=== PATIENT | female | born 1950 | race African-American/Black ===

== ENCOUNTER 2018-02-26 11:37 | Emergency (ER) | payer MEDICARE, OTHER ==
[~2018-02-26] VITALS: Ht 578.2 cm; Wt 96.0 kg
[2018-02-26] MEDS ORDERED: ondansetron/PF 4mg/2ml inj IV ONE (13:00)
[2018-02-26 13:32] LABS: BASOPHILS % (AUTO) 0.6 % (0-1); EOSINOPHILS # (AUTO) 0.3 X10'3 (0-0.9); EOSINOPHILS % (AUTO) 3.6 % (0-6); HEMATOCRIT 39.3 % (35.0-45.0); HEMOGLOBIN 13.3 g/dl (12.0-16.0); LYMPHOCYTES # (AUTO) 1.5 X10'3 (1.1-4.8); LYMPHOCYTES % (AUTO) 20.3 % (21-51); MEAN CORPUSCULAR HEMOGLOBIN 29.2 PG (27.0-31.0); MEAN CORPUSCULAR HGB CONC 33.7 % (33.0-36.5); MEAN CORPUSCULAR VOLUME 86.7 FL (78-98); MEAN PLATELET VOLUME 8.1 FL (7.4-10.4); MONOCYTES # (AUTO) 0.6 X10'3 (0-0.9); MONOCYTES % (AUTO) 7.9 % (2-12); NEUTROPHILS # (AUTO) 4.9 X10'3 (1.8-7.7); NEUTROPHILS % (AUTO) 67.6 % (42-75); PLATELET COUNT 234 X10'3 (140-440); RED BLOOD COUNT 4.53 X10'6 (4.20-5.60); RED CELL DISTRIBUTION WIDTH 16.5 % (11.5-14.5); WHITE BLOOD COUNT 7.2 X10'3 (4.5-11.0)
[2018-02-26 13:46] LABS: ALANINE AMINOTRANSFERASE 21 U/L (12-78); ALBUMIN 3.1 G/DL (3.4-5.0); ALBUMIN/GLOBULIN RATIO 0.8 (1.1-1.5); ALKALINE PHOSPHATASE 123 IU/L (46-116); ANION GAP 7 (8-16); ASPARTATE AMINO TRANSFERASE 25 U/L (10-37); BILIRUBIN,TOTAL 0.4 MG/DL (0.1-1.0); BLOOD UREA NITROGEN 4 MG/DL (7-18); BUN/CREATININE RATIO 3.6 (6.6-38.0); CALCIUM 9.2 MG/DL (8.5-10.1); CHLORIDE 107 MMOL/L (99-107); CREATININE 1.12 MG/DL (0.40-0.90); GLUCOSE 103 MG/DL (70-104); LIPASE 107 U/L (73-393); POTASSIUM 3.2 MMOL/L (3.5-5.1); SODIUM 145 MMOL/L (135-145); TOTAL CARBON DIOXIDE 31.5 MMOL/L (24-32); TOTAL PROTEIN 6.9 G/DL (6.4-8.2); eGFR 48 ML/MIN
[2018-02-26] MEDS ORDERED: ONDA4TAB6 PO (14:03)
[2018-02-26 14:13] VITALS: BP 152/88
== END 2018-02-26 14:14 | disposition home or self-care (01) ==
LOC: ER 11:38
DX: K74.60 Unspecified cirrhosis of liver (principal); R19.7 Diarrhea, unspecified; R11.0 Nausea; E11.42 Type 2 diabetes mellitus with diabetic polyneuropathy; I10 Essential (primary) hypertension; J44.9 Chronic obstructive pulmonary disease, unspecified; K42.9 Umbilical hernia without obstruction or gangrene; Z90.49 Acquired absence of other specified parts of digestive tract; Z88.5 Allergy status to narcotic agent; Z79.899 Other long term (current) drug therapy
CPT/HCPCS: 36415; 74176; 80053; 83690; 85025; 96374; 99285; J2405

== ENCOUNTER 2018-03-05 15:34 | Emergency (ER) | payer MEDICARE, OTHER ==
[~2018-03-05] VITALS: Ht 167.6 cm; Wt 96.0 kg
[~2018-03-05 15:34] MED LIST: ONDA4TAB6 PO
[2018-03-05 16:04] LABS: BASOPHILS % (AUTO) 0.4 % (0-1); EOSINOPHILS # (AUTO) 0.4 X10'3 (0-0.9); EOSINOPHILS % (AUTO) 6.6 % (0-6); HEMOGLOBIN 13.5 g/dl (12.0-16.0); LYMPHOCYTES # (AUTO) 1.3 X10'3 (1.1-4.8); LYMPHOCYTES % (AUTO) 20.7 % (21-51); MEAN CORPUSCULAR HEMOGLOBIN 29.1 PG (27.0-31.0); MEAN CORPUSCULAR HGB CONC 33.7 % (33.0-36.5); MEAN CORPUSCULAR VOLUME 86.4 FL (78-98); MEAN PLATELET VOLUME 9.1 FL (7.4-10.4); MONOCYTES # (AUTO) 0.5 X10'3 (0-0.9); MONOCYTES % (AUTO) 8.4 % (2-12); NEUTROPHILS # (AUTO) 3.9 X10'3 (1.8-7.7); NEUTROPHILS % (AUTO) 63.9 % (42-75); PLATELET COUNT 228 X10'3 (140-440); RED BLOOD COUNT 4.63 X10'6 (4.20-5.60); RED CELL DISTRIBUTION WIDTH 16.8 % (11.5-14.5); WHITE BLOOD COUNT 6.2 X10'3 (4.5-11.0)
[2018-03-05 16:14] LABS: INR 1.1 INR; PARTIAL THROMBOPLASTIN TIME 28 SECONDS (22-32); PROTHROMBIN TIME 11.2 SECONDS (9.0-12.0)
[2018-03-05 16:19] LABS: ALANINE AMINOTRANSFERASE 20 U/L (12-78); ALBUMIN 3.1 G/DL (3.4-5.0); ALBUMIN/GLOBULIN RATIO 0.8 (1.1-1.5); ALKALINE PHOSPHATASE 124 IU/L (46-116); ANION GAP 8 (8-16); ASPARTATE AMINO TRANSFERASE 26 U/L (10-37); BILIRUBIN,TOTAL 0.5 MG/DL (0.1-1.0); BLOOD UREA NITROGEN 5 MG/DL (7-18); BUN/CREATININE RATIO 4.1 (6.6-38.0); CALCIUM 9.1 MG/DL (8.5-10.1); CHLORIDE 104 MMOL/L (99-107); CREATININE 1.23 MG/DL (0.40-0.90); GLUCOSE 196 MG/DL (70-104); SODIUM 143 MMOL/L (135-145); TOTAL CARBON DIOXIDE 31.5 MMOL/L (24-32); eGFR 52 ML/MIN
[2018-03-05 16:22] LABS: POTASSIUM 2.6 MMOL/L (3.5-5.1)
[2018-03-05] MEDS ORDERED: potassium 10mEq/100ml NS w/LIDOcaine (10mg/bag) IV ONE (16:40)
[2018-03-05] MEDS ORDERED: potassium Cl 20 mEq SR tablet PO ONE (16:40)
[2018-03-05] MEDS ORDERED: ondansetron/PF 4mg/2ml inj IV ONE (16:40)
[2018-03-05 17:13] LABS: LIPASE 68 U/L (73-393)
[2018-03-05 18:27] LABS: CLARITY,URINE SLIGHTLY CLOUDY (Clear); COLOR,URINE YELLOW (Yellow); GLUCOSE, URINE NEGATIVE (Neg); KETONES,URINE NEGATIVE (Neg); LEUKOCYTE ESTERASE ,URINE MODERATE (Neg); NITRITES, URINE NEGATIVE (Neg); OCCULT BLOOD,URINE TRACE-INTACT (Neg); PROTEIN,URINE 30 mg/dl (Neg); UROBILINOGEN,URINE 0.2 E.U/dL (0.2-1.0)
[2018-03-05 18:29] LABS: UA COLLECTION TYPE CLN CATCH MIDSTREAM
[2018-03-05 18:39] LABS: WBC,URINE 30-50 /HPF (0-4)
[2018-03-05 18:40] LABS: RBC,URINE 0-2 /HPF (0-2)
[2018-03-05 18:41] LABS: BACTERIA,URINE FEW /HPF (Neg); MUCUS STRANDS MODERATE /LPF (Neg); SQUAMOUS EPITHELIAL CELL,UR MODERATE /LPF (FEW); TRANSITIONAL EPI CELLS,URINE FEW /HPF
[2018-03-05] MEDS ORDERED: ONDA4TAB6 PO (19:44)
[2018-03-05 20:14] VITALS: BP 127/73
== END 2018-03-05 20:16 | disposition home or self-care (01) ==
LOC: ER 15:35
DX: E87.6 Hypokalemia (principal); R11.2 Nausea with vomiting, unspecified; R53.81 Other malaise; G62.9 Polyneuropathy, unspecified; I10 Essential (primary) hypertension; J44.9 Chronic obstructive pulmonary disease, unspecified; E11.9 Type 2 diabetes mellitus without complications; G89.29 Other chronic pain; Z76.0 Encounter for issue of repeat prescription; Z86.73 Personal history of transient ischemic attack (TIA), and cerebral infarction without residual deficits; Z90.49 Acquired absence of other specified parts of digestive tract; Z90.710 Acquired absence of both cervix and uterus; Z88.5 Allergy status to narcotic agent; Z85.3 Personal history of malignant neoplasm of breast
CPT/HCPCS: 36415; 71045; 80053; 81001; 83690; 84484; 85025; 85610; 85730; 87077; 87088; 93005; 96365; 96375; 99285; J2405; 96361; 96374

== ENCOUNTER 2018-03-19 21:26 | Inpatient (IN) | payer MEDICARE, OTHER ==
[~2018-03-19] VITALS: Ht 167.6 cm; Wt 98.4 kg
[2018-03-19 00:40] VITALS: BP 93/71
[2018-03-19] MEDS ORDERED: morphine 4 MG/ML inj SYRINge IV ONE (21:50)
[2018-03-19] MEDS ORDERED: aspirin 81mg tab.chew PO ONE (21:50)
[2018-03-19 22:05] LABS: BASOPHILS % (AUTO) 0.4 % (0-1); EOSINOPHILS # (AUTO) 0.3 X10'3 (0-0.9); EOSINOPHILS % (AUTO) 3.8 % (0-6); HEMATOCRIT 38.8 % (35.0-45.0); HEMOGLOBIN 12.8 g/dl (12.0-16.0); LYMPHOCYTES # (AUTO) 2.1 X10'3 (1.1-4.8); LYMPHOCYTES % (AUTO) 29.6 % (21-51); MEAN CORPUSCULAR HEMOGLOBIN 29.1 PG (27.0-31.0); MEAN CORPUSCULAR HGB CONC 32.9 % (33.0-36.5); MEAN CORPUSCULAR VOLUME 88.3 FL (78-98); MONOCYTES # (AUTO) 0.6 X10'3 (0-0.9); MONOCYTES % (AUTO) 8.7 % (2-12); NEUTROPHILS # (AUTO) 4.1 X10'3 (1.8-7.7); NEUTROPHILS % (AUTO) 57.5 % (42-75); PLATELET COUNT 192 X10'3 (140-440); RED BLOOD COUNT 4.39 X10'6 (4.20-5.60); RED CELL DISTRIBUTION WIDTH 16.6 % (11.5-14.5); WHITE BLOOD COUNT 7.2 X10'3 (4.5-11.0)
[2018-03-19 22:17] LABS: INR 1.1 INR; PARTIAL THROMBOPLASTIN TIME 27 SECONDS (22-32); PROTHROMBIN TIME 11.1 SECONDS (9.0-12.0)
[2018-03-19 22:31] LABS: ALANINE AMINOTRANSFERASE 26 U/L (12-78); ALBUMIN 3.1 G/DL (3.4-5.0); ALBUMIN/GLOBULIN RATIO 0.9 (1.1-1.5); ALKALINE PHOSPHATASE 115 IU/L (46-116); ANION GAP 8 (8-16); ASPARTATE AMINO TRANSFERASE 36 U/L (10-37); BILIRUBIN,TOTAL 0.3 MG/DL (0.1-1.0); BLOOD UREA NITROGEN 4 MG/DL (7-18); CALCIUM 9.3 MG/DL (8.5-10.1); CHLORIDE 104 MMOL/L (99-107); GLUCOSE 124 MG/DL (70-104); SODIUM 143 MMOL/L (135-145); TOTAL CARBON DIOXIDE 31.5 MMOL/L (24-32); TOTAL PROTEIN 6.4 G/DL (6.4-8.2); eGFR 60 ML/MIN
[2018-03-19 22:39] LABS: BUN/CREATININE RATIO 3.6 (6.6-38.0); POTASSIUM 2.6 MMOL/L (3.5-5.1)
[2018-03-19] MEDS ORDERED: potassium Cl oral solution 20 MEQ/15 ML PO ONE (22:45)
[2018-03-19] MEDS ORDERED: nitroGLYCERIN 0.4mg SUBLingual tab SL PRN (23:05)
[2018-03-19] MEDS ORDERED: HYDR200T84 PO (23:29)
[2018-03-19] MEDS ORDERED: TRAM50TA2 PO (23:29)
[2018-03-19] MEDS ORDERED: PREG50CA PO (23:29)
[2018-03-19] MEDS ORDERED: FERR324T2 (23:29)
[2018-03-19] MEDS ORDERED: FERR324T (23:29)
[2018-03-19] MEDS ORDERED: LACT-28 PO (23:29)
[2018-03-19] MEDS ORDERED: ATOR80TA PO (23:29)
[2018-03-19] MEDS ORDERED: POTA20PA40 (23:29)
[2018-03-19] MEDS ORDERED: ISOS30TA6 PO (23:29)
[2018-03-19] MEDS ORDERED: ASPI-1265 PO (23:29)
[2018-03-19] MEDS ORDERED: DULO20CA50 PO (23:29)
[2018-03-19] MEDS ORDERED: CLOP75TA35 PO (23:29)
[2018-03-19] MEDS ORDERED: METO25TA6 PO (23:38)
[2018-03-19] MEDS ORDERED: FOLI0.4T2 PO (23:38)
[2018-03-19] MEDS ORDERED: DOCU250C4 PO (23:38)
[2018-03-19] MEDS ORDERED: MIRT15TA PO (23:38)
[2018-03-19] MEDS ORDERED: ALBU18HF2 INH (23:38)
[2018-03-19] MEDS ORDERED: SYN0.088T PO (23:38)
[2018-03-19] MEDS ORDERED: MAGN400T29 PO (23:38)
[2018-03-19] MEDS ORDERED: PANT-47 PO (23:38)
[2018-03-19] MEDS ORDERED: ONDA4TAB9 PO (23:38)
[2018-03-19] MEDS ORDERED: CALC-1197 PO (23:38)
[2018-03-19] MEDS ORDERED: THI100T PO (23:38)
[2018-03-19] MEDS ORDERED: albuterol 2.5 MG/3 ML nebule NEB PRN (23:45)
[2018-03-19] MEDS ORDERED: ondansetron 4mg rapidly disintigrating tab PO PRN (23:45)
[2018-03-19] MEDS ORDERED: magnesium 1gm/100ml D5W IVPB 100 ML IV PRN (23:50)
[2018-03-19] MEDS ORDERED: insulin Lispro (HumaLOG) vial - multi-dose SQ SCH (23:50)
[2018-03-19] MEDS ORDERED: glucagon, human recombinant 1mg kit SUBCUT PRN (23:50)
[2018-03-19] MEDS ORDERED: MESSAGE TO PHARMACY PO ONE (23:50)
[2018-03-19] MEDS ORDERED: ipratropium/albuterol 3ml nebule NEB PRN (23:50)
[2018-03-19] MEDS ORDERED: dextrose ORAL solution 15 GM/59 ML bottle PO PRN ×2 (23:50)
[2018-03-19] MEDS ORDERED: potassium Cl 40MEQ/NS 500ml 500 ML IV PRN ×2 (23:50)
[2018-03-19] MEDS ORDERED: magnesium 4gm in 100ml NS 100 ML IV PRN (23:50)
[2018-03-19] MEDS ORDERED: potassium Cl 20 mEq SR tablet PO PRN (23:50)
[2018-03-19] MEDS ORDERED: dextrose 50%-water 50ml dispensing syringe IV PRN ×2 (23:50)
[2018-03-19] MEDS ORDERED: acetaminophen 325mg tablet PO PRN ×2 (23:50)
[2018-03-19] MEDS ORDERED: ondansetron/PF 4mg/2ml inj IV PRN (23:50)
[2018-03-20] VITALS (23 sets, daily range): BP systolic 102–156; BP diastolic 55–93
[2018-03-20] MEDS ORDERED: metoprolol tartrate 1mg/ml inj IV PRN
[2018-03-20] MEDS ORDERED: CAFFEINE CITRATE 60 MG/3 ML injection vial IV PRN
[2018-03-20] MEDS: nitroGLYCERIN 0.4mg SUBLingual tab SL PRN ×2 (00:43→00:50)
[2018-03-20] MEDS ORDERED: morphine 2 MG/ML inj. syringe IV PRN (00:50)
[2018-03-20] MEDS ORDERED: morphine 4 MG/ML inj SYRINge IV PRN (00:50)
[2018-03-20] MEDS: pregabalin 25mg capsule PO SCH ×4 (01:11→23:12)
[2018-03-20 04:28] LABS: ALANINE AMINOTRANSFERASE 26 U/L (12-78); ALBUMIN/GLOBULIN RATIO 0.9 (1.1-1.5); ALKALINE PHOSPHATASE 100 IU/L (46-116); ANION GAP 5 (8-16); ASPARTATE AMINO TRANSFERASE 30 U/L (10-37); BILIRUBIN,TOTAL 0.4 MG/DL (0.1-1.0); BLOOD UREA NITROGEN 4 MG/DL (7-18); BUN/CREATININE RATIO 3.7 (6.6-38.0); CHLORIDE 104 MMOL/L (99-107); CREATININE 1.09 MG/DL (0.40-0.90); GLUCOSE 109 MG/DL (70-104); POTASSIUM 3.4 MMOL/L (3.5-5.1); SODIUM 142 MMOL/L (135-145); TOTAL CARBON DIOXIDE 33.4 MMOL/L (24-32); TOTAL PROTEIN 6.2 G/DL (6.4-8.2); eGFR 60 ML/MIN
[2018-03-20 04:31] LABS: CHOL/HDL RATIO 1.7 (0.00-4.99); CHOLESTEROL 108 MG/DL (0-200); HDL CHOLESTEROL 64 MG/DL (35-60); LDL CHOLESTEROL 39 MG/DL (50-100); MAGNESIUM 1.7 MG/DL (1.5-2.4); TRIGLYCERIDES 66 MG/DL (20-135)
[2018-03-20 05:32] LABS: BASOPHILS % (AUTO) 0.5 % (0-1); EOSINOPHILS # (AUTO) 0.3 X10'3 (0-0.9); EOSINOPHILS % (AUTO) 5.3 % (0-6); HEMATOCRIT 36.8 % (35.0-45.0); HEMOGLOBIN 12.5 g/dl (12.0-16.0); LYMPHOCYTES # (AUTO) 1.7 X10'3 (1.1-4.8); LYMPHOCYTES % (AUTO) 29.8 % (21-51); MEAN CORPUSCULAR HEMOGLOBIN 29.9 PG (27.0-31.0); MEAN CORPUSCULAR HGB CONC 34.1 % (33.0-36.5); MEAN CORPUSCULAR VOLUME 87.9 FL (78-98); MEAN PLATELET VOLUME 9.4 FL (7.4-10.4); MONOCYTES # (AUTO) 0.6 X10'3 (0-0.9); MONOCYTES % (AUTO) 10.5 % (2-12); NEUTROPHILS # (AUTO) 3.1 X10'3 (1.8-7.7); NEUTROPHILS % (AUTO) 53.9 % (42-75); PLATELET COUNT 156 X10'3 (140-440); RED BLOOD COUNT 4.18 X10'6 (4.20-5.60); RED CELL DISTRIBUTION WIDTH 16.8 % (11.5-14.5); WHITE BLOOD COUNT 5.8 X10'3 (4.5-11.0)
[2018-03-20] MEDS ORDERED: regadenoson 0.4mg/5ml syringe IV ONE ×3 (07:50→09:24)
[2018-03-20] MEDS: folic acid 0.4mg tablet PO SCH (07:58)
[2018-03-20] MEDS: clopidogrel 75mg tablet PO SCH (07:58)
[2018-03-20] MEDS: potassium Cl 20 mEq SR tablet PO PRN ×3 (07:59→23:15)
[2018-03-20] MEDS: calcium carbonate/vitamin D3 tablet PO SCH ×2 (07:59→19:43)
[2018-03-20] MEDS: docusate sod 250mg capsule PO SCH (07:59)
[2018-03-20] MEDS: pantoprazole 40mg Tablet.DR PO SCH (07:59)
[2018-03-20] MEDS ORDERED: magnesium oxide 400mg tablet PO SCH (08:00)
[2018-03-20] MEDS: levoTHYROXINE 88mcg tablet PO SCH (08:00)
[2018-03-20] MEDS: metoprolol tartrate 25mg tablet PO SCH ×2 (08:00→19:43)
[2018-03-20] MEDS: isosorbide mononitrate 30mg tab.SR.24H PO SCH (08:00)
[2018-03-20] MEDS: aspirin 81mg tab.chew PO SCH (08:00)
[2018-03-20] MEDS: K and/or MAG REPLACEMENT MC SCH (08:00)
[2018-03-20] MEDS: hydroxychloroquine 200mg tablet PO SCH (08:00)
[2018-03-20] MEDS ORDERED: LACTOSE FREE FOOD PO SCH (08:00)
[2018-03-20] MEDS: duloxetine 20mg capsule.DR PO SCH (08:01)
[2018-03-20] MEDS: thiamine 100mg tablet PO SCH ×2 (08:01→19:43)
[2018-03-20] MEDS ORDERED: CAFFEINE CITRATE 60 MG/3 ML injection vial IV ONE (09:23)
[2018-03-20] MEDS ORDERED: midazolam 2 mg/2 ml injection ONE (15:55)
[2018-03-20] MEDS ORDERED: lidocaine 1%/epinephrine 1:100,000 injection 50ml vial ONE (15:55)
[2018-03-20] MEDS ORDERED: fentaNYL/PF 50MCG/1 ML 2ML syringe ONE (15:55)
[2018-03-20] MEDS ORDERED: iohexol 350MG/ML 100ml bottle IV ONE (15:56)
[2018-03-20] MEDS ORDERED: OXAZEpam 15mg capsule PO PRN (17:10)
[2018-03-20] MEDS ORDERED: normal saline 1000ml 1,000 ML IV SCH (17:10)
[2018-03-20] MEDS ORDERED: proCHLORperazine 10 MG/2 ml inj IV PRN (17:10)
[2018-03-20] MEDS: HYDROcodone/acetaminophen 5mg/325mg tablet PO PRN (19:44)
[2018-03-20] MEDS ORDERED: insulin glargine (Lantus) pen - multi-dose SQ SCH (21:00)
[2018-03-20] MEDS ORDERED: mirtazapine 15mg tablet PO SCH (21:00)
[2018-03-20] MEDS ORDERED: atorvastatin 20mg tablet PO SCH (21:00)
[2018-03-21 03:00] VITALS: BP 133/70
[2018-03-21 05:37] LABS: BASOPHILS % (AUTO) 0.5 % (0-1); EOSINOPHILS # (AUTO) 0.2 X10'3 (0-0.9); HEMATOCRIT 36.2 % (35.0-45.0); HEMOGLOBIN 12.1 g/dl (12.0-16.0); LYMPHOCYTES # (AUTO) 1.3 X10'3 (1.1-4.8); LYMPHOCYTES % (AUTO) 29.2 % (21-51); MEAN CORPUSCULAR HGB CONC 33.3 % (33.0-36.5); MEAN CORPUSCULAR VOLUME 86.9 FL (78-98); MEAN PLATELET VOLUME 9.5 FL (7.4-10.4); MONOCYTES # (AUTO) 0.4 X10'3 (0-0.9); MONOCYTES % (AUTO) 8.9 % (2-12); NEUTROPHILS # (AUTO) 2.6 X10'3 (1.8-7.7); NEUTROPHILS % (AUTO) 56.4 % (42-75); PLATELET COUNT 136 X10'3 (140-440); RED BLOOD COUNT 4.16 X10'6 (4.20-5.60); RED CELL DISTRIBUTION WIDTH 16.8 % (11.5-14.5); WHITE BLOOD COUNT 4.5 X10'3 (4.5-11.0)
[2018-03-21 05:57] LABS: ALANINE AMINOTRANSFERASE 25 U/L (12-78); ALBUMIN 2.8 G/DL (3.4-5.0); ALBUMIN/GLOBULIN RATIO 0.9 (1.1-1.5); ALKALINE PHOSPHATASE 110 IU/L (46-116); ANION GAP 6 (8-16); ASPARTATE AMINO TRANSFERASE 38 U/L (10-37); BILIRUBIN,TOTAL 0.5 MG/DL (0.1-1.0); BLOOD UREA NITROGEN 7 MG/DL (7-18); BUN/CREATININE RATIO 6.7 (6.6-38.0); CALCIUM 8.7 MG/DL (8.5-10.1); CHLORIDE 106 MMOL/L (99-107); CREATININE 1.04 MG/DL (0.40-0.90); GLUCOSE 98 MG/DL (70-104); MAGNESIUM 1.7 MG/DL (1.5-2.4); POTASSIUM 3.3 MMOL/L (3.5-5.1); SODIUM 142 MMOL/L (135-145); TOTAL CARBON DIOXIDE 30.5 MMOL/L (24-32); TOTAL PROTEIN 5.8 G/DL (6.4-8.2); eGFR 64 ML/MIN
[2018-03-21 07:19] VITALS: BP 145/80
[2018-03-21] MEDS: docusate sod 250mg capsule PO SCH (07:39)
[2018-03-21] MEDS: duloxetine 20mg capsule.DR PO SCH (07:39)
[2018-03-21] MEDS: HYDROcodone/acetaminophen 5mg/325mg tablet PO PRN (07:39)
[2018-03-21] MEDS: levoTHYROXINE 88mcg tablet PO SCH (07:39)
[2018-03-21] MEDS: hydroxychloroquine 200mg tablet PO SCH (07:39)
[2018-03-21] MEDS: folic acid 0.4mg tablet PO SCH (07:39)
[2018-03-21] MEDS: pregabalin 25mg capsule PO SCH (07:39)
[2018-03-21] MEDS: pantoprazole 40mg Tablet.DR PO SCH (07:39)
[2018-03-21] MEDS: aspirin 81mg tab.chew PO SCH (07:39)
[2018-03-21] MEDS: thiamine 100mg tablet PO SCH (07:40)
[2018-03-21] MEDS: calcium carbonate/vitamin D3 tablet PO SCH (07:40)
[2018-03-21] MEDS: metoprolol tartrate 25mg tablet PO SCH (07:40)
[2018-03-21] MEDS: potassium Cl 20 mEq SR tablet PO PRN (07:40)
[2018-03-21] MEDS: clopidogrel 75mg tablet PO SCH (07:40)
[2018-03-21] MEDS: isosorbide mononitrate 30mg tab.SR.24H PO SCH (07:40)
[2018-03-21] MEDS: K and/or MAG REPLACEMENT MC SCH (07:43)
== END 2018-03-21 13:15 | disposition home or self-care (01) | DRG 287 ==
LOC: ER 21:27 → ED HOLD 23:47 → PCU 3S 03-20 00:34
PROVIDERS: ADMIT Family Medicine; ATTEND Family Medicine
PROC: 4A023N7 Measurement of Cardiac Sampling and Pressure, Left Heart, Percutaneous Approach (ICD-10-PCS; principal; 2018-03-20)
PROC: 3E033HZ Introduction of Radioactive Substance into Peripheral Vein, Percutaneous Approach (ICD-10-PCS; 2018-03-20)
PROC: 4A02XM4 Measurement of Cardiac Total Activity, External Approach (ICD-10-PCS; 2018-03-20)
PROC: B2111ZZ Fluoroscopy of Multiple Coronary Arteries using Low Osmolar Contrast (ICD-10-PCS; 2018-03-20)
PROC: B2151ZZ Fluoroscopy of Left Heart using Low Osmolar Contrast (ICD-10-PCS; 2018-03-20)
DX: R07.89 Other chest pain (principal); J44.9 Chronic obstructive pulmonary disease, unspecified; E87.6 Hypokalemia; E11.42 Type 2 diabetes mellitus with diabetic polyneuropathy; E78.5 Hyperlipidemia, unspecified; K21.9 Gastro-esophageal reflux disease without esophagitis; R94.39 Abnormal result of other cardiovascular function study; F32.9 Major depressive disorder, single episode, unspecified; G89.29 Other chronic pain; E78.00 Pure hypercholesterolemia, unspecified; I10 Essential (primary) hypertension; Z90.49 Acquired absence of other specified parts of digestive tract; Z90.710 Acquired absence of both cervix and uterus; Z88.5 Allergy status to narcotic agent; Z79.899 Other long term (current) drug therapy; Z79.82 Long term (current) use of aspirin; Z79.02 Long term (current) use of antithrombotics/antiplatelets; Z85.3 Personal history of malignant neoplasm of breast; Z86.73 Personal history of transient ischemic attack (TIA), and cerebral infarction without residual deficits; Z87.891 Personal history of nicotine dependence; Z82.49 Family history of ischemic heart disease and other diseases of the circulatory system
CPT/HCPCS: 36415; 71045; 78452; 80053; 80061; 82948; 83036; 83735; 83880; 84443; 84484; 85025; 85610; 85730; 87070; 93005; 93017; 93306; 93458; 94760; 99152; A4620; A6257; A9500; C1769; J1644; J1815; J2250; J2270; J3010; J3490; J7030; Q9967

== ENCOUNTER 2018-03-25 10:14 | Emergency (ER) | payer MEDICARE, OTHER ==
[~2018-03-25] VITALS: Ht 177.8 cm; Wt 90.9 kg
[~2018-03-25 10:14] MED LIST changes: +ALBU18HF2 INH; +ASPI-1265 PO; +ATOR80TA PO; +CALC-1197 PO; +CLOP75TA35 PO; +DOCU250C4 PO; +DULO20CA50 PO; +FERR324T; +FOLI0.4T2 PO; +HYDR200T84 PO; +ISOS30TA6 PO; +LACT-28 PO; +MAGN400T29 PO; +METO25TA6 PO; +MIRT15TA PO; -ONDA4TAB6 PO; +ONDA4TAB9 PO; +PANT-47 PO; +POTA20PA40; +PREG50CA PO; +SYN0.088T PO; +THI100T PO; +TRAM50TA2 PO
[2018-03-25] MEDS ORDERED: normal saline 1000ML IV soln IVB ONE (11:10)
[2018-03-25] MEDS ORDERED: morphine 4 MG/ML inj SYRINge IV ONE (11:10)
[2018-03-25 11:23] LABS: BASOPHILS % (AUTO) 0.4 % (0-1); EOSINOPHILS # (AUTO) 0.1 X10'3 (0-0.9); EOSINOPHILS % (AUTO) 3.1 % (0-6); HEMATOCRIT 42.1 % (35.0-45.0); HEMOGLOBIN 13.7 g/dl (12.0-16.0); LYMPHOCYTES % (AUTO) 23.3 % (21-51); MEAN CORPUSCULAR HEMOGLOBIN 28.8 PG (27.0-31.0); MEAN CORPUSCULAR HGB CONC 32.5 % (33.0-36.5); MEAN CORPUSCULAR VOLUME 88.5 FL (78-98); MONOCYTES # (AUTO) 0.3 X10'3 (0-0.9); MONOCYTES % (AUTO) 5.8 % (2-12); NEUTROPHILS # (AUTO) 3.1 X10'3 (1.8-7.7); NEUTROPHILS % (AUTO) 67.4 % (42-75); PLATELET COUNT 159 X10'3 (140-440); RED BLOOD COUNT 4.76 X10'6 (4.20-5.60); RED CELL DISTRIBUTION WIDTH 15.8 % (11.5-14.5); WHITE BLOOD COUNT 4.5 X10'3 (4.5-11.0)
[2018-03-25 11:34] LABS: ALANINE AMINOTRANSFERASE 28 U/L (12-78); ALBUMIN 3.3 G/DL (3.4-5.0); ALBUMIN/GLOBULIN RATIO 0.9 (1.1-1.5); ALKALINE PHOSPHATASE 123 IU/L (46-116); ANION GAP 10 (8-16); ASPARTATE AMINO TRANSFERASE 36 U/L (10-37); BILIRUBIN,TOTAL 0.5 MG/DL (0.1-1.0); BLOOD UREA NITROGEN 4 MG/DL (7-18); BUN/CREATININE RATIO 3.6 (6.6-38.0); CALCIUM 9.4 MG/DL (8.5-10.1); CHLORIDE 105 MMOL/L (99-107); CREATININE 1.11 MG/DL (0.40-0.90); GLUCOSE 129 MG/DL (70-104); SODIUM 141 MMOL/L (135-145); eGFR 59 ML/MIN
[2018-03-25 11:38] LABS: POTASSIUM 2.8 MMOL/L (3.5-5.1)
[2018-03-25] MEDS ORDERED: ketorolac tromethamine 15mg/ml inj. IV ONE (11:45)
[2018-03-25] MEDS ORDERED: potassium 10mEq/100ml NS w/LIDOcaine (10mg/bag) IV ONE (12:15)
[2018-03-25 13:44] VITALS: BP 173/96
[2018-03-27] MEDS ORDERED: POTA20TA19 PO (10:05)
[2018-03-27] MEDS ORDERED: AZIT-63 PO (10:05)
[2018-03-27] MEDS ORDERED: PRED20TA PO (10:05)
== END 2018-03-25 13:45 | disposition home or self-care (01) ==
LOC: ER 10:15
DX: R07.89 Other chest pain (principal); R10.13 Epigastric pain; I11.0 Hypertensive heart disease with heart failure; I50.9 Heart failure, unspecified; E11.42 Type 2 diabetes mellitus with diabetic polyneuropathy; J44.9 Chronic obstructive pulmonary disease, unspecified; G89.29 Other chronic pain; Z85.3 Personal history of malignant neoplasm of breast; Z95.5 Presence of coronary angioplasty implant and graft; Z90.49 Acquired absence of other specified parts of digestive tract; Z90.710 Acquired absence of both cervix and uterus; Z98.890 Other specified postprocedural states; Z86.73 Personal history of transient ischemic attack (TIA), and cerebral infarction without residual deficits; Z88.5 Allergy status to narcotic agent; Z79.82 Long term (current) use of aspirin; Z79.899 Other long term (current) drug therapy
CPT/HCPCS: 36415; 71046; 80053; 84132; 84484; 85025; 93005; 96361; 96374; 96375; 99285; J1885; J2270; J3480; J7030

== ENCOUNTER 2018-04-13 08:33 | Emergency (ER) | payer MEDICARE, OTHER ==
[~2018-04-13] VITALS: Ht 167.6 cm; Wt 77.8 kg
[~2018-04-13 08:33] MED LIST changes: +AZIT-63 PO
[2018-04-13 09:07] LABS: CLARITY,URINE SLIGHTLY CLOUDY (Clear); COLOR,URINE YELLOW (Yellow); GLUCOSE, URINE NEGATIVE (Neg); KETONES,URINE NEGATIVE (Neg); LEUKOCYTE ESTERASE ,URINE MODERATE (Neg); NITRITES, URINE NEGATIVE (Neg); OCCULT BLOOD,URINE LARGE (Neg); PROTEIN,URINE 30 mg/dl (Neg); UROBILINOGEN,URINE 0.2 E.U/dL (0.2-1.0)
[2018-04-13 09:08] LABS: BASOPHILS % (AUTO) 0.6 % (0-1); EOSINOPHILS # (AUTO) 0.1 X10'3 (0-0.9); HEMATOCRIT 48.8 % (35.0-45.0); HEMOGLOBIN 16.1 g/dl (12.0-16.0); LYMPHOCYTES # (AUTO) 1.4 X10'3 (1.1-4.8); LYMPHOCYTES % (AUTO) 24.8 % (21-51); MEAN CORPUSCULAR HEMOGLOBIN 28.7 PG (27.0-31.0); MEAN CORPUSCULAR VOLUME 86.9 FL (78-98); MEAN PLATELET VOLUME 9.4 FL (7.4-10.4); MONOCYTES # (AUTO) 0.4 X10'3 (0-0.9); MONOCYTES % (AUTO) 7.7 % (2-12); NEUTROPHILS # (AUTO) 3.6 X10'3 (1.8-7.7); NEUTROPHILS % (AUTO) 64.9 % (42-75); PLATELET COUNT 226 X10'3 (140-440); RED BLOOD COUNT 5.61 X10'6 (4.20-5.60); RED CELL DISTRIBUTION WIDTH 16.4 % (11.5-14.5); WHITE BLOOD COUNT 5.5 X10'3 (4.5-11.0)
[2018-04-13 09:14] LABS: UA COLLECTION TYPE CLN CATCH MIDSTREAM
[2018-04-13 09:15] LABS: HYALINE CASTS >30 /LPF (NEGATIVE); MUCUS STRANDS MANY /LPF (Neg); SQUAMOUS EPITHELIAL CELL,UR MODERATE /LPF (FEW); WBC CLUMPS,URINE MODERATE /HPF (NEGATIVE)
[2018-04-13 09:18] LABS: WBC,URINE 30-50 /HPF (0-4)
[2018-04-13 09:19] LABS: BACTERIA,URINE 1+ /HPF (Neg)
[2018-04-13] MEDS ORDERED: ondansetron/PF 4mg/2ml inj IV ONE (09:20)
[2018-04-13] MEDS ORDERED: normal saline 1000ML IV soln IVB ONE (09:20)
[2018-04-13 09:25] LABS: ALANINE AMINOTRANSFERASE 32 U/L (12-78); ALBUMIN 3.7 G/DL (3.4-5.0); ALKALINE PHOSPHATASE 114 IU/L (46-116); ANION GAP 15 (8-16); ASPARTATE AMINO TRANSFERASE 33 U/L (10-37); BILIRUBIN,TOTAL 0.5 MG/DL (0.1-1.0); BLOOD UREA NITROGEN 6 MG/DL (7-18); BUN/CREATININE RATIO 4.3 (6.6-38.0); CALCIUM 9.6 MG/DL (8.5-10.1); CHLORIDE 100 MMOL/L (99-107); CREATININE 1.38 MG/DL (0.40-0.90); GLUCOSE 166 MG/DL (70-104); SODIUM 139 MMOL/L (135-145); TOTAL CARBON DIOXIDE 24.3 MMOL/L (24-32); TOTAL PROTEIN 7.5 G/DL (6.4-8.2); eGFR 46 ML/MIN
[2018-04-13 09:28] LABS: POTASSIUM 2.6 MMOL/L (3.5-5.1)
[2018-04-13] MEDS ORDERED: potassium 10mEq/100ml NS w/LIDOcaine (10mg/bag) IV ONE (09:35)
[2018-04-13 09:51] LABS: INR 1.1 INR; PROTHROMBIN TIME 11.1 SECONDS (9.0-12.0)
[2018-04-13 10:01] LABS: LIPASE 142 U/L (73-393)
[2018-04-13] MEDS ORDERED: HYDROmorphone 1 mg/ml syringe IV ONE (10:25)
[2018-04-13] MEDS ORDERED: magnesium oxide 400mg tablet PO ONE (11:35)
[2018-04-13] MEDS ORDERED: potassium Cl oral solution 20 MEQ/15 ML PO ONE (11:40)
[2018-04-13] MEDS ORDERED: POTA20TA19 PO (13:25)
[2018-04-13] MEDS ORDERED: NITR100C6 PO (13:25)
[2018-04-13] MEDS ORDERED: ONDA4TAB9 SL (13:25)
[2018-04-13 14:05] VITALS: BP 143/78
== END 2018-04-13 14:07 | disposition home or self-care (01) ==
LOC: ER 08:34
DX: E87.6 Hypokalemia (principal); N39.0 Urinary tract infection, site not specified; R19.7 Diarrhea, unspecified; R10.13 Epigastric pain; E11.42 Type 2 diabetes mellitus with diabetic polyneuropathy; I11.0 Hypertensive heart disease with heart failure; I50.9 Heart failure, unspecified; J44.9 Chronic obstructive pulmonary disease, unspecified; G89.29 Other chronic pain; Z85.3 Personal history of malignant neoplasm of breast; Z95.5 Presence of coronary angioplasty implant and graft; Z86.73 Personal history of transient ischemic attack (TIA), and cerebral infarction without residual deficits; Z90.49 Acquired absence of other specified parts of digestive tract; Z90.710 Acquired absence of both cervix and uterus; Z98.890 Other specified postprocedural states; Z79.82 Long term (current) use of aspirin; Z79.899 Other long term (current) drug therapy
CPT/HCPCS: 36415; 80053; 81001; 83690; 85025; 85610; 87088; 96361; 96365; 96375; 99284; J1170; J2405; J3480; J7030

== ENCOUNTER 2018-04-16 00:13 | Inpatient (IN) | payer MEDICARE, OTHER ==
[~2018-04-16] VITALS: Ht 167.6 cm; Wt 94.0 kg
[~2018-04-16 00:13] MED LIST changes: +NITR100C6 PO; +ONDA4TAB9 SL; +POTA20TA19 PO
[2018-04-16] MEDS ORDERED: ondansetron/PF 4mg/2ml inj IV ONE (00:45)
[2018-04-16] MEDS ORDERED: normal saline 1000ML IV soln IVB ONE (00:45)
[2018-04-16 01:13] LABS: INR 1.1 INR; PARTIAL THROMBOPLASTIN TIME 27 SECONDS (22-32); PROTHROMBIN TIME 11.3 SECONDS (9.0-12.0)
[2018-04-16 01:17] LABS: ALANINE AMINOTRANSFERASE 33 U/L (12-78); ALBUMIN 3.9 G/DL (3.4-5.0); ALBUMIN/GLOBULIN RATIO 1.1 (1.1-1.5); ALKALINE PHOSPHATASE 116 IU/L (46-116); ANION GAP 10 (8-16); ASPARTATE AMINO TRANSFERASE 33 U/L (10-37); BILIRUBIN,TOTAL 0.6 MG/DL (0.1-1.0); BLOOD UREA NITROGEN 7 MG/DL (7-18); BUN/CREATININE RATIO 4.7 (6.6-38.0); CALCIUM 9.9 MG/DL (8.5-10.1); CHLORIDE 102 MMOL/L (99-107); GLUCOSE 127 MG/DL (70-104); LIPASE 122 U/L (73-393); POTASSIUM 3.8 MMOL/L (3.5-5.1); SODIUM 139 MMOL/L (135-145); TOTAL CARBON DIOXIDE 26.7 MMOL/L (24-32); TOTAL PROTEIN 7.5 G/DL (6.4-8.2); eGFR 42 ML/MIN
[2018-04-16 01:25] LABS: BASOPHILS # (AUTO) 0.1 X10'3 (0-0.2); BASOPHILS % (AUTO) 0.8 % (0-1); EOSINOPHILS # (AUTO) 0.2 X10'3 (0-0.9); EOSINOPHILS % (AUTO) 3.1 % (0-6); HEMATOCRIT 46.9 % (35.0-45.0); HEMOGLOBIN 15.9 g/dl (12.0-16.0); LYMPHOCYTES # (AUTO) 2.3 X10'3 (1.1-4.8); LYMPHOCYTES % (AUTO) 32.8 % (21-51); MEAN CORPUSCULAR HEMOGLOBIN 29.8 PG (27.0-31.0); MEAN CORPUSCULAR HGB CONC 33.8 % (33.0-36.5); MEAN CORPUSCULAR VOLUME 88.2 FL (78-98); MEAN PLATELET VOLUME 10.2 FL (7.4-10.4); MONOCYTES # (AUTO) 0.6 X10'3 (0-0.9); MONOCYTES % (AUTO) 8.9 % (2-12); NEUTROPHILS # (AUTO) 3.8 X10'3 (1.8-7.7); NEUTROPHILS % (AUTO) 54.4 % (42-75); PLATELET COUNT 209 X10'3 (140-440); RED BLOOD COUNT 5.31 X10'6 (4.20-5.60); RED CELL DISTRIBUTION WIDTH 15.2 % (11.5-14.5)
[2018-04-16] MEDS ORDERED: mag hydrox/Alum hydrox/simeth 30ml oral suspension PO ONE (01:35)
[2018-04-16] MEDS ORDERED: famotidine/PF 10 mg/ml inj IV ONE (01:35)
[2018-04-16 05:24] LABS: CLARITY,URINE CLOUDY (Clear); COLOR,URINE AMBER (Yellow); GLUCOSE, URINE NEGATIVE (Neg); KETONES,URINE TRACE mg/dl (Neg); LEUKOCYTE ESTERASE ,URINE MODERATE (Neg); NITRITES, URINE NEGATIVE (Neg); OCCULT BLOOD,URINE NEGATIVE (Neg); PROTEIN,URINE 30 mg/dl (Neg); UROBILINOGEN,URINE 0.2 E.U/dL (0.2-1.0)
[2018-04-16 05:33] LABS: UA COLLECTION TYPE CLN CATCH MIDSTREAM
[2018-04-16 05:39] LABS: WBC,URINE 20-30 /HPF (0-4)
[2018-04-16 05:42] LABS: BACTERIA,URINE 2+ /HPF (Neg)
[2018-04-16 05:43] LABS: CAL OXALATE CRYSTALS 2+ /HPF (NEGATIVE); MUCUS STRANDS FEW /LPF (Neg); SQUAMOUS EPITHELIAL CELL,UR FEW /LPF (FEW)
[2018-04-16] MEDS ORDERED: ondansetron/PF 4mg/2ml inj IV PRN (06:00)
[2018-04-16] MEDS ORDERED: magnesium hydroxide 30ml (MOM) UD suspension PO PRN (06:00)
[2018-04-16] MEDS ORDERED: mag hydrox/Alum hydrox/simeth 30ml oral suspension PO PRN (06:00)
[2018-04-16] MEDS ORDERED: acetaminophen 325mg tablet PO PRN (06:00)
[2018-04-16] MEDS ORDERED: traMADol 50MG tablet PO PRN (06:15)
[2018-04-16] MEDS ORDERED: albuterol 2.5 MG/3 ML nebule NEB PRN (06:15)
[2018-04-16] MEDS: aspirin 81mg tab.chew PO SCH (07:17)
[2018-04-16] MEDS: hydroxychloroquine 200mg tablet PO SCH (07:17)
[2018-04-16] MEDS: pregabalin 25mg capsule PO SCH ×2 (07:18→16:44)
[2018-04-16] MEDS: levoTHYROXINE 88mcg tablet PO SCH (07:18)
[2018-04-16] MEDS: pregabalin 75mg capsule PO SCH ×2 (07:18→16:44)
[2018-04-16] MEDS: folic acid 0.4mg tablet PO SCH (07:20)
[2018-04-16] MEDS: thiamine 100mg tablet PO SCH ×2 (07:20→21:04)
[2018-04-16] MEDS: metoprolol tartrate 25mg tablet PO SCH ×2 (07:20→20:00)
[2018-04-16] MEDS: magnesium oxide 400mg tablet PO SCH ×2 (07:20→21:06)
[2018-04-16] MEDS: isosorbide mononitrate 30mg tab.SR.24H PO SCH (07:21)
[2018-04-16] MEDS: clopidogrel 75mg tablet PO SCH (07:21)
[2018-04-16] MEDS: pantoprazole 40mg Tablet.DR PO SCH (07:21)
[2018-04-16] MEDS: potassium Cl 20 mEq SR tablet PO SCH ×2 (07:21→21:06)
[2018-04-16] MEDS: duloxetine 20mg capsule.DR PO SCH (07:21)
[2018-04-16] MEDS: heparin, porcine 5000 units/ml vial SQ SCH ×2 (07:22→21:13)
[2018-04-16] MEDS ORDERED: nitrofuran/nitrofuran macrocrysal 100 MG capsule PO SCH (08:00)
[2018-04-16 09:50] VITALS: BP 124/68
[2018-04-16 11:00] VITALS: BP 117/68
[2018-04-16] MEDS ORDERED: pneumococcal 23-VAL P-sac vacc 25 mcg/0.5ml vial IMVAC ONE (15:15)
[2018-04-16 16:17] LABS: ALBUMIN 3.2 G/DL (3.4-5.0); ANION GAP 8 (8-16); BLOOD UREA NITROGEN 8 MG/DL (7-18); BUN/CREATININE RATIO 6.3 (6.6-38.0); CALCIUM 9.2 MG/DL (8.5-10.1); CHLORIDE 105 MMOL/L (99-107); CREATININE 1.27 MG/DL (0.40-0.90); GLUCOSE 96 MG/DL (70-104); POTASSIUM 4.1 MMOL/L (3.5-5.1); SODIUM 140 MMOL/L (135-145); TOTAL CARBON DIOXIDE 27.2 MMOL/L (24-32); eGFR 50 ML/MIN
[2018-04-16] MEDS: normal saline 1000ml 1,000 ML IV SCH (16:55)
[2018-04-16] MEDS: CefTRIAXone/D5W-Rocephin 1gm 50 ML IV SCH (17:01)
[2018-04-16] MEDS ORDERED: dextrose 50%-water 50ml dispensing syringe IV PRN ×2 (17:05)
[2018-04-16] MEDS ORDERED: MESSAGE TO PHARMACY PO ONE (17:05)
[2018-04-16] MEDS ORDERED: glucagon, human recombinant 1mg kit SUBCUT PRN (17:05)
[2018-04-16] MEDS ORDERED: dextrose ORAL solution 15 GM/59 ML bottle PO PRN ×2 (17:05)
[2018-04-16] MEDS ORDERED: insulin Lispro (HumaLOG) vial - multi-dose SQ SCH (17:05)
[2018-04-16 20:00] VITALS: BP 106/55
[2018-04-16] MEDS: insulin glargine (Lantus) pen - multi-dose SQ SCH (21:00)
[2018-04-16] MEDS: atorvastatin 20mg tablet PO SCH (21:04)
[2018-04-16] MEDS: traMADol 50MG tablet PO PRN (21:07)
[2018-04-16] MEDS: diatr meglu/diatrizoate 30ml oral sol.-(3 dose) bottle PO SCH (21:23)
[2018-04-16] MEDS: mirtazapine 15mg tablet PO SCH (21:25)
[2018-04-17] VITALS (12 sets, daily range): BP systolic 68–126; BP diastolic 34–91
[2018-04-17] MEDS: pregabalin 75mg capsule PO SCH ×3 (00:17→17:32)
[2018-04-17] MEDS: pregabalin 25mg capsule PO SCH ×3 (00:17→17:32)
[2018-04-17] MEDS: normal saline 1000ml 1,000 ML IV SCH ×2 (00:45→03:30)
[2018-04-17] MEDS: traMADol 50MG tablet PO PRN ×2 (03:20→21:05)
[2018-04-17] MEDS ORDERED: nitroGLYCERIN 0.4mg SUBLingual tab SL PRN (03:35)
[2018-04-17] MEDS ORDERED: normal saline 250ml IV soln 250 ML IV ONE (04:15)
[2018-04-17 04:25] LABS: ABG HCO3 21.3 mmol/L (22.0-26.0); ABG OXYGEN SATURATION 95.6 % (95-98); ABG PCO2 (T) 38.8 mmHg (32.0-45.0); ABG PH (T) 7.355 (7.350-7.450); ABG PO2 (T) 84.1 mmHg (83-108); ALLEN'S TEST Positive; FCOHb 0.2 % (0.5-1.5); FLOW 2 L/min; FMetHb 0.2 % (0.3-1.12); FO2Hb 95.2 % (94-100); PATIENT TEMPERATURE 36.5; TOTAL HEMOGLOBIN 12.8 G/dl (12.0-16.0)
[2018-04-17 04:28] LABS: BASOPHILS # (AUTO) 0.1 X10'3 (0-0.2); BASOPHILS % (AUTO) 1.7 % (0-1); EOSINOPHILS # (AUTO) 0.2 X10'3 (0-0.9); EOSINOPHILS % (AUTO) 3.7 % (0-6); HEMATOCRIT 36.4 % (35.0-45.0); HEMOGLOBIN 12.1 g/dl (12.0-16.0); LYMPHOCYTES # (AUTO) 3.1 X10'3 (1.1-4.8); LYMPHOCYTES % (AUTO) 48.3 % (21-51); MEAN CORPUSCULAR HEMOGLOBIN 29.2 PG (27.0-31.0); MEAN CORPUSCULAR HGB CONC 33.3 % (33.0-36.5); MEAN CORPUSCULAR VOLUME 87.8 FL (78-98); MEAN PLATELET VOLUME 9.2 FL (7.4-10.4); MONOCYTES # (AUTO) 0.5 X10'3 (0-0.9); MONOCYTES % (AUTO) 8.6 % (2-12); NEUTROPHILS # (AUTO) 2.4 X10'3 (1.8-7.7); NEUTROPHILS % (AUTO) 37.7 % (42-75); PLATELET COUNT 159 X10'3 (140-440); RED BLOOD COUNT 4.15 X10'6 (4.20-5.60); RED CELL DISTRIBUTION WIDTH 16.2 % (11.5-14.5); WHITE BLOOD COUNT 6.4 X10'3 (4.5-11.0)
[2018-04-17] MEDS: pantoprazole 40 MG vial IV SCH (04:32)
[2018-04-17 04:42] LABS: ALANINE AMINOTRANSFERASE 22 U/L (12-78); ALBUMIN 2.8 G/DL (3.4-5.0); ALKALINE PHOSPHATASE 89 IU/L (46-116); ANION GAP 10 (8-16); ASPARTATE AMINO TRANSFERASE 33 U/L (10-37); BILIRUBIN,TOTAL 0.3 MG/DL (0.1-1.0); BLOOD UREA NITROGEN 8 MG/DL (7-18); BUN/CREATININE RATIO 6.6 (6.6-38.0); CALCIUM 8.5 MG/DL (8.5-10.1); CHLORIDE 107 MMOL/L (99-107); CREATININE 1.22 MG/DL (0.40-0.90); GLUCOSE 113 MG/DL (70-104); SODIUM 142 MMOL/L (135-145); TOTAL CARBON DIOXIDE 25.4 MMOL/L (24-32); TOTAL PROTEIN 5.7 G/DL (6.4-8.2); eGFR 53 ML/MIN
[2018-04-17 04:50] LABS: PHOSPHORUS 4.5 MG/DL (2.3-4.5); TROPONIN I 0.05 NG/ML (0.0-0.05)
[2018-04-17 04:52] LABS: INR 1.1 INR; PARTIAL THROMBOPLASTIN TIME 28 SECONDS (22-32); PROTHROMBIN TIME 11.2 SECONDS (9.0-12.0)
[2018-04-17] MEDS: diatr meglu/diatrizoate 30ml oral sol.-(3 dose) bottle PO SCH ×2 (07:18→09:21)
[2018-04-17] MEDS: CefTRIAXone/D5W-Rocephin 1gm 50 ML IV SCH (07:22)
[2018-04-17] MEDS: potassium Cl 20 mEq SR tablet PO SCH ×2 (08:00→20:21)
[2018-04-17] MEDS: pantoprazole 40mg Tablet.DR PO SCH ×2 (08:00→20:22)
[2018-04-17] MEDS: hydroxychloroquine 200mg tablet PO SCH (08:00)
[2018-04-17] MEDS ORDERED: iohexol 300mg/ml 100ml inj. ONE (08:57)
[2018-04-17] MEDS: aspirin 81mg tab.chew PO SCH (11:17)
[2018-04-17] MEDS: metoprolol tartrate 25mg tablet PO SCH ×2 (11:19→20:22)
[2018-04-17] MEDS: clopidogrel 75mg tablet PO SCH (11:19)
[2018-04-17] MEDS: duloxetine 20mg capsule.DR PO SCH (11:19)
[2018-04-17] MEDS: levoTHYROXINE 88mcg tablet PO SCH (11:19)
[2018-04-17] MEDS ORDERED: LIDOCAINE VISCOUS PO PRN ×9 (11:20→11:30)
[2018-04-17] MEDS ORDERED: ALUM HYDROX PO PRN ×9 (11:20→11:30)
[2018-04-17] MEDS ORDERED: MAG PO PRN ×9 (11:20→11:30)
[2018-04-17] MEDS ORDERED: SIMETH PO PRN ×9 (11:20→11:30)
[2018-04-17] MEDS ORDERED: [UNRECOGNIZED DRUG - OTHER] PO PRN ×3 (11:20)
[2018-04-17] MEDS: thiamine 100mg tablet PO SCH ×2 (11:20→20:22)
[2018-04-17] MEDS: heparin, porcine 5000 units/ml vial SQ SCH ×2 (11:20→20:23)
[2018-04-17] MEDS: folic acid 0.4mg tablet PO SCH (11:20)
[2018-04-17] MEDS: magnesium oxide 400mg tablet PO SCH ×2 (11:21→20:21)
[2018-04-17] MEDS ORDERED: [UNRECOGNIZED DRUG - OTHER] PO PRN ×6 (11:26→11:30)
[2018-04-17] MEDS: isosorbide mononitrate 30mg tab.SR.24H PO SCH (11:28)
[2018-04-17] MEDS: [UNRECOGNIZED DRUG - OTHER] PO PRN ×3 (12:09)
[2018-04-17] MEDS: ALUM HYDROX PO PRN ×3 (12:09)
[2018-04-17] MEDS: SIMETH PO PRN ×3 (12:09)
[2018-04-17] MEDS: LIDOCAINE VISCOUS PO PRN ×3 (12:09)
[2018-04-17] MEDS: MAG PO PRN ×3 (12:09)
[2018-04-17] MEDS: dextrose 5%-1/2 normal saline 1,000 ML IV SCH (13:08)
[2018-04-17] MEDS: sucralfate 1gm/10ml UD suspension PO SCH ×2 (17:31→20:24)
[2018-04-17] MEDS: mirtazapine 15mg tablet PO SCH (20:22)
[2018-04-17] MEDS: atorvastatin 20mg tablet PO SCH (20:24)
[2018-04-17] MEDS: insulin glargine (Lantus) pen - multi-dose SQ SCH (21:00)
[2018-04-18] VITALS (11 sets, daily range): BP systolic 110–146; BP diastolic 54–78
[2018-04-18] MEDS: pregabalin 75mg capsule PO SCH ×4 (00:35→21:10)
[2018-04-18] MEDS: pregabalin 25mg capsule PO SCH ×4 (00:35→21:10)
[2018-04-18] MEDS: [UNRECOGNIZED DRUG - OTHER] PO PRN ×3 (00:54)
[2018-04-18] MEDS: SIMETH PO PRN ×3 (00:54)
[2018-04-18] MEDS: MAG PO PRN ×3 (00:54)
[2018-04-18] MEDS: LIDOCAINE VISCOUS PO PRN ×3 (00:54)
[2018-04-18] MEDS: ALUM HYDROX PO PRN ×3 (00:54)
[2018-04-18] MEDS: dextrose 5%-1/2 normal saline 1,000 ML IV SCH (02:27)
[2018-04-18] MEDS: LORazepam 0.5 MG tablet PO PRN ×2 (02:27→08:00)
[2018-04-18] MEDS: morphine 2 MG/ML inj. syringe IV PRN ×3 (02:28→21:09)
[2018-04-18] MEDS: pantoprazole 40 MG vial IV SCH (03:15)
[2018-04-18 05:45] LABS: BASOPHILS % (AUTO) 0.7 % (0-1); EOSINOPHILS # (AUTO) 0.2 X10'3 (0-0.9); EOSINOPHILS % (AUTO) 5.5 % (0-6); HEMATOCRIT 38.2 % (35.0-45.0); HEMOGLOBIN 12.8 g/dl (12.0-16.0); LYMPHOCYTES # (AUTO) 1.5 X10'3 (1.1-4.8); LYMPHOCYTES % (AUTO) 34.2 % (21-51); MEAN CORPUSCULAR HEMOGLOBIN 29.3 PG (27.0-31.0); MEAN CORPUSCULAR HGB CONC 33.4 % (33.0-36.5); MEAN CORPUSCULAR VOLUME 87.7 FL (78-98); MONOCYTES # (AUTO) 0.5 X10'3 (0-0.9); MONOCYTES % (AUTO) 10.9 % (2-12); NEUTROPHILS # (AUTO) 2.2 X10'3 (1.8-7.7); NEUTROPHILS % (AUTO) 48.7 % (42-75); PLATELET COUNT 146 X10'3 (140-440); RED BLOOD COUNT 4.36 X10'6 (4.20-5.60); RED CELL DISTRIBUTION WIDTH 16.2 % (11.5-14.5); WHITE BLOOD COUNT 4.4 X10'3 (4.5-11.0)
[2018-04-18 06:16] LABS: ALANINE AMINOTRANSFERASE 25 U/L (12-78); ALBUMIN 3.2 G/DL (3.4-5.0); ALBUMIN/GLOBULIN RATIO 1.1 (1.1-1.5); ALKALINE PHOSPHATASE 94 IU/L (46-116); ANION GAP 8 (8-16); ASPARTATE AMINO TRANSFERASE 25 U/L (10-37); BILIRUBIN,TOTAL 0.3 MG/DL (0.1-1.0); BLOOD UREA NITROGEN 4 MG/DL (7-18); BUN/CREATININE RATIO 3.5 (6.6-38.0); CALCIUM 9.1 MG/DL (8.5-10.1); CHLORIDE 108 MMOL/L (99-107); CREATININE 1.14 MG/DL (0.40-0.90); GLUCOSE 100 MG/DL (70-104); POTASSIUM 4.3 MMOL/L (3.5-5.1); SODIUM 143 MMOL/L (135-145); TOTAL CARBON DIOXIDE 27.1 MMOL/L (24-32); TOTAL PROTEIN 6.2 G/DL (6.4-8.2); eGFR 57 ML/MIN
[2018-04-18] MEDS: sucralfate 1gm/10ml UD suspension PO SCH ×4 (07:39→21:09)
[2018-04-18] MEDS: CefTRIAXone/D5W-Rocephin 1gm 50 ML IV SCH (07:39)
[2018-04-18] MEDS: potassium Cl 20 mEq SR tablet PO SCH ×2 (07:40→21:08)
[2018-04-18] MEDS: heparin, porcine 5000 units/ml vial SQ SCH ×2 (07:40→21:09)
[2018-04-18] MEDS: magnesium oxide 400mg tablet PO SCH ×2 (07:40→21:08)
[2018-04-18] MEDS: clopidogrel 75mg tablet PO SCH (07:40)
[2018-04-18] MEDS: duloxetine 20mg capsule.DR PO SCH (07:40)
[2018-04-18] MEDS: pantoprazole 40mg Tablet.DR PO SCH ×2 (07:41→21:08)
[2018-04-18] MEDS: hydroxychloroquine 200mg tablet PO SCH (07:41)
[2018-04-18] MEDS: isosorbide mononitrate 30mg tab.SR.24H PO SCH (07:41)
[2018-04-18] MEDS: aspirin 81mg tab.chew PO SCH (07:41)
[2018-04-18] MEDS: folic acid 0.4mg tablet PO SCH (07:42)
[2018-04-18] MEDS: levoTHYROXINE 88mcg tablet PO SCH (07:42)
[2018-04-18] MEDS: thiamine 100mg tablet PO SCH ×2 (07:42→21:08)
[2018-04-18] MEDS: metoprolol tartrate 25mg tablet PO SCH ×2 (07:42→21:08)
[2018-04-18] MEDS ORDERED: LIDOcaine Viscous 15ml cup ONE (11:58)
[2018-04-18] MEDS ORDERED: fentaNYL/PF 50MCG/1 ML 2ML syringe ONE (11:58)
[2018-04-18] MEDS ORDERED: MIDAZolam 5mg/5ml vial ONE (11:58)
[2018-04-18] MEDS: traMADol 50MG tablet PO PRN (19:13)
[2018-04-18] MEDS: insulin glargine (Lantus) pen - multi-dose SQ SCH (21:00)
[2018-04-18] MEDS: atorvastatin 20mg tablet PO SCH (21:08)
[2018-04-18] MEDS: mirtazapine 15mg tablet PO SCH (21:09)
[2018-04-19] MEDS: pantoprazole 40 MG vial IV SCH (00:19)
[2018-04-19] MEDS: traMADol 50MG tablet PO PRN ×2 (01:22→11:10)
[2018-04-19 06:22] LABS: ALANINE AMINOTRANSFERASE 22 U/L (12-78); ALBUMIN 3.3 G/DL (3.4-5.0); ALBUMIN/GLOBULIN RATIO 0.9 (1.1-1.5); ALKALINE PHOSPHATASE 116 IU/L (46-116); ANION GAP 13 (8-16); ASPARTATE AMINO TRANSFERASE 40 U/L (10-37); BILIRUBIN,TOTAL 0.3 MG/DL (0.1-1.0); BLOOD UREA NITROGEN 3 MG/DL (7-18); BUN/CREATININE RATIO 2.9 (6.6-38.0); CALCIUM 9.4 MG/DL (8.5-10.1); CHLORIDE 103 MMOL/L (99-107); CREATININE 1.02 MG/DL (0.40-0.90); GLUCOSE 89 MG/DL (70-104); POTASSIUM 4.4 MMOL/L (3.5-5.1); SODIUM 139 MMOL/L (135-145); TOTAL CARBON DIOXIDE 23.5 MMOL/L (24-32); TOTAL PROTEIN 6.9 G/DL (6.4-8.2); eGFR 65 ML/MIN
[2018-04-19] MEDS: CefTRIAXone/D5W-Rocephin 1gm 50 ML IV SCH (07:25)
[2018-04-19] MEDS: magnesium oxide 400mg tablet PO SCH ×2 (07:25→21:24)
[2018-04-19] MEDS: heparin, porcine 5000 units/ml vial SQ SCH ×2 (07:26→21:23)
[2018-04-19] MEDS: potassium Cl 20 mEq SR tablet PO SCH ×2 (07:27→21:23)
[2018-04-19] MEDS: hydroxychloroquine 200mg tablet PO SCH (07:27)
[2018-04-19] MEDS: duloxetine 20mg capsule.DR PO SCH (07:27)
[2018-04-19] MEDS: sucralfate 1gm/10ml UD suspension PO SCH ×4 (07:27→21:23)
[2018-04-19] MEDS: metoprolol tartrate 25mg tablet PO SCH ×2 (07:27→21:23)
[2018-04-19] MEDS: folic acid 0.4mg tablet PO SCH (07:27)
[2018-04-19] MEDS: aspirin 81mg tab.chew PO SCH (07:27)
[2018-04-19] MEDS: pantoprazole 40mg Tablet.DR PO SCH ×2 (07:27→21:24)
[2018-04-19] MEDS: thiamine 100mg tablet PO SCH ×2 (07:28→21:23)
[2018-04-19] MEDS: levoTHYROXINE 88mcg tablet PO SCH (07:28)
[2018-04-19] MEDS: isosorbide mononitrate 30mg tab.SR.24H PO SCH (07:28)
[2018-04-19] MEDS: clopidogrel 75mg tablet PO SCH (07:28)
[2018-04-19 07:43] LABS: BASOPHILS % (AUTO) 0 % (0-1); EOSINOPHILS # (AUTO) 0.1 X10'3 (0-0.9); EOSINOPHILS % (AUTO) 1.5 % (0-6); HEMATOCRIT 43.3 % (35.0-45.0); HEMOGLOBIN 14.3 g/dl (12.0-16.0); LYMPHOCYTES % (AUTO) 12.8 % (21-51); MEAN CORPUSCULAR HEMOGLOBIN 29.3 PG (27.0-31.0); MEAN CORPUSCULAR HGB CONC 33.1 % (33.0-36.5); MEAN CORPUSCULAR VOLUME 88.5 FL (78-98); MEAN PLATELET VOLUME 9.6 FL (7.4-10.4); MONOCYTES # (AUTO) 0.3 X10'3 (0-0.9); MONOCYTES % (AUTO) 3.4 % (2-12); NEUTROPHILS # (AUTO) 6.4 X10'3 (1.8-7.7); NEUTROPHILS % (AUTO) 82.3 % (42-75); PLATELET COUNT 145 X10'3 (140-440); RED BLOOD COUNT 4.89 X10'6 (4.20-5.60); RED CELL DISTRIBUTION WIDTH 16.1 % (11.5-14.5); WHITE BLOOD COUNT 7.8 X10'3 (4.5-11.0)
[2018-04-19 07:46] VITALS: BP 149/87
[2018-04-19] MEDS: pregabalin 25mg capsule PO SCH ×2 (08:00→16:00)
[2018-04-19] MEDS: pregabalin 75mg capsule PO SCH ×2 (08:00→16:00)
[2018-04-19 12:00] VITALS: BP 120/71
[2018-04-19 20:00] VITALS: BP 118/73
[2018-04-19] MEDS: insulin glargine (Lantus) pen - multi-dose SQ SCH (21:00)
[2018-04-19] MEDS: mirtazapine 15mg tablet PO SCH (21:23)
[2018-04-19] MEDS: lactobacillus rhamnosus 10,000 MMU CELLS/CAPSULE PO SCH (21:23)
[2018-04-19] MEDS: atorvastatin 20mg tablet PO SCH (21:24)
[2018-04-19] MEDS ORDERED: morphine 2 MG/ML inj. syringe IV PRN (22:10)
[2018-04-20 00:45] VITALS: BP_SYST 106; BP_SYST 118; BP_DIAS 73; BP_DIAS 76
[2018-04-20 05:28] LABS: BASOPHILS % (AUTO) 0.2 % (0-1); EOSINOPHILS # (AUTO) 0.2 X10'3 (0-0.9); EOSINOPHILS % (AUTO) 3.7 % (0-6); HEMATOCRIT 41.7 % (35.0-45.0); HEMOGLOBIN 13.8 g/dl (12.0-16.0); LYMPHOCYTES # (AUTO) 1.6 X10'3 (1.1-4.8); LYMPHOCYTES % (AUTO) 26.2 % (21-51); MEAN CORPUSCULAR HEMOGLOBIN 29.3 PG (27.0-31.0); MEAN CORPUSCULAR HGB CONC 33.1 % (33.0-36.5); MEAN CORPUSCULAR VOLUME 88.4 FL (78-98); MEAN PLATELET VOLUME 9.9 FL (7.4-10.4); MONOCYTES # (AUTO) 0.4 X10'3 (0-0.9); MONOCYTES % (AUTO) 6.4 % (2-12); NEUTROPHILS # (AUTO) 3.8 X10'3 (1.8-7.7); NEUTROPHILS % (AUTO) 63.5 % (42-75); PLATELET COUNT 156 X10'3 (140-440); RED BLOOD COUNT 4.72 X10'6 (4.20-5.60); RED CELL DISTRIBUTION WIDTH 16.1 % (11.5-14.5); WHITE BLOOD COUNT 5.9 X10'3 (4.5-11.0)
[2018-04-20 06:00] LABS: ALANINE AMINOTRANSFERASE 22 U/L (12-78); ALBUMIN 3.2 G/DL (3.4-5.0); ALBUMIN/GLOBULIN RATIO 0.9 (1.1-1.5); ALKALINE PHOSPHATASE 100 IU/L (46-116); ANION GAP 4 (8-16); ASPARTATE AMINO TRANSFERASE 24 U/L (10-37); BILIRUBIN,TOTAL 0.5 MG/DL (0.1-1.0); BLOOD UREA NITROGEN 3 MG/DL (7-18); BUN/CREATININE RATIO 2.7 (6.6-38.0); CALCIUM 9.4 MG/DL (8.5-10.1); CHLORIDE 105 MMOL/L (99-107); CREATININE 1.13 MG/DL (0.40-0.90); GLUCOSE 102 MG/DL (70-104); POTASSIUM 3.9 MMOL/L (3.5-5.1); SODIUM 140 MMOL/L (135-145); TOTAL PROTEIN 6.7 G/DL (6.4-8.2); eGFR 58 ML/MIN
[2018-04-20 06:49] VITALS: BP 149/92
[2018-04-20] MEDS: CefTRIAXone/D5W-Rocephin 1gm 50 ML IV SCH (07:16)
[2018-04-20] MEDS: lactobacillus rhamnosus 10,000 MMU CELLS/CAPSULE PO SCH (07:17)
[2018-04-20] MEDS: folic acid 0.4mg tablet PO SCH (07:17)
[2018-04-20] MEDS: magnesium oxide 400mg tablet PO SCH (07:17)
[2018-04-20] MEDS: duloxetine 20mg capsule.DR PO SCH (07:17)
[2018-04-20] MEDS: aspirin 81mg tab.chew PO SCH (07:17)
[2018-04-20] MEDS: levoTHYROXINE 88mcg tablet PO SCH (07:17)
[2018-04-20] MEDS: isosorbide mononitrate 30mg tab.SR.24H PO SCH (07:17)
[2018-04-20] MEDS: sucralfate 1gm/10ml UD suspension PO SCH ×3 (07:18→17:15)
[2018-04-20] MEDS: clopidogrel 75mg tablet PO SCH (07:18)
[2018-04-20] MEDS: metoprolol tartrate 25mg tablet PO SCH (07:21)
[2018-04-20] MEDS: potassium Cl 20 mEq SR tablet PO SCH (07:21)
[2018-04-20] MEDS: thiamine 100mg tablet PO SCH (07:21)
[2018-04-20] MEDS: pantoprazole 40mg Tablet.DR PO SCH (07:21)
[2018-04-20] MEDS: traMADol 50MG tablet PO PRN (07:21)
[2018-04-20] MEDS: heparin, porcine 5000 units/ml vial SQ SCH (07:23)
[2018-04-20] MEDS: pregabalin 25mg capsule PO SCH ×3 (07:34→16:00)
[2018-04-20] MEDS: pregabalin 75mg capsule PO SCH ×3 (07:34→16:00)
[2018-04-20] MEDS: hydroxychloroquine 200mg tablet PO SCH (10:25)
[2018-04-20 11:58] VITALS: BP 117/77
[2018-05-14] MEDS ORDERED: TRAM50TA2 PO (19:25)
== END 2018-04-20 17:54 | disposition home or self-care (01) | DRG 392 ==
LOC: ER 00:14 → ED HOLD 06:00 → OBSVTOIN 06:00 → SUR 3N 09:11
PROVIDERS: ADMIT Internal Medicine; ATTEND Family Medicine
PROC: 0DB98ZX Excision of Duodenum, Via Natural or Artificial Opening Endoscopic, Diagnostic (ICD-10-PCS; principal; 2018-04-18)
PROC: 0DB78ZX Excision of Stomach, Pylorus, Via Natural or Artificial Opening Endoscopic, Diagnostic (ICD-10-PCS; 2018-04-18)
PROC: 0DB48ZX Excision of Esophagogastric Junction, Via Natural or Artificial Opening Endoscopic, Diagnostic (ICD-10-PCS; 2018-04-18)
PROC: 0D748ZZ Dilation of Esophagogastric Junction, Via Natural or Artificial Opening Endoscopic (ICD-10-PCS; 2018-04-18)
DX: K22.2 Esophageal obstruction (principal); M87.851 Other osteonecrosis, right femur; I50.22 Chronic systolic (congestive) heart failure; E78.00 Pure hypercholesterolemia, unspecified; I11.0 Hypertensive heart disease with heart failure; E11.51 Type 2 diabetes mellitus with diabetic peripheral angiopathy without gangrene; J44.9 Chronic obstructive pulmonary disease, unspecified; M79.1 Myalgia; E11.649 Type 2 diabetes mellitus with hypoglycemia without coma; K52.9 Noninfective gastroenteritis and colitis, unspecified; E86.0 Dehydration; I65.21 Occlusion and stenosis of right carotid artery; K29.70 Gastritis, unspecified, without bleeding; K74.60 Unspecified cirrhosis of liver; G89.4 Chronic pain syndrome; K80.20 Calculus of gallbladder without cholecystitis without obstruction; E11.42 Type 2 diabetes mellitus with diabetic polyneuropathy; Z96.642 Presence of left artificial hip joint; Z90.49 Acquired absence of other specified parts of digestive tract; Z90.710 Acquired absence of both cervix and uterus; Z95.5 Presence of coronary angioplasty implant and graft; Z79.82 Long term (current) use of aspirin; Z88.6 Allergy status to analgesic agent; Z85.3 Personal history of malignant neoplasm of breast; Z82.49 Family history of ischemic heart disease and other diseases of the circulatory system
CPT/HCPCS: 36415; 36600; 43239; 45380; 70544; 70547; 70551; 71045; 73502; 74177; 80048; 80053; 81001; 82803; 82948; 83605; 83690; 83880; 84100; 84145; 84484; 85018; 85025; 85610; 85730; 87070; 87088; 90732; 93005; 93880; 97116; 97161; 97530; 99153; A4620; A6212; C9113; G0500; J0696; J1644; J1815; J2250; J2270; J2405; J3010; J3490; J7030; Q9963; Q9967

== ENCOUNTER 2018-04-23 17:39 | Emergency (ER) | payer MEDICARE, OTHER ==
[~2018-04-23] VITALS: Ht 167.6 cm; Wt 95.5 kg
[~2018-04-23 17:39] MED LIST changes: -AZIT-63 PO; -NITR100C6 PO; -ONDA4TAB9 SL; -POTA20PA40; -POTA20TA19 PO
[2018-04-23 18:09] LABS: BASOPHILS % (AUTO) 0.7 % (0-1); EOSINOPHILS # (AUTO) 0.2 X10'3 (0-0.9); EOSINOPHILS % (AUTO) 3.5 % (0-6); HEMATOCRIT 48.5 % (35.0-45.0); HEMOGLOBIN 15.8 g/dl (12.0-16.0); LYMPHOCYTES # (AUTO) 1.9 X10'3 (1.1-4.8); LYMPHOCYTES % (AUTO) 32.2 % (21-51); MEAN CORPUSCULAR HEMOGLOBIN 28.5 PG (27.0-31.0); MEAN CORPUSCULAR HGB CONC 32.6 % (33.0-36.5); MEAN CORPUSCULAR VOLUME 87.5 FL (78-98); MEAN PLATELET VOLUME 8.9 FL (7.4-10.4); MONOCYTES # (AUTO) 0.5 X10'3 (0-0.9); MONOCYTES % (AUTO) 8.1 % (2-12); NEUTROPHILS # (AUTO) 3.2 X10'3 (1.8-7.7); NEUTROPHILS % (AUTO) 55.5 % (42-75); PLATELET COUNT 261 X10'3 (140-440); RED BLOOD COUNT 5.55 X10'6 (4.20-5.60); RED CELL DISTRIBUTION WIDTH 16.1 % (11.5-14.5); WHITE BLOOD COUNT 5.8 X10'3 (4.5-11.0)
[2018-04-23 18:18] LABS: INR 1.1 INR; PROTHROMBIN TIME 10.9 SECONDS (9.0-12.0)
[2018-04-23 18:26] LABS: ALANINE AMINOTRANSFERASE 22 U/L (12-78); ALBUMIN 3.7 G/DL (3.4-5.0); ALBUMIN/GLOBULIN RATIO 0.9 (1.1-1.5); ALKALINE PHOSPHATASE 118 IU/L (46-116); ANION GAP 15 (8-16); ASPARTATE AMINO TRANSFERASE 29 U/L (10-37); BILIRUBIN,TOTAL 0.3 MG/DL (0.1-1.0); BLOOD UREA NITROGEN 9 MG/DL (7-18); BUN/CREATININE RATIO 5.9 (6.6-38.0); CHLORIDE 100 MMOL/L (99-107); CREATININE 1.52 MG/DL (0.40-0.90); GLUCOSE 138 MG/DL (70-104); POTASSIUM 3.4 MMOL/L (3.5-5.1); SODIUM 137 MMOL/L (135-145); TOTAL CARBON DIOXIDE 22.1 MMOL/L (24-32); TOTAL PROTEIN 7.6 G/DL (6.4-8.2); eGFR 41 ML/MIN
[2018-04-23] MEDS ORDERED: ondansetron/PF 4mg/2ml inj IV ONE (18:30)
[2018-04-23] MEDS ORDERED: normal saline 1000ML IV soln IVB ONE (18:30)
[2018-04-23] MEDS ORDERED: morphine 4 MG/ML inj SYRINge IV PRN (18:30)
[2018-04-23 18:48] LABS: LIPASE 263 U/L (73-393)
[2018-04-23] MEDS ORDERED: iohexol 300mg/ml 100ml inj. ONE (19:00)
[2018-04-23] MEDS ORDERED: PHE12.5T PO (20:26)
[2018-04-23 20:36] VITALS: BP 174/76
== END 2018-04-23 20:51 | disposition home or self-care (01) ==
LOC: ER 17:40
DX: R10.84 Generalized abdominal pain (principal); R11.2 Nausea with vomiting, unspecified; E11.42 Type 2 diabetes mellitus with diabetic polyneuropathy; I11.0 Hypertensive heart disease with heart failure; I50.9 Heart failure, unspecified; J44.9 Chronic obstructive pulmonary disease, unspecified; G89.29 Other chronic pain; Z90.710 Acquired absence of both cervix and uterus; Z86.73 Personal history of transient ischemic attack (TIA), and cerebral infarction without residual deficits; Z90.89 Acquired absence of other organs; Z88.6 Allergy status to analgesic agent; Z79.82 Long term (current) use of aspirin
CPT/HCPCS: 36415; 74176; 80053; 82948; 83690; 85025; 85610; 93005; 96361; 96374; 96375; 99285; J2270; J2405; J7030; Q9967

== ENCOUNTER 2018-04-29 20:52 | Inpatient (IN) | payer MEDICARE, OTHER ==
[~2018-04-29] VITALS: Ht 167.6 cm; Wt 89.9 kg
[~2018-04-29 20:52] MED LIST changes: +PHE12.5T PO
[2018-04-29] MEDS ORDERED: nitroGLYCERIN 0.4mg SUBLingual tab SL PRN ×2 (20:55→22:50)
[2018-04-29] MEDS ORDERED: aspirin 81mg tab.chew PO ONE ×2 (20:55→21:55)
[2018-04-29] MEDS ORDERED: temazepam 15mg capsule PO PRN (21:00)
[2018-04-29 21:20] LABS: BASOPHILS # (AUTO) 0.1 X10'3 (0-0.2); BASOPHILS % (AUTO) 0.9 % (0-1); EOSINOPHILS # (AUTO) 0.4 X10'3 (0-0.9); HEMATOCRIT 44.2 % (35.0-45.0); HEMOGLOBIN 14.8 g/dl (12.0-16.0); LYMPHOCYTES # (AUTO) 1.9 X10'3 (1.1-4.8); LYMPHOCYTES % (AUTO) 25.9 % (21-51); MEAN CORPUSCULAR HEMOGLOBIN 28.9 PG (27.0-31.0); MEAN CORPUSCULAR HGB CONC 33.6 % (33.0-36.5); MEAN PLATELET VOLUME 8.6 FL (7.4-10.4); MONOCYTES # (AUTO) 0.6 X10'3 (0-0.9); NEUTROPHILS # (AUTO) 4.2 X10'3 (1.8-7.7); NEUTROPHILS % (AUTO) 59.2 % (42-75); PLATELET COUNT 259 X10'3 (140-440); RED BLOOD COUNT 5.14 X10'6 (4.20-5.60); RED CELL DISTRIBUTION WIDTH 15.5 % (11.5-14.5); WHITE BLOOD COUNT 7.2 X10'3 (4.5-11.0)
[2018-04-29] MEDS ORDERED: ondansetron/PF 4mg/2ml inj IV ONE (21:30)
[2018-04-29] MEDS ORDERED: morphine 4 MG/ML inj SYRINge IV ONE (21:30)
[2018-04-29 21:37] LABS: ALANINE AMINOTRANSFERASE 31 U/L (12-78); ALBUMIN 3.7 G/DL (3.4-5.0); ALKALINE PHOSPHATASE 115 IU/L (46-116); ANION GAP 16 (8-16); ASPARTATE AMINO TRANSFERASE 30 U/L (10-37); BILIRUBIN,TOTAL 0.4 MG/DL (0.1-1.0); BLOOD UREA NITROGEN 8 MG/DL (7-18); BUN/CREATININE RATIO 6.1 (6.6-38.0); CALCIUM 9.6 MG/DL (8.5-10.1); CHLORIDE 101 MMOL/L (99-107); CREATININE 1.31 MG/DL (0.40-0.90); GLUCOSE 103 MG/DL (70-104); POTASSIUM 3.5 MMOL/L (3.5-5.1); SODIUM 139 MMOL/L (135-145); TOTAL CARBON DIOXIDE 22.3 MMOL/L (24-32); TOTAL PROTEIN 7.3 G/DL (6.4-8.2); eGFR 49 ML/MIN
[2018-04-29 21:44] LABS: MAGNESIUM 1.7 MG/DL (1.5-2.4)
[2018-04-29] MEDS ORDERED: ondansetron/PF 4mg/2ml inj IV PRN (22:45)
[2018-04-29] MEDS ORDERED: morphine 2 MG/ML inj. syringe IV PRN ×2 (22:45)
[2018-04-29] MEDS ORDERED: mag hydrox/Alum hydrox/simeth 30ml oral suspension PO PRN (22:45)
[2018-04-29] MEDS ORDERED: traMADol 50MG tablet PO PRN (22:45)
[2018-04-29] MEDS ORDERED: acetaminophen 650mg rectal suppository RC PRN (22:45)
[2018-04-29] MEDS ORDERED: bisacodyl 10mg suppository rectal RC PRN (22:45)
[2018-04-29] MEDS ORDERED: diphenhydrAMINE 25mg capsule PO PRN (22:45)
[2018-04-29] MEDS ORDERED: metoclopramide 5 mg/ml inj IV PRN (22:45)
[2018-04-29] MEDS ORDERED: HYDROcodone/acetaminophen 5mg/325mg tablet PO PRN (22:45)
[2018-04-29] MEDS ORDERED: albuterol 2.5 MG/3 ML nebule NEB SCH (22:45)
[2018-04-29] MEDS ORDERED: acetaminophen 325mg tablet PO PRN ×2 (22:45)
[2018-04-29] MEDS ORDERED: ondansetron 4mg rapidly disintigrating tab PO PRN (22:45)
[2018-04-29] MEDS ORDERED: magnesium hydroxide 30ml (MOM) UD suspension PO PRN (22:45)
[2018-04-29] MEDS ORDERED: diphenhydrAMINE 50 mg/ml inj IV PRN (22:45)
[2018-04-29] MEDS ORDERED: HYDROcodone/acetaminophen 10/325mg tab PO PRN (22:45)
[2018-04-29] MEDS ORDERED: glucagon, human recombinant 1mg kit SUBCUT PRN (22:50)
[2018-04-29] MEDS ORDERED: MESSAGE TO PHARMACY PO ONE (22:50)
[2018-04-29] MEDS ORDERED: dextrose ORAL solution 15 GM/59 ML bottle PO PRN ×2 (22:50)
[2018-04-29] MEDS ORDERED: CAFFEINE CITRATE 60 MG/3 ML injection vial IV PRN (22:50)
[2018-04-29] MEDS ORDERED: regadenoson 0.4mg/5ml syringe IV ONE ×2 (22:50→23:00)
[2018-04-29] MEDS ORDERED: metoprolol tartrate 1mg/ml inj IV PRN (22:50)
[2018-04-29] MEDS ORDERED: insulin Lispro (HumaLOG) vial - multi-dose SQ SCH (22:50)
[2018-04-29] MEDS ORDERED: dextrose 50%-water 50ml dispensing syringe IV PRN ×2 (22:50)
[2018-04-29 23:07] LABS: LIPASE 284 U/L (73-393)
[2018-04-29 23:10] LABS: D-DIMER 0.73 MG/L FEU (0-0.50)
[2018-04-29 23:35] VITALS: BP 178/88
[2018-04-30] MEDS: pregabalin 25mg capsule PO SCH ×3 (01:20→16:52)
[2018-04-30 03:05] LABS: BASOPHILS % (AUTO) 0.6 % (0-1); EOSINOPHILS # (AUTO) 0.4 X10'3 (0-0.9); HEMATOCRIT 40.8 % (35.0-45.0); HEMOGLOBIN 13.6 g/dl (12.0-16.0); LYMPHOCYTES # (AUTO) 1.9 X10'3 (1.1-4.8); LYMPHOCYTES % (AUTO) 28.9 % (21-51); MEAN CORPUSCULAR HEMOGLOBIN 28.9 PG (27.0-31.0); MEAN CORPUSCULAR HGB CONC 33.3 % (33.0-36.5); MEAN CORPUSCULAR VOLUME 86.8 FL (78-98); MEAN PLATELET VOLUME 8.9 FL (7.4-10.4); MONOCYTES # (AUTO) 0.5 X10'3 (0-0.9); MONOCYTES % (AUTO) 7.8 % (2-12); NEUTROPHILS # (AUTO) 3.8 X10'3 (1.8-7.7); NEUTROPHILS % (AUTO) 56.7 % (42-75); PLATELET COUNT 229 X10'3 (140-440); RED CELL DISTRIBUTION WIDTH 15.3 % (11.5-14.5); WHITE BLOOD COUNT 6.7 X10'3 (4.5-11.0)
[2018-04-30 03:20] VITALS: BP 132/75
[2018-04-30 03:20] LABS: ALANINE AMINOTRANSFERASE 23 U/L (12-78); ALBUMIN 3.4 G/DL (3.4-5.0); ALBUMIN/GLOBULIN RATIO 1.1 (1.1-1.5); ALKALINE PHOSPHATASE 112 IU/L (46-116); ANION GAP 10 (8-16); ASPARTATE AMINO TRANSFERASE 29 U/L (10-37); BILIRUBIN,TOTAL 0.4 MG/DL (0.1-1.0); BLOOD UREA NITROGEN 8 MG/DL (7-18); BUN/CREATININE RATIO 6.5 (6.6-38.0); CALCIUM 9.1 MG/DL (8.5-10.1); CHLORIDE 102 MMOL/L (99-107); CREATININE 1.23 MG/DL (0.40-0.90); GLUCOSE 101 MG/DL (70-104); POTASSIUM 3.8 MMOL/L (3.5-5.1); SODIUM 138 MMOL/L (135-145); TOTAL CARBON DIOXIDE 26.4 MMOL/L (24-32); TOTAL PROTEIN 6.6 G/DL (6.4-8.2); eGFR 52 ML/MIN
[2018-04-30 07:00] VITALS: BP 134/81
[2018-04-30] MEDS ORDERED: hydroxychloroquine 200mg tablet PO SCH (08:00)
[2018-04-30] MEDS ORDERED: thiamine 100mg tablet PO SCH (08:00)
[2018-04-30] MEDS ORDERED: aspirin 81mg tab.chew PO SCH (08:00)
[2018-04-30] MEDS ORDERED: furosemide 10 MG/1 ML 10ml inj IV SCH (08:00)
[2018-04-30] MEDS ORDERED: levoTHYROXINE 88mcg tablet PO SCH (08:00)
[2018-04-30] MEDS ORDERED: duloxetine 20mg capsule.DR PO SCH (08:00)
[2018-04-30] MEDS ORDERED: calcium carbonate/vitamin D3 tablet PO SCH (08:00)
[2018-04-30] MEDS ORDERED: lactose-reduced food (Ensure Enlive) - 237ml bottle PO SCH (08:00)
[2018-04-30] MEDS ORDERED: docusate sod 100mg capsule PO SCH (08:00)
[2018-04-30] MEDS ORDERED: magnesium oxide 400mg tablet PO SCH (08:00)
[2018-04-30] MEDS ORDERED: heparin, porcine 5000 units/ml vial SQ SCH (08:00)
[2018-04-30] MEDS ORDERED: metoprolol tartrate 25mg tablet PO SCH (08:00)
[2018-04-30] MEDS ORDERED: docusate sod 250mg capsule PO SCH (08:00)
[2018-04-30] MEDS ORDERED: clopidogrel 75mg tablet PO SCH (08:00)
[2018-04-30] MEDS ORDERED: pantoprazole 40mg Tablet.DR PO SCH (08:00)
[2018-04-30] MEDS ORDERED: isosorbide mononitrate 30mg tab.SR.24H PO SCH (08:00)
[2018-04-30] MEDS ORDERED: pneumococcal 23-VAL P-sac vacc 25 mcg/0.5ml vial IMVAC ONE (10:00)
[2018-04-30 11:00] VITALS: BP 112/79
[2018-04-30] MEDS ORDERED: atorvastatin 20mg tablet PO SCH (21:00)
[2018-04-30] MEDS ORDERED: mirtazapine 15mg tablet PO SCH (21:00)
== END 2018-04-30 18:32 | disposition home or self-care (01) | DRG 205 ==
LOC: ER 20:53 → ED HOLD 22:44 → SUR 3N 23:29
PROVIDERS: ADMIT Family Medicine; ATTEND Family Medicine
PROC: CB121ZZ Planar Nuclear Medicine Imaging of Lungs and Bronchi using Technetium 99m (Tc-99m) (ICD-10-PCS; principal; 2018-04-30)
DX: M94.0 Chondrocostal junction syndrome [Tietze] (principal); I50.43 Acute on chronic combined systolic (congestive) and diastolic (congestive) heart failure; K21.9 Gastro-esophageal reflux disease without esophagitis; I25.10 Atherosclerotic heart disease of native coronary artery without angina pectoris; E11.42 Type 2 diabetes mellitus with diabetic polyneuropathy; E11.51 Type 2 diabetes mellitus with diabetic peripheral angiopathy without gangrene; E78.00 Pure hypercholesterolemia, unspecified; F41.9 Anxiety disorder, unspecified; M06.9 Rheumatoid arthritis, unspecified; I11.0 Hypertensive heart disease with heart failure; J44.9 Chronic obstructive pulmonary disease, unspecified; G89.29 Other chronic pain; Z90.710 Acquired absence of both cervix and uterus; Z90.49 Acquired absence of other specified parts of digestive tract; Z88.6 Allergy status to analgesic agent; Z88.8 Allergy status to other drugs, medicaments and biological substances; Z79.82 Long term (current) use of aspirin; Z79.4 Long term (current) use of insulin; Z79.899 Other long term (current) drug therapy; Z85.3 Personal history of malignant neoplasm of breast; Z86.73 Personal history of transient ischemic attack (TIA), and cerebral infarction without residual deficits; Z82.49 Family history of ischemic heart disease and other diseases of the circulatory system
CPT/HCPCS: 36415; 71045; 78582; 80053; 82948; 83036; 83690; 83735; 83880; 84484; 85025; 85379; 87070; 90732; 93005; 96374; 96375; 99285; A9539; A9540; J1644; J1940; J2270; J2405

== ENCOUNTER 2018-05-20 09:55 | Emergency (ER) | payer MEDICARE, OTHER ==
[~2018-05-20] VITALS: Ht 167.6 cm; Wt 77.3 kg
[~2018-05-20 09:55] MED LIST changes: -PHE12.5T PO
[2018-05-20 10:01] VITALS: BP 121/79
[2018-05-20 10:29] LABS: INR 1.1 INR; PROTHROMBIN TIME 11.5 SECONDS (9.0-12.0)
[2018-05-20 10:39] LABS: BASOPHILS % (AUTO) 0.2 % (0-1); EOSINOPHILS # (AUTO) 0.1 X10'3 (0-0.9); HEMATOCRIT 48.2 % (35.0-45.0); HEMOGLOBIN 15.9 g/dl (12.0-16.0); LYMPHOCYTES # (AUTO) 1.1 X10'3 (1.1-4.8); LYMPHOCYTES % (AUTO) 16.2 % (21-51); MEAN CORPUSCULAR HEMOGLOBIN 28.7 PG (27.0-31.0); MEAN CORPUSCULAR VOLUME 86.8 FL (78-98); MEAN PLATELET VOLUME 8.6 FL (7.4-10.4); MONOCYTES # (AUTO) 0.3 X10'3 (0-0.9); MONOCYTES % (AUTO) 4.7 % (2-12); NEUTROPHILS # (AUTO) 5.3 X10'3 (1.8-7.7); NEUTROPHILS % (AUTO) 77.9 % (42-75); PLATELET COUNT 278 X10'3 (140-440); RED BLOOD COUNT 5.55 X10'6 (4.20-5.60); RED CELL DISTRIBUTION WIDTH 15.4 % (11.5-14.5); WHITE BLOOD COUNT 6.8 X10'3 (4.5-11.0)
[2018-05-20 10:41] LABS: ALANINE AMINOTRANSFERASE 16 U/L (12-78); ALBUMIN 3.5 G/DL (3.4-5.0); ALBUMIN/GLOBULIN RATIO 0.9 (1.1-1.5); ALKALINE PHOSPHATASE 131 IU/L (46-116); ANION GAP 13 (8-16); ASPARTATE AMINO TRANSFERASE 25 U/L (10-37); BILIRUBIN,TOTAL 0.6 MG/DL (0.1-1.0); BLOOD UREA NITROGEN 9 MG/DL (7-18); BUN/CREATININE RATIO 7.6 (6.6-38.0); CALCIUM 9.6 MG/DL (8.5-10.1); CHLORIDE 101 MMOL/L (99-107); CREATININE 1.19 MG/DL (0.40-0.90); GLUCOSE 148 MG/DL (70-104); POTASSIUM 3.3 MMOL/L (3.5-5.1); SODIUM 141 MMOL/L (135-145); TOTAL CARBON DIOXIDE 26.7 MMOL/L (24-32); TOTAL PROTEIN 7.6 G/DL (6.4-8.2); eGFR 54 ML/MIN
[2018-05-20] MEDS ORDERED: PHE12.5T PO (11:07)
[2018-05-20] MEDS ORDERED: PANT-47 PO (11:07)
[2018-05-20] MEDS ORDERED: proMETHazine 25mg tablet PO ONE (11:10)
[2018-05-20] MEDS ORDERED: pantoprazole 40mg Tablet.DR PO ONE (11:10)
[2018-05-20] MEDS ORDERED: potassium 10mEq/100ml NS w/LIDOcaine (10mg/bag) IV ONE (11:10)
[2018-05-20] MEDS ORDERED: normal saline 1000ML IV soln IVB ONE (11:10)
[2018-05-20] MEDS ORDERED: dicyclomine 10 MG capsule PO ONE (11:10)
== END 2018-05-20 13:49 | disposition home or self-care (01) ==
LOC: ER 09:56
DX: K58.9 Irritable bowel syndrome, unspecified (principal); E87.6 Hypokalemia; R11.10 Vomiting, unspecified; I11.0 Hypertensive heart disease with heart failure; I50.9 Heart failure, unspecified; E11.42 Type 2 diabetes mellitus with diabetic polyneuropathy; G89.29 Other chronic pain; E78.00 Pure hypercholesterolemia, unspecified; J44.9 Chronic obstructive pulmonary disease, unspecified; M19.90 Unspecified osteoarthritis, unspecified site; Z88.5 Allergy status to narcotic agent; Z88.8 Allergy status to other drugs, medicaments and biological substances; Z79.82 Long term (current) use of aspirin; Z79.899 Other long term (current) drug therapy
CPT/HCPCS: 36415; 80053; 85025; 85610; 96360; 96361; 99285; J3480; J7030; Q0169

== ENCOUNTER 2018-05-23 10:09 | Emergency (ER) | payer MEDICARE, OTHER ==
[~2018-05-23] VITALS: Ht 167.6 cm; Wt 90.9 kg
[~2018-05-23 10:09] MED LIST changes: +PHE12.5T PO
[2018-05-23] MEDS ORDERED: ondansetron/PF 4mg/2ml inj IV ONE (10:25)
[2018-05-23] MEDS ORDERED: morphine 4 MG/ML inj SYRINge IV ONE (10:25)
[2018-05-23 10:44] LABS: BASOPHILS # (AUTO) 0.1 X10'3 (0-0.2); BASOPHILS % (AUTO) 1.4 % (0-1); EOSINOPHILS # (AUTO) 0.2 X10'3 (0-0.9); EOSINOPHILS % (AUTO) 2.9 % (0-6); HEMATOCRIT 43.6 % (35.0-45.0); HEMOGLOBIN 14.3 g/dl (12.0-16.0); LYMPHOCYTES % (AUTO) 17.3 % (21-51); MEAN CORPUSCULAR HEMOGLOBIN 28.6 PG (27.0-31.0); MEAN CORPUSCULAR HGB CONC 32.8 % (33.0-36.5); MEAN CORPUSCULAR VOLUME 87.2 FL (78-98); MEAN PLATELET VOLUME 8.7 FL (7.4-10.4); MONOCYTES # (AUTO) 0.3 X10'3 (0-0.9); NEUTROPHILS # (AUTO) 4.2 X10'3 (1.8-7.7); NEUTROPHILS % (AUTO) 73.4 % (42-75); PLATELET COUNT 243 X10'3 (140-440); RED CELL DISTRIBUTION WIDTH 15.2 % (11.5-14.5); WHITE BLOOD COUNT 5.8 X10'3 (4.5-11.0)
[2018-05-23 10:55] LABS: ALANINE AMINOTRANSFERASE 19 U/L (12-78); ALBUMIN 3.3 G/DL (3.4-5.0); ALBUMIN/GLOBULIN RATIO 0.9 (1.1-1.5); ALKALINE PHOSPHATASE 109 IU/L (46-116); ANION GAP 15 (8-16); ASPARTATE AMINO TRANSFERASE 26 U/L (10-37); BILIRUBIN,TOTAL 0.6 MG/DL (0.1-1.0); BLOOD UREA NITROGEN 7 MG/DL (7-18); BUN/CREATININE RATIO 6.4 (6.6-38.0); CALCIUM 8.8 MG/DL (8.5-10.1); CHLORIDE 104 MMOL/L (99-107); GLUCOSE 191 MG/DL (70-104); LIPASE 181 U/L (73-393); SODIUM 141 MMOL/L (135-145); TOTAL CARBON DIOXIDE 22.2 MMOL/L (24-32); eGFR 60 ML/MIN
[2018-05-23 10:57] LABS: INR 1.1 INR; PROTHROMBIN TIME 11.3 SECONDS (9.0-12.0)
[2018-05-23] MEDS ORDERED: potassium Cl 20 mEq SR tablet PO ONE (11:25)
[2018-05-23 11:33] LABS: CLARITY,URINE CLEAR (Clear); COLOR,URINE YELLOW (Yellow); GLUCOSE, URINE NEGATIVE (Neg); KETONES,URINE TRACE mg/dl (Neg); LEUKOCYTE ESTERASE ,URINE NEGATIVE (Neg); NITRITES, URINE NEGATIVE (Neg); OCCULT BLOOD,URINE NEGATIVE (Neg); PROTEIN,URINE TRACE mg/dl (Neg)
[2018-05-23 11:44] VITALS: BP 113/73
[2018-05-23 11:44] LABS: UA COLLECTION TYPE STRAIGHT CATH
[2018-05-23 11:45] LABS: BACTERIA,URINE FEW /HPF (Neg); MUCUS STRANDS MODERATE /LPF (Neg); RBC,URINE 0-2 /HPF (0-2); SQUAMOUS EPITHELIAL CELL,UR FEW /LPF (FEW)
[2018-05-23] MEDS ORDERED: ONDA4TAB9 PO (11:57)
== END 2018-05-23 12:28 | disposition home or self-care (01) ==
LOC: ER 10:10
DX: E87.6 Hypokalemia (principal); R11.2 Nausea with vomiting, unspecified; R10.84 Generalized abdominal pain; E11.42 Type 2 diabetes mellitus with diabetic polyneuropathy; I11.0 Hypertensive heart disease with heart failure; I50.9 Heart failure, unspecified; J44.9 Chronic obstructive pulmonary disease, unspecified; M19.90 Unspecified osteoarthritis, unspecified site; G89.29 Other chronic pain; Z95.5 Presence of coronary angioplasty implant and graft; Z90.49 Acquired absence of other specified parts of digestive tract; Z90.710 Acquired absence of both cervix and uterus; Z98.890 Other specified postprocedural states; Z85.3 Personal history of malignant neoplasm of breast; Z86.73 Personal history of transient ischemic attack (TIA), and cerebral infarction without residual deficits; Z88.5 Allergy status to narcotic agent; Z88.8 Allergy status to other drugs, medicaments and biological substances; Z79.82 Long term (current) use of aspirin; Z79.899 Other long term (current) drug therapy
CPT/HCPCS: 36415; 80053; 81001; 83690; 85025; 85610; 87088; 96374; 96375; 99284; J2270; J2405; P9612

== ENCOUNTER 2018-05-24 21:55 | Emergency (ER) | payer MEDICARE, OTHER ==
[~2018-05-24] VITALS: Ht 167.6 cm; Wt 90.9 kg
[2018-05-24 22:42] LABS: BASOPHILS % (AUTO) 0.6 % (0-1); EOSINOPHILS # (AUTO) 0.3 X10'3 (0-0.9); EOSINOPHILS % (AUTO) 5.2 % (0-6); HEMATOCRIT 38.6 % (35.0-45.0); HEMOGLOBIN 12.8 g/dl (12.0-16.0); LYMPHOCYTES # (AUTO) 1.9 X10'3 (1.1-4.8); LYMPHOCYTES % (AUTO) 27.6 % (21-51); MEAN CORPUSCULAR HGB CONC 33.1 % (33.0-36.5); MEAN CORPUSCULAR VOLUME 87.7 FL (78-98); MEAN PLATELET VOLUME 8.7 FL (7.4-10.4); MONOCYTES # (AUTO) 0.5 X10'3 (0-0.9); MONOCYTES % (AUTO) 7.8 % (2-12); NEUTROPHILS % (AUTO) 58.8 % (42-75); PLATELET COUNT 243 X10'3 (140-440); RED CELL DISTRIBUTION WIDTH 15.1 % (11.5-14.5); WHITE BLOOD COUNT 6.7 X10'3 (4.5-11.0)
[2018-05-24 22:56] LABS: ALANINE AMINOTRANSFERASE 17 U/L (12-78); ALBUMIN 3.3 G/DL (3.4-5.0); ALBUMIN/GLOBULIN RATIO 0.9 (1.1-1.5); ALKALINE PHOSPHATASE 99 IU/L (46-116); ANION GAP 13 (8-16); ASPARTATE AMINO TRANSFERASE 23 U/L (10-37); BILIRUBIN,TOTAL 0.3 MG/DL (0.1-1.0); BLOOD UREA NITROGEN 6 MG/DL (7-18); BUN/CREATININE RATIO 5.6 (6.6-38.0); CALCIUM 9.3 MG/DL (8.5-10.1); CHLORIDE 103 MMOL/L (99-107); CREATININE 1.07 MG/DL (0.40-0.90); GLUCOSE 111 MG/DL (70-104); SODIUM 138 MMOL/L (135-145); TOTAL PROTEIN 6.8 G/DL (6.4-8.2); eGFR 62 ML/MIN
[2018-05-24 23:03] LABS: POTASSIUM 2.7 MMOL/L (3.5-5.1)
[2018-05-24 23:04] LABS: INR 1.1 INR; PARTIAL THROMBOPLASTIN TIME 28 SECONDS (22-32); PROTHROMBIN TIME 11.1 SECONDS (9.0-12.0)
[2018-05-24] MEDS ORDERED: potassium Cl 10 mEq/100mL bag IV ONE (23:10)
[2018-05-24 23:35] LABS: MAGNESIUM 1.7 MG/DL (1.5-2.4)
[2018-05-24] MEDS ORDERED: potass W/LIDOcaine 10mEq/100ml 100 ML IV ONE (23:35)
[2018-05-25] MEDS ORDERED: potassium Cl oral solution 20 MEQ/15 ML PO ONE (00:40)
[2018-05-25 01:08] VITALS: BP 128/75
== END 2018-05-25 01:23 | disposition home or self-care (01) ==
LOC: ER 21:55
DX: R07.89 Other chest pain (principal); E11.42 Type 2 diabetes mellitus with diabetic polyneuropathy; I11.0 Hypertensive heart disease with heart failure; I50.9 Heart failure, unspecified; E78.00 Pure hypercholesterolemia, unspecified; J44.9 Chronic obstructive pulmonary disease, unspecified; M19.90 Unspecified osteoarthritis, unspecified site; G89.29 Other chronic pain; Z95.5 Presence of coronary angioplasty implant and graft; Z90.49 Acquired absence of other specified parts of digestive tract; Z90.710 Acquired absence of both cervix and uterus; Z98.890 Other specified postprocedural states; Z85.3 Personal history of malignant neoplasm of breast; Z86.73 Personal history of transient ischemic attack (TIA), and cerebral infarction without residual deficits; Z88.5 Allergy status to narcotic agent; Z79.82 Long term (current) use of aspirin; Z79.899 Other long term (current) drug therapy
CPT/HCPCS: 36415; 71045; 80053; 83735; 83880; 84484; 85025; 85610; 85730; 93005; 99285; J3480

== ENCOUNTER 2018-07-29 10:37 | Emergency (ER) | payer MEDICARE ==
[~2018-07-29] VITALS: Ht 167.6 cm; Wt 90.0 kg
[~2018-07-29 10:37] MED LIST changes: +CIPR-230 PO
[2018-07-29 11:16] LABS: BASOPHILS % (AUTO) 0.2 % (0-1); EOSINOPHILS # (AUTO) 0.1 X10'3 (0-0.9); EOSINOPHILS % (AUTO) 1.2 % (0-6); HEMATOCRIT 41.8 % (35.0-45.0); HEMOGLOBIN 13.9 g/dl (12.0-16.0); LYMPHOCYTES # (AUTO) 0.8 X10'3 (1.1-4.8); LYMPHOCYTES % (AUTO) 15.3 % (21-51); MEAN CORPUSCULAR HEMOGLOBIN 29.8 PG (27.0-31.0); MEAN CORPUSCULAR HGB CONC 33.2 % (33.0-36.5); MEAN CORPUSCULAR VOLUME 89.8 FL (78-98); MEAN PLATELET VOLUME 8.4 FL (7.4-10.4); MONOCYTES # (AUTO) 0.3 X10'3 (0-0.9); NEUTROPHILS # (AUTO) 4.1 X10'3 (1.8-7.7); NEUTROPHILS % (AUTO) 77.3 % (42-75); PLATELET COUNT 234 X10'3 (140-440); RED BLOOD COUNT 4.65 X10'6 (4.20-5.60); RED CELL DISTRIBUTION WIDTH 15.9 % (11.5-14.5); WHITE BLOOD COUNT 5.4 X10'3 (4.5-11.0)
[2018-07-29 11:32] LABS: ALANINE AMINOTRANSFERASE 18 U/L (12-78); ALBUMIN 3.4 G/DL (3.4-5.0); ALKALINE PHOSPHATASE 113 IU/L (46-116); ANION GAP 14 (8-16); ASPARTATE AMINO TRANSFERASE 27 U/L (10-37); BILIRUBIN,TOTAL 0.3 MG/DL (0.1-1.0); BLOOD UREA NITROGEN 11 MG/DL (7-18); CALCIUM 9.5 MG/DL (8.5-10.1); CHLORIDE 100 MMOL/L (99-107); CREATININE 1.22 MG/DL (0.40-0.90); GLUCOSE 164 MG/DL (70-104); POTASSIUM 3.1 MMOL/L (3.5-5.1); SODIUM 139 MMOL/L (135-145); TOTAL CARBON DIOXIDE 25.3 MMOL/L (24-32); TOTAL PROTEIN 6.9 G/DL (6.4-8.2); eGFR 53 ML/MIN
[2018-07-29 11:45] LABS: INR 1.1 INR; PARTIAL THROMBOPLASTIN TIME 29 SECONDS (22-32); PROTHROMBIN TIME 11.2 SECONDS (9.0-12.0)
[2018-07-29] MEDS ORDERED: potassium Cl 20 mEq SR tablet PO STA (11:53)
[2018-07-29] MEDS ORDERED: normal saline 1000ML IV soln IVB ONE (11:55)
[2018-07-29 12:51] VITALS: BP 175/95
== END 2018-07-29 14:36 | disposition home or self-care (01) ==
LOC: ER 10:38
DX: R07.89 Other chest pain (principal); R74.0 Nonspecific elevation of levels of transaminase and lactic acid dehydrogenase [LDH]; E78.00 Pure hypercholesterolemia, unspecified; J44.9 Chronic obstructive pulmonary disease, unspecified; M19.90 Unspecified osteoarthritis, unspecified site; G89.29 Other chronic pain; I11.0 Hypertensive heart disease with heart failure; I50.9 Heart failure, unspecified; E11.42 Type 2 diabetes mellitus with diabetic polyneuropathy; Z88.8 Allergy status to other drugs, medicaments and biological substances; Z88.6 Allergy status to analgesic agent; Z79.899 Other long term (current) drug therapy; Z79.82 Long term (current) use of aspirin; Z86.73 Personal history of transient ischemic attack (TIA), and cerebral infarction without residual deficits; Z90.49 Acquired absence of other specified parts of digestive tract; Z90.710 Acquired absence of both cervix and uterus; Z98.61 Coronary angioplasty status
CPT/HCPCS: 36415; 71046; 80053; 83605; 84484; 85025; 85610; 85730; 87040; 93005; 99284

== ENCOUNTER 2018-07-29 14:36 | Emergency (ER) | payer MEDICARE ==
[~2018-07-29] VITALS: Ht 165.1 cm; Wt 90.0 kg
[2018-07-29 15:31] VITALS: BP 145/89
== END 2018-07-29 15:33 | disposition home or self-care (01) ==
LOC: ER 14:37
DX: R79.89 Other specified abnormal findings of blood chemistry (principal); E11.42 Type 2 diabetes mellitus with diabetic polyneuropathy; I11.0 Hypertensive heart disease with heart failure; I50.9 Heart failure, unspecified; E78.00 Pure hypercholesterolemia, unspecified; J44.9 Chronic obstructive pulmonary disease, unspecified; M19.90 Unspecified osteoarthritis, unspecified site; G89.29 Other chronic pain; Z86.73 Personal history of transient ischemic attack (TIA), and cerebral infarction without residual deficits; Z95.5 Presence of coronary angioplasty implant and graft; Z90.49 Acquired absence of other specified parts of digestive tract; Z90.710 Acquired absence of both cervix and uterus; Z98.890 Other specified postprocedural states; Z88.5 Allergy status to narcotic agent; Z88.8 Allergy status to other drugs, medicaments and biological substances; Z79.82 Long term (current) use of aspirin; Z79.899 Other long term (current) drug therapy
CPT/HCPCS: 36415; 83605; 99283

== ENCOUNTER 2018-12-14 17:28 | Emergency (ER) | payer MEDICARE, MEDICAID ==
[~2018-12-14] VITALS: Ht 167.6 cm; Wt 90.5 kg
[~2018-12-14 17:28] MED LIST changes: -CIPR-230 PO
[2018-12-14 17:46] VITALS: BP 107/58
[2018-12-14 18:38] LABS: BASOPHILS % (AUTO) 0.9 % (0-1); EOSINOPHILS # (AUTO) 0.3 X10'3 (0-0.9); EOSINOPHILS % (AUTO) 7.4 % (0-6); HEMATOCRIT 35.9 % (35.0-45.0); LYMPHOCYTES # (AUTO) 1.7 X10'3 (1.1-4.8); LYMPHOCYTES % (AUTO) 37.3 % (21-51); MEAN CORPUSCULAR HEMOGLOBIN 30.6 PG (27.0-31.0); MEAN CORPUSCULAR HGB CONC 33.4 g/dL (33.0-36.5); MEAN CORPUSCULAR VOLUME 91.6 FL (78-98); MEAN PLATELET VOLUME 9.2 FL (7.4-10.4); MONOCYTES # (AUTO) 0.5 X10'3 (0-0.9); MONOCYTES % (AUTO) 11.2 % (2-12); NEUTROPHILS # (AUTO) 1.9 X10'3 (1.8-7.7); NEUTROPHILS % (AUTO) 43.2 % (42-75); PLATELET COUNT 148 X10'3 (140-440); RED BLOOD COUNT 3.92 X10'6 (4.20-5.60); RED CELL DISTRIBUTION WIDTH 14.9 % (11.5-14.5); WHITE BLOOD COUNT 4.5 X10'3 (4.5-11.0)
[2018-12-14 18:58] LABS: INR 1.1 INR; PARTIAL THROMBOPLASTIN TIME 32 SECONDS (22-32)
[2018-12-14 19:10] LABS: ALANINE AMINOTRANSFERASE 59 U/L (12-78); ALBUMIN 3.2 G/DL (3.4-5.0); ALKALINE PHOSPHATASE 141 IU/L (46-116); ANION GAP 7 (8-16); ASPARTATE AMINO TRANSFERASE 55 U/L (10-37); BILIRUBIN,TOTAL 0.3 MG/DL (0.1-1.0); BLOOD UREA NITROGEN 6 MG/DL (7-18); BUN/CREATININE RATIO 6.5 (6.6-38.0); CALCIUM 9.6 MG/DL (8.5-10.1); CHLORIDE 106 MMOL/L (99-107); CREATININE 0.93 MG/DL (0.40-0.90); GLUCOSE 79 MG/DL (70-104); POTASSIUM 3.6 MMOL/L (3.5-5.1); SODIUM 141 MMOL/L (135-145); TOTAL CARBON DIOXIDE 28.4 MMOL/L (24-32); TOTAL PROTEIN 6.4 G/DL (6.4-8.2); eGFR 72 ML/MIN
[2018-12-14] MEDS ORDERED: normal saline 1000ML IV soln IVB ONE (19:30)
[2018-12-14 19:56] LABS: CLARITY,URINE CLEAR (Clear); COLOR,URINE YELLOW (Yellow); GLUCOSE, URINE NEGATIVE (Neg); KETONES,URINE NEGATIVE (Neg); LEUKOCYTE ESTERASE ,URINE SMALL (Neg); NITRITES, URINE NEGATIVE (Neg); OCCULT BLOOD,URINE NEGATIVE (Neg); PROTEIN,URINE NEGATIVE (Neg); UROBILINOGEN,URINE 0.2 E.U/dL (0.2-1.0)
[2018-12-14 20:02] LABS: UA COLLECTION TYPE CLN CATCH MIDSTREAM
[2018-12-14 20:07] LABS: BACTERIA,URINE NONE SEEN /HPF (Neg); RBC,URINE NONE SEEN /HPF (0-2); SQUAMOUS EPITHELIAL CELL,UR FEW /LPF (FEW)
== END 2018-12-14 20:38 | disposition home or self-care (01) ==
LOC: ER 17:29
DX: R53.1 Weakness (principal); I11.0 Hypertensive heart disease with heart failure; I50.9 Heart failure, unspecified; E11.40 Type 2 diabetes mellitus with diabetic neuropathy, unspecified; E78.00 Pure hypercholesterolemia, unspecified; J44.9 Chronic obstructive pulmonary disease, unspecified; M19.90 Unspecified osteoarthritis, unspecified site; G89.29 Other chronic pain; Z86.73 Personal history of transient ischemic attack (TIA), and cerebral infarction without residual deficits; Z90.710 Acquired absence of both cervix and uterus; Z90.49 Acquired absence of other specified parts of digestive tract; Z88.6 Allergy status to analgesic agent; Z88.8 Allergy status to other drugs, medicaments and biological substances; Z79.82 Long term (current) use of aspirin
CPT/HCPCS: 36415; 71045; 80053; 81001; 84484; 85025; 85610; 85730; 87088; 93005; 99284; J7030; 96360

== ENCOUNTER 2019-01-06 11:31 | Emergency (ER) | payer MEDICARE, MEDICAID ==
[~2019-01-06] VITALS: Ht 167.6 cm; Wt 90.9 kg
[2019-01-06] MEDS ORDERED: normal saline 1000ML IV soln IVB ONE (12:30)
[2019-01-06 12:44] LABS: BASOPHILS % (AUTO) 0.5 % (0-1); EOSINOPHILS # (AUTO) 0.2 X10'3 (0-0.9); EOSINOPHILS % (AUTO) 5.9 % (0-6); HEMOGLOBIN 12.5 g/dl (12.0-16.0); LYMPHOCYTES # (AUTO) 1.5 X10'3 (1.1-4.8); LYMPHOCYTES % (AUTO) 35.6 % (21-51); MEAN CORPUSCULAR HEMOGLOBIN 30.8 PG (27.0-31.0); MEAN CORPUSCULAR HGB CONC 33.9 g/dL (33.0-36.5); MEAN PLATELET VOLUME 8.5 FL (7.4-10.4); MONOCYTES # (AUTO) 0.4 X10'3 (0-0.9); MONOCYTES % (AUTO) 10.1 % (2-12); NEUTROPHILS % (AUTO) 47.9 % (42-75); PLATELET COUNT 144 X10'3 (140-440); RED BLOOD COUNT 4.06 X10'6 (4.20-5.60); RED CELL DISTRIBUTION WIDTH 14.7 % (11.5-14.5); WHITE BLOOD COUNT 4.1 X10'3 (4.5-11.0)
[2019-01-06 13:01] LABS: ALANINE AMINOTRANSFERASE 33 U/L (12-78); ALBUMIN 3.2 G/DL (3.4-5.0); ALKALINE PHOSPHATASE 136 IU/L (46-116); ANION GAP 9 (8-16); ASPARTATE AMINO TRANSFERASE 42 U/L (10-37); BILIRUBIN,TOTAL 0.2 MG/DL (0.1-1.0); BLOOD UREA NITROGEN 13 MG/DL (7-18); BUN/CREATININE RATIO 10.7 (6.6-38.0); CALCIUM 9.2 MG/DL (8.5-10.1); CHLORIDE 103 MMOL/L (99-107); CREATININE 1.21 MG/DL (0.40-0.90); GLUCOSE 65 MG/DL (70-104); POTASSIUM 3.5 MMOL/L (3.5-5.1); SODIUM 140 MMOL/L (135-145); TOTAL CARBON DIOXIDE 27.6 MMOL/L (24-32); TOTAL PROTEIN 6.5 G/DL (6.4-8.2); eGFR 53 ML/MIN
[2019-01-06 13:07] LABS: CLARITY,URINE CLEAR (Clear); COLOR,URINE YELLOW (Yellow); GLUCOSE, URINE NEGATIVE (Neg); KETONES,URINE NEGATIVE (Neg); LEUKOCYTE ESTERASE ,URINE NEGATIVE (Neg); NITRITES, URINE NEGATIVE (Neg); OCCULT BLOOD,URINE NEGATIVE (Neg); PH,URINE 5.5 (4.8-8.0); PROTEIN,URINE NEGATIVE (Neg); UROBILINOGEN,URINE 0.2 E.U/dL (0.2-1.0)
[2019-01-06 13:11] LABS: MAGNESIUM 1.6 MG/DL (1.5-2.4)
[2019-01-06 13:11] LABS: UA COLLECTION TYPE CLN CATCH MIDSTREAM
[2019-01-06 14:09] VITALS: BP 142/78
== END 2019-01-06 14:15 | disposition home or self-care (01) ==
LOC: ER 11:32
DX: R41.0 Disorientation, unspecified (principal); R42 Dizziness and giddiness; I11.0 Hypertensive heart disease with heart failure; I50.9 Heart failure, unspecified; E11.40 Type 2 diabetes mellitus with diabetic neuropathy, unspecified; E78.00 Pure hypercholesterolemia, unspecified; J44.9 Chronic obstructive pulmonary disease, unspecified; M19.90 Unspecified osteoarthritis, unspecified site; G89.29 Other chronic pain; Z86.73 Personal history of transient ischemic attack (TIA), and cerebral infarction without residual deficits; Z95.1 Presence of aortocoronary bypass graft; Z90.710 Acquired absence of both cervix and uterus; Z79.82 Long term (current) use of aspirin; Z88.6 Allergy status to analgesic agent; Z88.8 Allergy status to other drugs, medicaments and biological substances
CPT/HCPCS: 36415; 70450; 71045; 80053; 81003; 82948; 83735; 84443; 84484; 85025; 85610; 93005; 99284; J7030

== ENCOUNTER 2019-01-09 23:14 | Emergency (ER) | payer MEDICARE, MEDICAID ==
[~2019-01-09] VITALS: Ht 167.6 cm; Wt 90.9 kg
[2019-01-09] MEDS ORDERED: normal saline 1000ML IV soln IVB ONE (23:35)
[2019-01-09] MEDS ORDERED: ondansetron/PF 4mg/2ml inj IV ONE (23:35)
[2019-01-09 23:37] LABS: BASOPHILS # (AUTO) 0.1 X10'3 (0-0.2); BASOPHILS % (AUTO) 0.8 % (0-1); EOSINOPHILS # (AUTO) 0.2 X10'3 (0-0.9); EOSINOPHILS % (AUTO) 3.1 % (0-6); HEMATOCRIT 44.3 % (35.0-45.0); LYMPHOCYTES # (AUTO) 1.8 X10'3 (1.1-4.8); LYMPHOCYTES % (AUTO) 29.9 % (21-51); MEAN CORPUSCULAR HEMOGLOBIN 30.6 PG (27.0-31.0); MEAN CORPUSCULAR HGB CONC 33.8 g/dL (33.0-36.5); MEAN CORPUSCULAR VOLUME 90.5 FL (78-98); MONOCYTES # (AUTO) 0.6 X10'3 (0-0.9); MONOCYTES % (AUTO) 10.1 % (2-12); NEUTROPHILS # (AUTO) 3.4 X10'3 (1.8-7.7); NEUTROPHILS % (AUTO) 56.1 % (42-75); PLATELET COUNT 173 X10'3 (140-440); RED CELL DISTRIBUTION WIDTH 14.8 % (11.5-14.5); WHITE BLOOD COUNT 6.1 X10'3 (4.5-11.0)
[2019-01-09 23:52] LABS: ALANINE AMINOTRANSFERASE 29 U/L (12-78); ALBUMIN 3.8 G/DL (3.4-5.0); ALKALINE PHOSPHATASE 133 IU/L (46-116); ANION GAP 12 (8-16); ASPARTATE AMINO TRANSFERASE 27 U/L (10-37); BILIRUBIN,TOTAL 0.6 MG/DL (0.1-1.0); BLOOD UREA NITROGEN 5 MG/DL (7-18); BUN/CREATININE RATIO 5.2 (6.6-38.0); CALCIUM 9.7 MG/DL (8.5-10.1); CHLORIDE 107 MMOL/L (99-107); CREATININE 0.96 MG/DL (0.40-0.90); GLUCOSE 94 MG/DL (70-104); POTASSIUM 3.2 MMOL/L (3.5-5.1); SODIUM 143 MMOL/L (135-145); TOTAL CARBON DIOXIDE 23.8 MMOL/L (24-32); TOTAL PROTEIN 7.6 G/DL (6.4-8.2); eGFR 70 ML/MIN
--- NOTE | 2019-01-10 00:07 | NUR ---
DR GUEVARA AT BEDSIDE WITH PT
[2019-01-10] MEDS ORDERED: loperamide 2mg capsule PO ONE (00:10)
[2019-01-10] MEDS ORDERED: glycopyrrolate 0.2mg/ml inj IV ONE (00:10)
[2019-01-10 01:25] VITALS: BP 189/102
[2019-01-10 01:48] LABS: UA COLLECTION TYPE STRAIGHT CATH
[2019-01-10 01:49] LABS: CLARITY,URINE CLEAR (Clear); COLOR,URINE YELLOW (Yellow); GLUCOSE, URINE NEGATIVE (Neg); KETONES,URINE 15 mg/dl (Neg); LEUKOCYTE ESTERASE ,URINE TRACE (Neg); NITRITES, URINE NEGATIVE (Neg); OCCULT BLOOD,URINE NEGATIVE (Neg); PH,URINE 8.5 (4.8-8.0); PROTEIN,URINE 30 mg/dl (Neg); UROBILINOGEN,URINE 0.2 E.U/dL (0.2-1.0)
[2019-01-10 01:57] LABS: BACTERIA,URINE NONE SEEN /HPF (Neg); MUCUS STRANDS FEW /LPF (Neg); RBC,URINE NONE SEEN /HPF (0-2); SQUAMOUS EPITHELIAL CELL,UR NONE SEEN /LPF (FEW); WBC,URINE 0-4 /HPF (0-4)
[2019-01-10] MEDS ORDERED: ONDA4TAB12 PO (02:24)
[2019-01-10] MEDS ORDERED: POTA20TA19 PO (02:24)
[2019-01-10] MEDS ORDERED: LOPE-144 PO (02:24)
== END 2019-01-10 02:29 | disposition home or self-care (01) ==
LOC: ER 23:15
DX: R11.10 Vomiting, unspecified (principal); R19.7 Diarrhea, unspecified; E87.6 Hypokalemia; I11.0 Hypertensive heart disease with heart failure; I50.9 Heart failure, unspecified; E78.00 Pure hypercholesterolemia, unspecified; J44.9 Chronic obstructive pulmonary disease, unspecified; E11.9 Type 2 diabetes mellitus without complications; M19.90 Unspecified osteoarthritis, unspecified site; G89.29 Other chronic pain; G62.9 Polyneuropathy, unspecified; Z90.710 Acquired absence of both cervix and uterus; Z98.890 Other specified postprocedural states; Z88.5 Allergy status to narcotic agent; Z88.8 Allergy status to other drugs, medicaments and biological substances; Z79.82 Long term (current) use of aspirin; Z79.899 Other long term (current) drug therapy; Z86.73 Personal history of transient ischemic attack (TIA), and cerebral infarction without residual deficits; Z85.3 Personal history of malignant neoplasm of breast
CPT/HCPCS: 36415; 80053; 81001; 85025; 85610; 87088; 96361; 96374; 96375; 99283; J2405; J7030; J3490

== ENCOUNTER 2019-01-22 16:56 | Observation (INO) | payer MEDICARE, MEDICAID ==
[~2019-01-22] VITALS: Ht 167.6 cm; Wt 90.7 kg
[~2019-01-22 16:56] MED LIST changes: +LOPE-144 PO; +ONDA4TAB12 PO; -PHE12.5T PO; +POTA20TA19 PO; +PROM12.512 PO
[2019-01-22 17:57] LABS: BASOPHILS # (AUTO) 0.1 X10'3 (0-0.2); BASOPHILS % (AUTO) 0.8 % (0-1); EOSINOPHILS # (AUTO) 0.2 X10'3 (0-0.9); EOSINOPHILS % (AUTO) 2.4 % (0-6); HEMATOCRIT 40.7 % (35.0-45.0); HEMOGLOBIN 13.6 g/dl (12.0-16.0); LYMPHOCYTES # (AUTO) 2.1 X10'3 (1.1-4.8); MEAN CORPUSCULAR HEMOGLOBIN 30.5 PG (27.0-31.0); MEAN CORPUSCULAR HGB CONC 33.5 g/dL (33.0-36.5); MEAN CORPUSCULAR VOLUME 90.9 FL (78-98); MEAN PLATELET VOLUME 8.9 FL (7.4-10.4); MONOCYTES # (AUTO) 0.6 X10'3 (0-0.9); NEUTROPHILS # (AUTO) 4.1 X10'3 (1.8-7.7); NEUTROPHILS % (AUTO) 58.8 % (42-75); PLATELET COUNT 241 X10'3 (140-440); RED BLOOD COUNT 4.47 X10'6 (4.20-5.60); RED CELL DISTRIBUTION WIDTH 14.7 % (11.5-14.5)
[2019-01-22 18:06] LABS: PARTIAL THROMBOPLASTIN TIME 28 SECONDS (22-32)
[2019-01-22 18:10] LABS: ALANINE AMINOTRANSFERASE 32 U/L (12-78); ALBUMIN 3.3 G/DL (3.4-5.0); ALKALINE PHOSPHATASE 110 IU/L (46-116); ANION GAP 8 (8-16); ASPARTATE AMINO TRANSFERASE 57 U/L (10-37); BILIRUBIN,TOTAL 0.3 MG/DL (0.1-1.0); BLOOD UREA NITROGEN 5 MG/DL (7-18); BUN/CREATININE RATIO 4.6 (6.6-38.0); CALCIUM 9.5 MG/DL (8.5-10.1); CHLORIDE 104 MMOL/L (99-107); CREATININE 1.09 MG/DL (0.40-0.90); GLUCOSE 92 MG/DL (70-104); POTASSIUM 3.4 MMOL/L (3.5-5.1); SODIUM 139 MMOL/L (135-145); TOTAL CARBON DIOXIDE 26.9 MMOL/L (24-32); TOTAL PROTEIN 6.6 G/DL (6.4-8.2); eGFR 60 ML/MIN
--- NOTE | 2019-01-22 18:30 | NUR ---
REPORT OBTAINED FROM NADINE YU RN. CURRENTLY PT IS OUT TO CT.
--- NOTE | 2019-01-22 18:45 | NUR ---
TRAUMA ALERT CALLED OF PER MD COLEMAN
[2019-01-22] MEDS ORDERED: normal saline 1000ML IV soln IVB ONE (19:25)
[2019-01-22] MEDS ORDERED: HYDROcodone/acetaminophen 5mg/325mg tablet PO ONE (19:25)
[2019-01-22 19:50] LABS: CLARITY,URINE CLEAR (Clear); COLOR,URINE YELLOW (Yellow); GLUCOSE, URINE NEGATIVE (Neg); KETONES,URINE NEGATIVE (Neg); LEUKOCYTE ESTERASE ,URINE MODERATE (Neg); NITRITES, URINE NEGATIVE (Neg); OCCULT BLOOD,URINE NEGATIVE (Neg); PROTEIN,URINE NEGATIVE (Neg); UROBILINOGEN,URINE 0.2 E.U/dL (0.2-1.0)
[2019-01-22 19:55] LABS: UA COLLECTION TYPE CLN CATCH MIDSTREAM
[2019-01-22 19:59] LABS: SQUAMOUS EPITHELIAL CELL,UR MODERATE /LPF (FEW)
[2019-01-22 20:00] LABS: BACTERIA,URINE FEW /HPF (Neg); MUCUS STRANDS FEW /LPF (Neg); RBC,URINE 0-2 /HPF (0-2)
[2019-01-22] MEDS ORDERED: sulfamethoxazole/trimethoprim DS (800/160mg) tablet PO ONE (21:05)
[2019-01-23] MEDS ORDERED: HYDROcodone/acetaminophen 5mg/325mg tablet PO PRN (00:05)
[2019-01-23] MEDS ORDERED: regadenoson 0.4mg/5ml syringe IV PRN (00:05)
[2019-01-23] MEDS ORDERED: mag hydrox/Alum hydrox/simeth 30ml oral suspension PO PRN (00:05)
[2019-01-23] MEDS ORDERED: metoprolol tartrate 1mg/ml inj IV PRN (00:05)
[2019-01-23] MEDS ORDERED: acetaminophen 325mg tablet PO PRN ×2 (00:05)
[2019-01-23] MEDS ORDERED: magnesium hydroxide 30ml (MOM) UD suspension PO PRN (00:05)
[2019-01-23] MEDS ORDERED: potassium Cl 40MEQ/NS 500ml 500 ML IV PRN (00:05)
[2019-01-23] MEDS ORDERED: potassium Cl 20 mEq SR tablet PO PRN ×2 (00:05)
[2019-01-23] MEDS ORDERED: magnesium 4gm in 100ml NS 100 ML IV PRN (00:05)
[2019-01-23] MEDS ORDERED: ondansetron/PF 4mg/2ml inj IV PRN (00:05)
[2019-01-23] MEDS ORDERED: magnesium 2GM in 50ml NS 50 ML IV PRN (00:05)
[2019-01-23] MEDS ORDERED: morphine 2 MG/ML inj. syringe IV PRN ×2 (00:05)
[2019-01-23] MEDS ORDERED: aminophylline 250mg/10ml inj. IV PRN (00:05)
[2019-01-23] MEDS ORDERED: HYDROcodone/acetaminophen 10/325mg tab PO PRN (00:05)
[2019-01-23] MEDS ORDERED: potassium CL 10mEq/100ml bag 100 ML IV PRN (00:05)
[2019-01-23] MEDS ORDERED: magnesium Cl slow-release 64mg tablet PO PRN (00:05)
[2019-01-23 00:38] LABS: PHOSPHORUS 1.8 MG/DL (2.3-4.5)
[2019-01-23] MEDS ORDERED: non-formulary drug (Albuterol Sulfate (Ventolin Hfa) 2 PUFFS) INH SCH (00:55)
[2019-01-23] MEDS ORDERED: traMADol 50MG tablet PO PRN (00:55)
[2019-01-23] MEDS ORDERED: albuterol 2.5 MG/3 ML nebule NEB PRN (01:05)
[2019-01-23 02:15] VITALS: BP 175/96
[2019-01-23] MEDS: normal saline 1000ml 1,000 ML IV SCH ×2 (02:26→10:04)
--- NOTE | 2019-01-23 06:15 | NUR ---
Patient in room PCU 3026. I have received report from ROMAN Carrillo and had the opportunity to ask questions and assume patient care. Patient is currently resting in bed, bed locked and low, call light in reach, NPO for lexiscan later today, no acute distress, no report of current chest pain. Will continue to monitor.
[2019-01-23 07:00] VITALS: BP 168/86
--- NOTE | 2019-01-23 07:34 | NUR ---
PAGER ID: [phone] MESSAGE: ROMAN Mack, ext [phone], [phone], Jaron, Nuc med called and said she may not get lexiscan today and patient can have breakfast at least, need diet order. Nuc med also questioning need for scan since patient had one last march, please advise
[2019-01-23] MEDS ORDERED: PREGABALIN PO SCH (08:00)
[2019-01-23] MEDS ORDERED: pantoprazole 40mg Tablet.DR PO SCH (08:00)
[2019-01-23] MEDS ORDERED: levoTHYROXINE 88mcg tablet PO SCH (08:00)
[2019-01-23] MEDS ORDERED: isosorbide mononitrate 30mg tab.SR.24H PO SCH (08:00)
[2019-01-23] MEDS ORDERED: enoxaparin 40mg/0.4ml syringe SQ SCH (08:00)
[2019-01-23] MEDS ORDERED: duloxetine 20mg capsule.DR PO SCH (08:00)
[2019-01-23] MEDS ORDERED: metoprolol tartrate 25mg tablet PO SCH (08:00)
[2019-01-23] MEDS ORDERED: clopidogrel 75mg tablet PO SCH (08:00)
[2019-01-23] MEDS ORDERED: hydroxychloroquine 200mg tablet PO SCH (08:00)
[2019-01-23] MEDS ORDERED: magnesium oxide 400mg tablet PO SCH (08:00)
[2019-01-23] MEDS ORDERED: docusate sod 250mg capsule PO SCH (08:00)
[2019-01-23] MEDS ORDERED: K and/or MAG REPLACEMENT MC SCH (08:00)
[2019-01-23] MEDS ORDERED: aspirin 325mg tablet PO SCH (08:30)
[2019-01-23] MEDS: pregabalin 75mg capsule PO SCH ×2 (08:53→12:13)
[2019-01-23] MEDS ORDERED: DULO60CA64 PO (09:07)
[2019-01-23 09:17] LABS: ALBUMIN 3.1 G/DL (3.4-5.0); ANION GAP 6 (8-16); BLOOD UREA NITROGEN 6 MG/DL (7-18); BUN/CREATININE RATIO 6.2 (6.6-38.0); CALCIUM 8.7 MG/DL (8.5-10.1); CHLORIDE 106 MMOL/L (99-107); CREATININE 0.97 MG/DL (0.40-0.90); GLUCOSE 73 MG/DL (70-104); POTASSIUM 3.7 MMOL/L (3.5-5.1); SODIUM 140 MMOL/L (135-145); TOTAL CARBON DIOXIDE 27.6 MMOL/L (24-32); eGFR 69 ML/MIN
[2019-01-23] MEDS ORDERED: pneumococcal 23-VAL P-sac vacc 25 mcg/0.5ml vial IMVAC ONE (10:00)
--- NOTE | 2019-01-23 10:45 | NUR ---
Paged Dr. Mejía PAGER ID: [phone] MESSAGE: Aaron OWENS [phone] Iza Salmeron: pt c/o diarrhea; reports 3 stools today. Pt requesting medication for diarrhea. Can we order Immodium? Thank you.
[2019-01-23] MEDS ORDERED: loperamide 2mg capsule PO PRN (10:50)
[2019-01-23] MEDS ORDERED: LEVO50TA PO (10:53)
[2019-01-23 11:00] VITALS: BP 160/80
--- NOTE | 2019-01-23 11:28 | NUR ---
PAGER ID: [phone] MESSAGE: Gabriella OWENS Ext [phone] Jaron refusing discharge, does not feel ready fernandez/c. Medicare paperwork signed. Thank you
--- NOTE | 2019-01-23 13:43 | NUR ---
Dr Mejía spoke with patient regarding discharge status.. Patient is agreeable that remainder of care would be more beneficial on an outpatient status and patient agrees that they are stable enough for discharge. Patient educated about all discharge information, denies questions or complaints. PIV removed from arm, tip is intact. Tele box removed and returned to tele room. Belongings gathered by patient. patient waiting on ride and is enouraged to hit call light as needed. Will continue to monitor patient at this time.
--- NOTE | 2019-01-23 14:04 | NUR ---
Patient's spouse arrived to transport. Patient was taken down to lobby via wheelchair by an aide. Patient stable at time of discharge.
--- NOTE | 2019-01-23 15:11 | NUR ---
Reviewed medication administration and charting completed by ROMAN Mack. Constructive criticism given as needed.
[2019-01-23] MEDS ORDERED: atorvastatin 20mg tablet PO SCH (21:00)
[2019-01-23] MEDS ORDERED: temazepam 15mg capsule PO PRN (21:00)
[2019-01-23] MEDS ORDERED: mirtazapine 15mg tablet PO SCH (21:00)
[2019-01-23] MEDS ORDERED: non-formulary drug (Atorvastatin Calcium* (Lipitor*) 1 TABLET) PO SCH (21:00)
[2019-01-27] MEDS ORDERED: CEPH250T PO (10:05)
[2019-01-27] MEDS ORDERED: HYDR-4383 PO (11:36)
[2019-01-27] MEDS ORDERED: MAG355OR18 PO (11:36)
== END 2019-01-23 14:00 | disposition home or self-care (01) ==
LOC: ER 16:57 → PCU 3S 01-23 01:23 → CMPBEDREQ 01-23 01:27
PROVIDERS: ADMIT Family Medicine; ATTEND Internal Medicine
DX: I25.119 Atherosclerotic heart disease of native coronary artery with unspecified angina pectoris (principal); I13.0 Hypertensive heart and chronic kidney disease with heart failure and stage 1 through stage 4 chronic kidney disease, or unspecified chronic kidney disease; E11.22 Type 2 diabetes mellitus with diabetic chronic kidney disease; N18.9 Chronic kidney disease, unspecified; I50.9 Heart failure, unspecified; E03.9 Hypothyroidism, unspecified; J44.9 Chronic obstructive pulmonary disease, unspecified; M19.90 Unspecified osteoarthritis, unspecified site; G89.29 Other chronic pain; M79.7 Fibromyalgia; K21.9 Gastro-esophageal reflux disease without esophagitis; E11.42 Type 2 diabetes mellitus with diabetic polyneuropathy; K74.60 Unspecified cirrhosis of liver; E78.00 Pure hypercholesterolemia, unspecified; Z86.73 Personal history of transient ischemic attack (TIA), and cerebral infarction without residual deficits; Z90.710 Acquired absence of both cervix and uterus; Z85.3 Personal history of malignant neoplasm of breast; Z98.62 Peripheral vascular angioplasty status; Z79.82 Long term (current) use of aspirin; Z88.1 Allergy status to other antibiotic agents; Z90.89 Acquired absence of other organs
CPT/HCPCS: 36415; 70450; 71045; 72125; 80048; 80053; 81001; 83036; 84100; 84443; 84484; 85025; 85610; 85730; 87070; 87088; 90471; 90732; 93005; 93306; 94760; 96360; 96361; 96372; 99284; G0378; J7030; J1650

== ENCOUNTER 2019-01-26 10:02 | Emergency (ER) | payer MEDICARE, MEDICAID ==
[~2019-01-26] VITALS: Ht 167.6 cm; Wt 74.0 kg
[~2019-01-26 10:02] MED LIST changes: +DULO60CA64 PO; +LEVO50TA PO
[2019-01-26] MEDS ORDERED: diphenhydrAMINE 50 mg/ml inj IV ONE (10:30)
[2019-01-26] MEDS ORDERED: normal saline 1000ml 1,000 ML IV ONE (10:30)
[2019-01-26] MEDS ORDERED: ondansetron/PF 4mg/2ml inj IV ONE (10:30)
[2019-01-26] MEDS ORDERED: loperamide 2mg capsule PO ONE (10:30)
[2019-01-26 11:02] LABS: ALANINE AMINOTRANSFERASE 38 U/L (12-78); ALBUMIN 3.6 G/DL (3.4-5.0); ALBUMIN/GLOBULIN RATIO 0.9 (1.1-1.5); ALKALINE PHOSPHATASE 131 IU/L (46-116); ANION GAP 11 (8-16); ASPARTATE AMINO TRANSFERASE 40 U/L (10-37); BILIRUBIN,TOTAL 0.7 MG/DL (0.1-1.0); BLOOD UREA NITROGEN 8 MG/DL (7-18); BUN/CREATININE RATIO 7.1 (6.6-38.0); CALCIUM 9.8 MG/DL (8.5-10.1); CHLORIDE 105 MMOL/L (99-107); CREATININE 1.12 MG/DL (0.40-0.90); GLUCOSE 123 MG/DL (70-104); POTASSIUM 3.2 MMOL/L (3.5-5.1); SODIUM 141 MMOL/L (135-145); TOTAL CARBON DIOXIDE 24.6 MMOL/L (24-32); TOTAL PROTEIN 7.6 G/DL (6.4-8.2); eGFR 58 ML/MIN
[2019-01-26 11:06] LABS: BASOPHILS % (AUTO) 0.9 % (0-1); EOSINOPHILS # (AUTO) 0.1 X10'3 (0-0.9); LYMPHOCYTES # (AUTO) 1.3 X10'3 (1.1-4.8); MEAN CORPUSCULAR VOLUME 89.7 FL (78-98); MONOCYTES # (AUTO) 0.5 X10'3 (0-0.9)
[2019-01-26 11:08] LABS: EOSINOPHILS % (AUTO) 1.3 % (0-6); HEMATOCRIT 47.7 % (35.0-45.0); HEMOGLOBIN 16.8 g/dl (12.0-16.0); LYMPHOCYTES % (AUTO) 24.3 % (21-51); MEAN CORPUSCULAR HEMOGLOBIN 31.6 PG (27.0-31.0); MEAN CORPUSCULAR HGB CONC 35.3 g/dL (33.0-36.5); MEAN PLATELET VOLUME 8.9 FL (7.4-10.4); MONOCYTES % (AUTO) 9.8 % (2-12); NEUTROPHILS # (AUTO) 3.3 X10'3 (1.8-7.7); NEUTROPHILS % (AUTO) 63.7 % (42-75); PLATELET COUNT 210 X10'3 (140-440); RED BLOOD COUNT 5.32 X10'6 (4.20-5.60); WHITE BLOOD COUNT 5.2 X10'3 (4.5-11.0)
[2019-01-26 11:45] LABS: CLARITY,URINE CLEAR (Clear); COLOR,URINE YELLOW (Yellow); GLUCOSE, URINE NEGATIVE (Neg); KETONES,URINE NEGATIVE (Neg); LEUKOCYTE ESTERASE ,URINE NEGATIVE (Neg); NITRITES, URINE NEGATIVE (Neg); OCCULT BLOOD,URINE NEGATIVE (Neg); PH,URINE 8.5 (4.8-8.0); PROTEIN,URINE 30 mg/dl (Neg)
[2019-01-26 11:46] LABS: UA COLLECTION TYPE STRAIGHT CATH
[2019-01-26] MEDS ORDERED: ONDA4TAB6 PO (11:51)
[2019-01-26] MEDS ORDERED: LOPE-155 PO (11:51)
[2019-01-26 12:01] VITALS: BP 124/51
[2019-01-26 12:01] LABS: HYALINE CASTS 0-3 /LPF (NEGATIVE); MUCUS STRANDS MODERATE /LPF (Neg); SQUAMOUS EPITHELIAL CELL,UR NONE SEEN /LPF (FEW)
[2019-01-26 12:03] LABS: BACTERIA,URINE FEW /HPF (Neg); RBC,URINE 0-2 /HPF (0-2); RENAL CELLS, URINE FEW /HPF; TRANSITIONAL EPI CELLS,URINE FEW /HPF; WBC,URINE 0-4 /HPF (0-4)
[2019-01-27] MEDS ORDERED: CEPH250T PO (10:05)
[2019-01-27] MEDS ORDERED: HYDR-4383 PO (11:36)
[2019-01-27] MEDS ORDERED: MAG355OR18 PO (11:36)
== END 2019-01-26 12:09 | disposition home or self-care (01) ==
LOC: ER 10:03
DX: R11.2 Nausea with vomiting, unspecified (principal); E78.00 Pure hypercholesterolemia, unspecified; J44.9 Chronic obstructive pulmonary disease, unspecified; K21.9 Gastro-esophageal reflux disease without esophagitis; E11.9 Type 2 diabetes mellitus without complications; M19.90 Unspecified osteoarthritis, unspecified site; G89.29 Other chronic pain; E11.42 Type 2 diabetes mellitus with diabetic polyneuropathy; Z95.5 Presence of coronary angioplasty implant and graft; Z90.49 Acquired absence of other specified parts of digestive tract; Z90.710 Acquired absence of both cervix and uterus; Z98.890 Other specified postprocedural states; Z79.899 Other long term (current) drug therapy; Z88.5 Allergy status to narcotic agent; Z79.82 Long term (current) use of aspirin
CPT/HCPCS: 36415; 80053; 81001; 85025; 85610; 96361; 96374; 96375; 99284; J1200; J2405; J7030; P9612

== ENCOUNTER 2019-02-24 00:24 | Observation (INO) | payer MEDICARE, MEDICAID ==
[~2019-02-24] VITALS: Ht 167.6 cm; Wt 90.7 kg
[~2019-02-24 00:24] MED LIST changes: +CEPH500C5 PO; -DULO20CA50 PO; -DULO60CA64 PO; +DULO60CA65 PO; -FERR324T; +HYDR-3965 PO; +HYDR-4383 PO; -LACT-28 PO; -LOPE-144 PO; +LOPE-155 PO; +MAG355OR18 PO; -ONDA4TAB12 PO; +ONDA4TAB6 PO; -POTA20TA19 PO; -PROM12.512 PO; -SYN0.088T PO; -THI100T PO
[2019-02-24] MEDS ORDERED: normal saline 1000ML IV soln IVB ONE (00:45)
[2019-02-24 01:42] LABS: ALANINE AMINOTRANSFERASE 17 U/L (12-78); ALBUMIN 2.8 G/DL (3.4-5.0); ALBUMIN/GLOBULIN RATIO 0.9 (1.1-1.5); ALKALINE PHOSPHATASE 103 IU/L (46-116); ANION GAP 10 (8-16); ASPARTATE AMINO TRANSFERASE 23 U/L (10-37); BILIRUBIN,TOTAL 0.2 MG/DL (0.1-1.0); BLOOD UREA NITROGEN 8 MG/DL (7-18); BUN/CREATININE RATIO 5.6 (6.6-38.0); CALCIUM 8.8 MG/DL (8.5-10.1); CHLORIDE 108 MMOL/L (99-107); CREATININE 1.42 MG/DL (0.40-0.90); GLUCOSE 84 MG/DL (70-104); POTASSIUM 3.1 MMOL/L (3.5-5.1); SODIUM 142 MMOL/L (135-145); TOTAL CARBON DIOXIDE 23.6 MMOL/L (24-32); TOTAL PROTEIN 5.9 G/DL (6.4-8.2); eGFR 44 ML/MIN
[2019-02-24 01:50] LABS: MAGNESIUM 2.2 MG/DL (1.5-2.4)
--- NOTE | 2019-02-24 01:54 | NUR ---
PER PATEE PT OFF TRAUMA
[2019-02-24 02:35] LABS: BASOPHILS % (AUTO) 0.5 % (0-1); EOSINOPHILS # (AUTO) 0.2 X10'3 (0-0.9); EOSINOPHILS % (AUTO) 3.2 % (0-6); HEMATOCRIT 38.5 % (35.0-45.0); HEMOGLOBIN 12.8 g/dl (12.0-16.0); LYMPHOCYTES # (AUTO) 2.1 X10'3 (1.1-4.8); LYMPHOCYTES % (AUTO) 38.8 % (21-51); MEAN CORPUSCULAR HEMOGLOBIN 31.4 PG (27.0-31.0); MEAN CORPUSCULAR HGB CONC 33.3 g/dL (33.0-36.5); MEAN CORPUSCULAR VOLUME 94.1 FL (78-98); MEAN PLATELET VOLUME 8.8 FL (7.4-10.4); MONOCYTES # (AUTO) 0.6 X10'3 (0-0.9); MONOCYTES % (AUTO) 11.3 % (2-12); NEUTROPHILS # (AUTO) 2.5 X10'3 (1.8-7.7); NEUTROPHILS % (AUTO) 46.2 % (42-75); PLATELET COUNT 206 X10'3 (140-440); RED BLOOD COUNT 4.09 X10'6 (4.20-5.60); RED CELL DISTRIBUTION WIDTH 15.4 % (11.5-14.5); WHITE BLOOD COUNT 5.3 X10'3 (4.5-11.0)
[2019-02-24] MEDS ORDERED: ondansetron/PF 4mg/2ml inj IV PRN (03:30)
[2019-02-24] MEDS ORDERED: magnesium hydroxide 30ml (MOM) UD suspension PO PRN (03:30)
[2019-02-24] MEDS ORDERED: acetaminophen 325mg tablet PO PRN (03:30)
[2019-02-24] MEDS ORDERED: mag hydrox/Alum hydrox/simeth 30ml oral suspension PO PRN ×2 (03:30→09:10)
[2019-02-24] MEDS ORDERED: potassium Cl 20 mEq SR tablet PO PRN (05:50)
[2019-02-24] MEDS ORDERED: potassium CL 10mEq/100ml bag 100 ML IV PRN (05:50)
[2019-02-24 06:00] VITALS: BP 144/70
--- NOTE | 2019-02-24 06:00 | NUR ---
Patient in room ORTHO 4012. I have received report from Ariane OWENS and had the opportunity to ask questions and assume patient care.
[2019-02-24] MEDS: normal saline 1000ml 1,000 ML IV SCH ×2 (06:50→15:39)
--- NOTE | 2019-02-24 06:55 | NUR ---
Problems reprioritized. Patient report given, questions answered & plan of care reviewed with LUZ
[2019-02-24 08:14] LABS: POTASSIUM 3.4 MMOL/L (3.5-5.1)
[2019-02-24] MEDS: potassium Cl 20 mEq SR tablet PO PRN ×2 (08:42→15:39)
[2019-02-24] MEDS: heparin, porcine 5000 units/ml vial SQ SCH ×2 (08:42→22:04)
[2019-02-24] MEDS ORDERED: ondansetron 4mg rapidly disintigrating tab PO PRN (09:10)
[2019-02-24 10:00] VITALS: BP 131/65
[2019-02-24 10:30] VITALS: BP_SYST 142; BP_SYST 150; BP_SYST 162; BP_DIAS 72; BP_DIAS 79; BP_DIAS 80
--- NOTE | 2019-02-24 12:13 | NUR ---
PAGER ID: [phone] MESSAGE: RE: [phone] Kayla Salmeron. Patient complaints of 9/10 pain. Can you order something for pain? At home patient takes [place] 5 and tramadol. Thanks [phone] [phone]
[2019-02-24] MEDS ORDERED: HYDROcodone/acetaminophen 5mg/325mg tablet PO PRN (12:15)
[2019-02-24] MEDS ORDERED: HYDROcodone/acetaminophen 10/325mg tab PO PRN (12:15)
[2019-02-24] MEDS: pregabalin 75mg capsule PO SCH (15:46)
[2019-02-24 18:00] VITALS: BP 156/87
--- NOTE | 2019-02-24 18:11 | NUR ---
Problems reprioritized. Patient report given, questions answered & plan of care reviewed with Patricia OWENS.
[2019-02-24] MEDS: potassium CL 20mEq in D5-1/2NS 1,000 ML IV SCH (19:08)
[2019-02-24 20:00] VITALS: BP_SYST 141; BP_SYST 147; BP_SYST 160; BP_DIAS 70; BP_DIAS 82; BP_DIAS 87
[2019-02-24] MEDS ORDERED: mirtazapine 15mg tablet PO SCH (21:00)
[2019-02-24] MEDS ORDERED: atorvastatin 20mg tablet PO SCH (21:00)
[2019-02-24] MEDS: calcium carbonate/vitamin D3 tablet PO SCH (21:48)
[2019-02-24] MEDS: pantoprazole 40mg Tablet.DR PO SCH (21:48)
[2019-02-24] MEDS: magnesium oxide 400mg tablet PO SCH (21:48)
[2019-02-24] MEDS: metoprolol tartrate 25mg tablet PO SCH (21:51)
[2019-02-24 22:00] VITALS: BP 147/70
[2019-02-24] MEDS: diatr meglu/diatrizoate 30ml oral sol.-(3 dose) bottle PO SCH (22:03)
[2019-02-25] MEDS: pregabalin 75mg capsule PO SCH ×2 (00:06→07:53)
[2019-02-25] MEDS: potassium CL 20mEq in D5-1/2NS 1,000 ML IV SCH (03:40)
[2019-02-25 06:00] LABS: BASOPHILS % (AUTO) 0.9 % (0-1); EOSINOPHILS # (AUTO) 0.2 X10'3 (0-0.9); EOSINOPHILS % (AUTO) 5.5 % (0-6); HEMATOCRIT 38.2 % (35.0-45.0); HEMOGLOBIN 12.6 g/dl (12.0-16.0); LYMPHOCYTES # (AUTO) 1.4 X10'3 (1.1-4.8); LYMPHOCYTES % (AUTO) 43.1 % (21-51); MEAN CORPUSCULAR HEMOGLOBIN 31.2 PG (27.0-31.0); MEAN CORPUSCULAR HGB CONC 33.1 g/dL (33.0-36.5); MEAN CORPUSCULAR VOLUME 94.2 FL (78-98); MEAN PLATELET VOLUME 9.1 FL (7.4-10.4); MONOCYTES # (AUTO) 0.3 X10'3 (0-0.9); MONOCYTES % (AUTO) 9.2 % (2-12); NEUTROPHILS # (AUTO) 1.3 X10'3 (1.8-7.7); NEUTROPHILS % (AUTO) 41.3 % (42-75); PLATELET COUNT 151 X10'3 (140-440); RED BLOOD COUNT 4.06 X10'6 (4.20-5.60); RED CELL DISTRIBUTION WIDTH 15.8 % (11.5-14.5); WHITE BLOOD COUNT 3.2 X10'3 (4.5-11.0)
[2019-02-25 06:03] LABS: ALBUMIN 2.5 G/DL (3.4-5.0); ANION GAP 6 (8-16); BLOOD UREA NITROGEN 5 MG/DL (7-18); BUN/CREATININE RATIO 5.7 (6.6-38.0); CALCIUM 8.8 MG/DL (8.5-10.1); CHLORIDE 110 MMOL/L (99-107); CREATININE 0.88 MG/DL (0.40-0.90); GLUCOSE 83 MG/DL (70-104); SODIUM 144 MMOL/L (135-145); TOTAL CARBON DIOXIDE 27.9 MMOL/L (24-32); eGFR 77 ML/MIN
[2019-02-25 07:00] VITALS: BP 135/62
[2019-02-25] MEDS ORDERED: levoTHYROXINE 25mcg tablet PO SCH (07:30)
[2019-02-25] MEDS: diatr meglu/diatrizoate 30ml oral sol.-(3 dose) bottle PO SCH (07:35)
[2019-02-25] MEDS: calcium carbonate/vitamin D3 tablet PO SCH (07:37)
[2019-02-25] MEDS: magnesium oxide 400mg tablet PO SCH (07:39)
[2019-02-25] MEDS: heparin, porcine 5000 units/ml vial SQ SCH (07:46)
[2019-02-25] MEDS: metoprolol tartrate 25mg tablet PO SCH (07:53)
[2019-02-25] MEDS: pantoprazole 40mg Tablet.DR PO SCH (07:53)
[2019-02-25 08:00] VITALS: BP_SYST 129; BP_SYST 135; BP_SYST 140; BP_DIAS 79; BP_DIAS 80; BP_DIAS 93
[2019-02-25] MEDS ORDERED: hydroxychloroquine 200mg tablet PO SCH (08:00)
[2019-02-25] MEDS ORDERED: duloxetine 30mg CAPSULE.DR PO SCH (08:00)
[2019-02-25] MEDS ORDERED: folic acid 0.4mg tablet PO SCH (08:00)
[2019-02-25] MEDS ORDERED: aspirin 81mg tab.chew PO SCH (08:00)
[2019-02-25] MEDS ORDERED: clopidogrel 75mg tablet PO SCH (08:00)
[2019-02-25] MEDS ORDERED: isosorbide mononitrate 30mg tab.SR.24H PO SCH (08:00)
[2019-02-25 09:55] VITALS: BP 135/62
--- NOTE | 2019-02-25 10:10 | NUR ---
Malnutrition consult: Pt admit s/p falls w/ hypotension. Pt hx diarrhea persistent at home pending CT abdomen this AM. Pt has no edema/wounds, no significant weakness noted, all weights pt stated though no wt loss noted, and PO 75% avg first meals this admit. At this time pt does not qualify for malnutrition. Will continue to monitor. Addendum: 02/25/19 at [address] Amended: Links added.
[2019-02-25 11:31] VITALS: BP 140/80
[2019-02-25] MEDS ORDERED: mirtazapine 15mg tablet PO SCH (14:13)
--- NOTE | 2019-02-25 16:22 | NUR ---
patient had CT seen by Dr Ko cleared for discharge. All instructions given to patient. No new meds. patient appeared stable for discharge. Dc home via private car with mother 1500hrs.
== END 2019-02-25 15:00 | disposition home or self-care (01) ==
LOC: ER 00:25 → ORTHO 4S 04:28
PROVIDERS: ADMIT Family Medicine; ATTEND Family Medicine
DX: I95.9 Hypotension, unspecified (principal); N17.9 Acute kidney failure, unspecified; E87.6 Hypokalemia; R19.7 Diarrhea, unspecified; J44.9 Chronic obstructive pulmonary disease, unspecified; E03.9 Hypothyroidism, unspecified; I25.10 Atherosclerotic heart disease of native coronary artery without angina pectoris; E11.42 Type 2 diabetes mellitus with diabetic polyneuropathy; I11.0 Hypertensive heart disease with heart failure; I50.22 Chronic systolic (congestive) heart failure; E78.00 Pure hypercholesterolemia, unspecified; K21.9 Gastro-esophageal reflux disease without esophagitis; M19.90 Unspecified osteoarthritis, unspecified site; G89.29 Other chronic pain; Z90.710 Acquired absence of both cervix and uterus; Z87.442 Personal history of urinary calculi; Z85.3 Personal history of malignant neoplasm of breast; Z90.12 Acquired absence of left breast and nipple; Z86.73 Personal history of transient ischemic attack (TIA), and cerebral infarction without residual deficits; Z79.02 Long term (current) use of antithrombotics/antiplatelets; Z79.899 Other long term (current) drug therapy; Z87.19 Personal history of other diseases of the digestive system; Z90.89 Acquired absence of other organs; Z98.890 Other specified postprocedural states
CPT/HCPCS: 36415; 70450; 74176; 80048; 80053; 82948; 83735; 83880; 84132; 84484; 85025; 86885; 86900; 86901; 87081; 93005; 96361; 96365; 96366; 96372; 97116; 97161; 97530; 99284; G0378; J1644; J3480; J7030; Q9963

== ENCOUNTER 2019-03-10 14:51 | Emergency (ER) | payer MEDICARE, MEDICAID ==
[~2019-03-10] VITALS: Ht 167.6 cm; Wt 85.0 kg
[~2019-03-10 14:51] MED LIST changes: -CEPH500C5 PO; +DOCU-329 PO; -DOCU250C4 PO; -LOPE-155 PO; +LOPE-190 PO; -MAG355OR18 PO; -ONDA4TAB6 PO; -TRAM50TA2 PO
[2019-03-10 15:21] LABS: EOSINOPHILS # (AUTO) 0.1 X10'3 (0-0.9); HEMOGLOBIN 13.8 g/dl (12.0-16.0); MEAN CORPUSCULAR VOLUME 92.3 FL (78-98); MONOCYTES # (AUTO) 0.4 X10'3 (0-0.9); NEUTROPHILS # (AUTO) 2.4 X10'3 (1.8-7.7); WHITE BLOOD COUNT 4.3 X10'3 (4.5-11.0)
[2019-03-10 15:22] LABS: BASOPHILS # (AUTO) 0.1 X10'3 (0-0.2); BASOPHILS % (AUTO) 1.3 % (0-1); EOSINOPHILS % (AUTO) 1.9 % (0-6); LYMPHOCYTES # (AUTO) 1.4 X10'3 (1.1-4.8); LYMPHOCYTES % (AUTO) 31.7 % (21-51); MEAN CORPUSCULAR HGB CONC 33.6 g/dL (33.0-36.5); MONOCYTES % (AUTO) 9.6 % (2-12); NEUTROPHILS % (AUTO) 55.5 % (42-75); PLATELET COUNT 178 X10'3 (140-440); RED BLOOD COUNT 4.44 X10'6 (4.20-5.60); RED CELL DISTRIBUTION WIDTH 15.3 % (11.5-14.5)
[2019-03-10 15:32] LABS: ALANINE AMINOTRANSFERASE 24 U/L (12-78); ALBUMIN 3.3 G/DL (3.4-5.0); ALBUMIN/GLOBULIN RATIO 0.9 (1.1-1.5); ALKALINE PHOSPHATASE 100 IU/L (46-116); ANION GAP 9 (8-16); ASPARTATE AMINO TRANSFERASE 26 U/L (10-37); BILIRUBIN,TOTAL 0.5 MG/DL (0.1-1.0); CALCIUM 9.4 MG/DL (8.5-10.1); CHLORIDE 107 MMOL/L (99-107); GLUCOSE 109 MG/DL (70-104); POTASSIUM 3.8 MMOL/L (3.5-5.1); SODIUM 145 MMOL/L (135-145); TOTAL CARBON DIOXIDE 29.3 MMOL/L (24-32); TOTAL PROTEIN 6.9 G/DL (6.4-8.2)
[2019-03-10 15:34] LABS: LARGE PLATELETS FEW; PLATELET ESTIMATE NORMAL
[2019-03-10 15:41] LABS: BLOOD UREA NITROGEN 4 MG/DL (7-18); CREATININE 0.96 MG/DL (0.40-0.90); eGFR 70 ML/MIN
[2019-03-10 15:46] LABS: BUN/CREATININE RATIO 4.2 (6.6-38.0); PARTIAL THROMBOPLASTIN TIME 34 SECONDS (22-32)
[2019-03-10] MEDS ORDERED: fentaNYL/PF 50MCG/1 ML 2ML syringe IV ONE (16:00)
[2019-03-10] MEDS ORDERED: normal saline 1000ML IV soln IVB ONE (16:00)
[2019-03-10] MEDS ORDERED: ondansetron/PF 4mg/2ml inj IV ONE (16:00)
--- NOTE | 2019-03-10 16:17 | NUR ---
PT MEDICATED PER ORDERS, PT NOW TO CT VIA WHEELCHAIR WITH BIOTECHNOLOGIST PER ORDERS.
[2019-03-10] MEDS ORDERED: iohexol 300mg/ml 100ml inj. ONE (16:18)
[2019-03-10] MEDS ORDERED: metroNIDAZOLE-Flagyl 500mg/NS 100 ML IV STA (16:56)
[2019-03-10 17:19] LABS: CLARITY,URINE CLEAR (Clear); COLOR,URINE YELLOW (Yellow); GLUCOSE, URINE NEGATIVE (Neg); KETONES,URINE NEGATIVE (Neg); LEUKOCYTE ESTERASE ,URINE TRACE (Neg); NITRITES, URINE NEGATIVE (Neg); OCCULT BLOOD,URINE NEGATIVE (Neg); PH,URINE 8.5 (4.8-8.0); PROTEIN,URINE TRACE mg/dl (Neg); UA COLLECTION TYPE CLN CATCH MIDSTREAM; UROBILINOGEN,URINE 0.2 E.U/dL (0.2-1.0)
[2019-03-10 17:24] LABS: BACTERIA,URINE FEW /HPF (Neg); MUCUS STRANDS NONE SEEN /LPF (Neg); RBC,URINE NONE SEEN /HPF (0-2); SQUAMOUS EPITHELIAL CELL,UR FEW /LPF (FEW); WBC CLUMPS,URINE FEW /HPF (NEGATIVE); WBC,URINE 20-30 /HPF (0-4)
[2019-03-10] MEDS ORDERED: METR-159 PO (18:15)
[2019-03-10] MEDS ORDERED: ONDA4TAB6 PO (18:18)
[2019-03-10 18:36] VITALS: BP 168/96
== END 2019-03-10 18:39 | disposition home or self-care (01) ==
LOC: ER 14:52
DX: K52.9 Noninfective gastroenteritis and colitis, unspecified (principal); I11.0 Hypertensive heart disease with heart failure; I50.9 Heart failure, unspecified; E78.00 Pure hypercholesterolemia, unspecified; J44.9 Chronic obstructive pulmonary disease, unspecified; K21.9 Gastro-esophageal reflux disease without esophagitis; E11.9 Type 2 diabetes mellitus without complications; M19.90 Unspecified osteoarthritis, unspecified site; G89.29 Other chronic pain; C50.919 Malignant neoplasm of unspecified site of unspecified female breast; Z98.61 Coronary angioplasty status; Z88.5 Allergy status to narcotic agent; Z79.82 Long term (current) use of aspirin; Z79.899 Other long term (current) drug therapy; Z86.73 Personal history of transient ischemic attack (TIA), and cerebral infarction without residual deficits; Z90.49 Acquired absence of other specified parts of digestive tract; Z90.710 Acquired absence of both cervix and uterus; Z98.890 Other specified postprocedural states
CPT/HCPCS: 36415; 71045; 74177; 80053; 81001; 84484; 85025; 85610; 85730; 93005; 96365; 96375; 99284; J2405; J3010; J3490; J7040; Q9967

== ENCOUNTER 2019-03-16 14:40 | Emergency (ER) | payer MEDICARE, MEDICAID ==
[~2019-03-16] VITALS: Ht 167.6 cm; Wt 75.0 kg
[~2019-03-16 14:40] MED LIST changes: +METR-159 PO; +ONDA4TAB6 PO
[2019-03-16 15:02] LABS: BASOPHILS # (AUTO) 0.1 X10'3 (0-0.2); BASOPHILS % (AUTO) 1.4 % (0-1); EOSINOPHILS # (AUTO) 0.1 X10'3 (0-0.9); EOSINOPHILS % (AUTO) 3.2 % (0-6); HEMATOCRIT 40.2 % (35.0-45.0); HEMOGLOBIN 13.5 g/dl (12.0-16.0); LYMPHOCYTES # (AUTO) 1.3 X10'3 (1.1-4.8); LYMPHOCYTES % (AUTO) 30.3 % (21-51); MEAN CORPUSCULAR HEMOGLOBIN 31.6 PG (27.0-31.0); MEAN CORPUSCULAR HGB CONC 33.7 g/dL (33.0-36.5); MEAN CORPUSCULAR VOLUME 93.7 FL (78-98); MEAN PLATELET VOLUME 8.8 FL (7.4-10.4); MONOCYTES # (AUTO) 0.4 X10'3 (0-0.9); MONOCYTES % (AUTO) 9.2 % (2-12); NEUTROPHILS # (AUTO) 2.4 X10'3 (1.8-7.7); NEUTROPHILS % (AUTO) 55.9 % (42-75); PLATELET COUNT 217 X10'3 (140-440); RED BLOOD COUNT 4.29 X10'6 (4.20-5.60); RED CELL DISTRIBUTION WIDTH 15.1 % (11.5-14.5); WHITE BLOOD COUNT 4.3 X10'3 (4.5-11.0)
[2019-03-16] MEDS ORDERED: ondansetron/PF 4mg/2ml inj IV ONE (15:10)
[2019-03-16] MEDS ORDERED: normal saline 1000ML IV soln IVB ONE (15:10)
[2019-03-16 15:24] LABS: ALANINE AMINOTRANSFERASE 28 U/L (12-78); ALBUMIN 3.3 G/DL (3.4-5.0); ALBUMIN/GLOBULIN RATIO 1.1 (1.1-1.5); ALKALINE PHOSPHATASE 88 IU/L (46-116); ANION GAP 5 (8-16); ASPARTATE AMINO TRANSFERASE 36 U/L (10-37); BILIRUBIN,TOTAL 0.4 MG/DL (0.1-1.0); BLOOD UREA NITROGEN 5 MG/DL (7-18); CALCIUM 9.2 MG/DL (8.5-10.1); CHLORIDE 107 MMOL/L (99-107); CREATININE 1.26 MG/DL (0.40-0.90); GLUCOSE 128 MG/DL (70-104); POTASSIUM 3.6 MMOL/L (3.5-5.1); SODIUM 145 MMOL/L (135-145); TOTAL CARBON DIOXIDE 32.8 MMOL/L (24-32); TOTAL PROTEIN 6.4 G/DL (6.4-8.2); eGFR 51 ML/MIN
[2019-03-16 15:36] LABS: LIPASE 251 U/L (73-393)
[2019-03-16 16:27] LABS: CLARITY,URINE CLEAR (Clear); COLOR,URINE YELLOW (Yellow); GLUCOSE, URINE NEGATIVE (Neg); KETONES,URINE NEGATIVE (Neg); LEUKOCYTE ESTERASE ,URINE NEGATIVE (Neg); NITRITES, URINE NEGATIVE (Neg); OCCULT BLOOD,URINE NEGATIVE (Neg); PROTEIN,URINE NEGATIVE (Neg); UROBILINOGEN,URINE 0.2 E.U/dL (0.2-1.0)
[2019-03-16 16:31] VITALS: BP 114/70
[2019-03-16 16:35] LABS: UA COLLECTION TYPE STRAIGHT CATH
[2019-03-16] MEDS ORDERED: LOPE2CAP PO (16:40)
== END 2019-03-16 17:04 | disposition home or self-care (01) ==
LOC: ER 14:42
DX: K52.9 Noninfective gastroenteritis and colitis, unspecified (principal); M25.552 Pain in left hip; I11.0 Hypertensive heart disease with heart failure; I50.9 Heart failure, unspecified; E78.00 Pure hypercholesterolemia, unspecified; J44.9 Chronic obstructive pulmonary disease, unspecified; K21.9 Gastro-esophageal reflux disease without esophagitis; E11.9 Type 2 diabetes mellitus without complications; M19.90 Unspecified osteoarthritis, unspecified site; G89.29 Other chronic pain; C50.919 Malignant neoplasm of unspecified site of unspecified female breast; Z98.61 Coronary angioplasty status; Z86.73 Personal history of transient ischemic attack (TIA), and cerebral infarction without residual deficits; Z90.710 Acquired absence of both cervix and uterus; Z98.890 Other specified postprocedural states; Z90.49 Acquired absence of other specified parts of digestive tract; Z88.5 Allergy status to narcotic agent; Z79.82 Long term (current) use of aspirin; Z79.899 Other long term (current) drug therapy
CPT/HCPCS: 36415; 73502; 80053; 81003; 82948; 83690; 83880; 85025; 93005; 96374; 99284; J2405; J7040; P9612

== ENCOUNTER 2019-03-18 01:19 | Emergency (ER) | payer MEDICARE, MEDICAID ==
[~2019-03-18] VITALS: Ht 167.6 cm; Wt 88.5 kg
[~2019-03-18 01:19] MED LIST changes: +LOPE2CAP PO
[2019-03-18] MEDS ORDERED: normal saline 1000ML IV soln IVB ONE (01:35)
[2019-03-18 02:51] LABS: CLARITY,URINE CLEAR (Clear); COLOR,URINE YELLOW (Yellow); GLUCOSE, URINE NEGATIVE (Neg); KETONES,URINE NEGATIVE (Neg); LEUKOCYTE ESTERASE ,URINE NEGATIVE (Neg); NITRITES, URINE NEGATIVE (Neg); OCCULT BLOOD,URINE SMALL (Neg); PH,URINE 6.5 (4.8-8.0); PROTEIN,URINE NEGATIVE (Neg); UROBILINOGEN,URINE 0.2 E.U/dL (0.2-1.0)
[2019-03-18 02:58] LABS: UA COLLECTION TYPE OTHER
[2019-03-18 02:59] LABS: BACTERIA,URINE FEW /HPF (Neg); RBC,URINE 0-2 /HPF (0-2); SQUAMOUS EPITHELIAL CELL,UR FEW /LPF (FEW); STARCH,URINE FEW /HPF (NEGATIVE); WBC,URINE NONE SEEN /HPF (0-4)
[2019-03-18 03:23] LABS: BASOPHILS % (AUTO) 0.7 % (0-1); EOSINOPHILS # (AUTO) 0.1 X10'3 (0-0.9); EOSINOPHILS % (AUTO) 2.9 % (0-6); HEMATOCRIT 43.2 % (35.0-45.0); HEMOGLOBIN 14.3 g/dl (12.0-16.0); LYMPHOCYTES # (AUTO) 1.3 X10'3 (1.1-4.8); LYMPHOCYTES % (AUTO) 37.7 % (21-51); MEAN CORPUSCULAR HEMOGLOBIN 31.1 PG (27.0-31.0); MEAN CORPUSCULAR VOLUME 94.1 FL (78-98); MEAN PLATELET VOLUME 8.8 FL (7.4-10.4); MONOCYTES # (AUTO) 0.4 X10'3 (0-0.9); MONOCYTES % (AUTO) 11.5 % (2-12); NEUTROPHILS # (AUTO) 1.7 X10'3 (1.8-7.7); NEUTROPHILS % (AUTO) 47.2 % (42-75); PLATELET COUNT 199 X10'3 (140-440); RED BLOOD COUNT 4.59 X10'6 (4.20-5.60); RED CELL DISTRIBUTION WIDTH 15.4 % (11.5-14.5); WHITE BLOOD COUNT 3.5 X10'3 (4.5-11.0)
[2019-03-18 03:38] LABS: ALANINE AMINOTRANSFERASE 26 U/L (12-78); ALBUMIN 3.6 G/DL (3.4-5.0); ALKALINE PHOSPHATASE 94 IU/L (46-116); ANION GAP 10 (8-16); ASPARTATE AMINO TRANSFERASE 27 U/L (10-37); BILIRUBIN,TOTAL 0.3 MG/DL (0.1-1.0); BLOOD UREA NITROGEN 4 MG/DL (7-18); BUN/CREATININE RATIO 3.7 (6.6-38.0); CALCIUM 8.7 MG/DL (8.5-10.1); CHLORIDE 110 MMOL/L (99-107); CREATININE 1.08 MG/DL (0.40-0.90); ETHANOL 0.184 GM/DL (0.0-0.010); GLUCOSE 99 MG/DL (70-104); POTASSIUM 3.1 MMOL/L (3.5-5.1); SODIUM 147 MMOL/L (135-145); TOTAL CARBON DIOXIDE 27.5 MMOL/L (24-32); TOTAL PROTEIN 7.1 G/DL (6.4-8.2); TROPONIN I < 0.04 NG/ML (0.0-0.05); eGFR 61 ML/MIN
[2019-03-18 04:06] LABS: PARTIAL THROMBOPLASTIN TIME 28 SECONDS (22-32)
[2019-03-18] MEDS ORDERED: potassium Cl 20 mEq SR tablet PO ONE (04:20)
[2019-03-18 04:30] VITALS: BP 117/67
[2019-03-19] MEDS ORDERED: PROC-8 PO (14:34)
== END 2019-03-18 05:04 | disposition home or self-care (01) ==
LOC: ER 01:19
DX: S09.90XA Unspecified injury of head, initial encounter (principal); F10.129 Alcohol abuse with intoxication, unspecified; E11.42 Type 2 diabetes mellitus with diabetic polyneuropathy; I50.9 Heart failure, unspecified; E78.00 Pure hypercholesterolemia, unspecified; I10 Essential (primary) hypertension; J44.9 Chronic obstructive pulmonary disease, unspecified; K21.9 Gastro-esophageal reflux disease without esophagitis; M19.90 Unspecified osteoarthritis, unspecified site; G89.29 Other chronic pain; Z98.61 Coronary angioplasty status; Z90.49 Acquired absence of other specified parts of digestive tract; Z90.710 Acquired absence of both cervix and uterus; Z98.890 Other specified postprocedural states; Z85.3 Personal history of malignant neoplasm of breast; Z88.5 Allergy status to narcotic agent; Z79.82 Long term (current) use of aspirin; Z79.899 Other long term (current) drug therapy; W18.39XA Other fall on same level, initial encounter; Y93.01 Activity, walking, marching and hiking; Y92.89 Other specified places as the place of occurrence of the external cause; Y99.8 Other external cause status; Y90.0 Blood alcohol level of less than 20 mg/100 ml
CPT/HCPCS: 36415; 70450; 71045; 73502; 80053; 80320; 81001; 84484; 85025; 85610; 85730; 93005; 96360; 99284; J7030

== ENCOUNTER 2019-03-19 12:24 | Emergency (ER) | payer MEDICARE, MEDICAID ==
[~2019-03-19] VITALS: Ht 165.1 cm; Wt 87.0 kg
[2019-03-19] MEDS ORDERED: normal saline 1000ML IV soln IVB ONE (12:35)
[2019-03-19] MEDS ORDERED: ondansetron/PF 4mg/2ml inj IV ONE (12:35)
[2019-03-19 12:53] LABS: BASOPHILS % (AUTO) 0.5 % (0-1); HEMATOCRIT 43.5 % (35.0-45.0); HEMOGLOBIN 14.6 g/dl (12.0-16.0); LYMPHOCYTES # (AUTO) 0.6 X10'3 (1.1-4.8); MEAN CORPUSCULAR HGB CONC 33.6 g/dL (33.0-36.5); MEAN CORPUSCULAR VOLUME 92.5 FL (78-98); MEAN PLATELET VOLUME 8.6 FL (7.4-10.4); MONOCYTES # (AUTO) 0.3 X10'3 (0-0.9); MONOCYTES % (AUTO) 7.5 % (2-12); NEUTROPHILS # (AUTO) 3.3 X10'3 (1.8-7.7); PLATELET COUNT 221 X10'3 (140-440); RED BLOOD COUNT 4.71 X10'6 (4.20-5.60); RED CELL DISTRIBUTION WIDTH 15.3 % (11.5-14.5); WHITE BLOOD COUNT 4.3 X10'3 (4.5-11.0)
[2019-03-19 13:06] LABS: ALANINE AMINOTRANSFERASE 32 U/L (12-78); ALBUMIN 3.3 G/DL (3.4-5.0); ALKALINE PHOSPHATASE 103 IU/L (46-116); ANION GAP 7 (8-16); ASPARTATE AMINO TRANSFERASE 54 U/L (10-37); BILIRUBIN,TOTAL 0.6 MG/DL (0.1-1.0); BLOOD UREA NITROGEN 3 MG/DL (7-18); CALCIUM 9.1 MG/DL (8.5-10.1); CHLORIDE 108 MMOL/L (99-107); GLUCOSE 114 MG/DL (70-104); LIPASE 61 U/L (73-393); POTASSIUM 3.3 MMOL/L (3.5-5.1); SODIUM 145 MMOL/L (135-145); TOTAL CARBON DIOXIDE 29.8 MMOL/L (24-32); TOTAL PROTEIN 6.7 G/DL (6.4-8.2); eGFR 66 ML/MIN
[2019-03-19] MEDS ORDERED: POTASSIUM BICARB 20meq eff tab 20 MEQ TABLET.EFF PO ONE (13:30)
[2019-03-19] MEDS ORDERED: PROC-8 PO (14:34)
[2019-03-19] MEDS ORDERED: proCHLORperazine 10 MG/2 ml inj IV ONE (14:35)
[2019-03-19 15:47] VITALS: BP 167/93
== END 2019-03-19 15:49 | disposition home or self-care (01) ==
LOC: ER 12:25
DX: E87.6 Hypokalemia (principal); R11.2 Nausea with vomiting, unspecified; R19.7 Diarrhea, unspecified; E78.00 Pure hypercholesterolemia, unspecified; J44.9 Chronic obstructive pulmonary disease, unspecified; K21.9 Gastro-esophageal reflux disease without esophagitis; M19.90 Unspecified osteoarthritis, unspecified site; G89.29 Other chronic pain; I11.0 Hypertensive heart disease with heart failure; I50.9 Heart failure, unspecified; E11.42 Type 2 diabetes mellitus with diabetic polyneuropathy; Z86.73 Personal history of transient ischemic attack (TIA), and cerebral infarction without residual deficits; Z95.5 Presence of coronary angioplasty implant and graft; Z90.49 Acquired absence of other specified parts of digestive tract; Z90.710 Acquired absence of both cervix and uterus; Z88.5 Allergy status to narcotic agent; Z79.82 Long term (current) use of aspirin; Z79.899 Other long term (current) drug therapy
CPT/HCPCS: 36415; 80053; 83690; 85025; 96374; 96375; 99283; J0780; J2405; J7030

== ENCOUNTER 2019-03-28 01:57 | Emergency (ER) | payer MEDICARE, MEDICAID ==
[~2019-03-28] VITALS: Ht 167.6 cm; Wt 90.9 kg
[~2019-03-28 01:57] MED LIST changes: -HYDR-3965 PO; -METR-159 PO; +PROC-8 PO
[2019-03-28] MEDS ORDERED: aspirin 81mg tab.chew PO ONE (02:00)
[2019-03-28 02:18] LABS: BASOPHILS % (AUTO) 0.9 % (0-1); EOSINOPHILS # (AUTO) 0.1 X10'3 (0-0.9); EOSINOPHILS % (AUTO) 3.2 % (0-6); HEMATOCRIT 39.1 % (35.0-45.0); LYMPHOCYTES # (AUTO) 1.8 X10'3 (1.1-4.8); LYMPHOCYTES % (AUTO) 41.6 % (21-51); MEAN CORPUSCULAR HEMOGLOBIN 30.9 PG (27.0-31.0); MEAN CORPUSCULAR HGB CONC 33.2 g/dL (33.0-36.5); MEAN CORPUSCULAR VOLUME 93.1 FL (78-98); MEAN PLATELET VOLUME 8.4 FL (7.4-10.4); MONOCYTES # (AUTO) 0.4 X10'3 (0-0.9); MONOCYTES % (AUTO) 10.1 % (2-12); NEUTROPHILS % (AUTO) 44.2 % (42-75); PLATELET COUNT 205 X10'3 (140-440); WHITE BLOOD COUNT 4.4 X10'3 (4.5-11.0)
[2019-03-28 02:30] LABS: ALANINE AMINOTRANSFERASE 75 U/L (12-78); ALBUMIN 3.2 G/DL (3.4-5.0); ALKALINE PHOSPHATASE 144 IU/L (46-116); ANION GAP 6 (8-16); ASPARTATE AMINO TRANSFERASE 144 U/L (10-37); BILIRUBIN,TOTAL 0.2 MG/DL (0.1-1.0); BLOOD UREA NITROGEN 5 MG/DL (7-18); BUN/CREATININE RATIO 4.8 (6.6-38.0); CALCIUM 8.9 MG/DL (8.5-10.1); CHLORIDE 107 MMOL/L (99-107); CREATININE 1.05 MG/DL (0.40-0.90); GLUCOSE 112 MG/DL (70-104); POTASSIUM 3.6 MMOL/L (3.5-5.1); SODIUM 143 MMOL/L (135-145); TOTAL CARBON DIOXIDE 29.6 MMOL/L (24-32); TOTAL PROTEIN 6.4 G/DL (6.4-8.2); eGFR 63 ML/MIN
--- NOTE | 2019-03-28 02:33 | NUR ---
DR MARTINEZ AT BEDSIDE WITH PT
[2019-03-28 02:37] LABS: MAGNESIUM 1.8 MG/DL (1.5-2.4)
[2019-03-28] MEDS ORDERED: mag hydrox/Alum hydrox/simeth 30ml oral suspension PO ONE (02:40)
[2019-03-28] MEDS ORDERED: aspirin 325mg tablet PO ONE (02:40)
[2019-03-28] MEDS ORDERED: famotidine 20mg tablet PO ONE (02:40)
[2019-03-28 06:38] VITALS: BP 131/75
== END 2019-03-28 06:43 | disposition home or self-care (01) ==
LOC: ER 01:57
DX: R07.89 Other chest pain (principal); R06.02 Shortness of breath; R61 Generalized hyperhidrosis; R42 Dizziness and giddiness; E11.42 Type 2 diabetes mellitus with diabetic polyneuropathy; I11.0 Hypertensive heart disease with heart failure; I50.9 Heart failure, unspecified; E78.00 Pure hypercholesterolemia, unspecified; J44.9 Chronic obstructive pulmonary disease, unspecified; K21.9 Gastro-esophageal reflux disease without esophagitis; M19.90 Unspecified osteoarthritis, unspecified site; G89.29 Other chronic pain; F10.99 Alcohol use, unspecified with unspecified alcohol-induced disorder; Z85.3 Personal history of malignant neoplasm of breast; Z86.73 Personal history of transient ischemic attack (TIA), and cerebral infarction without residual deficits; Z98.62 Peripheral vascular angioplasty status; Z90.49 Acquired absence of other specified parts of digestive tract; Z90.710 Acquired absence of both cervix and uterus; Z98.890 Other specified postprocedural states; Z88.5 Allergy status to narcotic agent; Z79.82 Long term (current) use of aspirin; Z79.899 Other long term (current) drug therapy; Y90.9 Presence of alcohol in blood, level not specified
CPT/HCPCS: 36415; 71045; 80053; 83735; 83880; 84484; 85025; 93005; 99284

== ENCOUNTER 2019-03-31 09:42 | Emergency (ER) | payer MEDICARE, MEDICAID ==
[~2019-03-31] VITALS: Ht 167.6 cm; Wt 84.0 kg
[2019-03-31 10:14] LABS: BASOPHILS % (AUTO) 0.6 % (0-1); EOSINOPHILS # (AUTO) 0.1 X10'3 (0-0.9); EOSINOPHILS % (AUTO) 1.2 % (0-6); HEMATOCRIT 48.1 % (35.0-45.0); LYMPHOCYTES # (AUTO) 1.2 X10'3 (1.1-4.8); LYMPHOCYTES % (AUTO) 23.7 % (21-51); MEAN CORPUSCULAR HGB CONC 33.3 g/dL (33.0-36.5); MEAN CORPUSCULAR VOLUME 92.9 FL (78-98); MONOCYTES # (AUTO) 0.5 X10'3 (0-0.9); MONOCYTES % (AUTO) 9.4 % (2-12); NEUTROPHILS # (AUTO) 3.4 X10'3 (1.8-7.7); NEUTROPHILS % (AUTO) 65.1 % (42-75); PLATELET COUNT 191 X10'3 (140-440); RED BLOOD COUNT 5.17 X10'6 (4.20-5.60); WHITE BLOOD COUNT 5.2 X10'3 (4.5-11.0)
[2019-03-31] MEDS ORDERED: morphine 4 MG/ML inj SYRINge IV ONE (10:15)
[2019-03-31] MEDS ORDERED: ondansetron/PF 4mg/2ml inj IV ONE (10:15)
[2019-03-31 10:37] LABS: ALANINE AMINOTRANSFERASE 60 U/L (12-78); ALBUMIN 3.7 G/DL (3.4-5.0); ALKALINE PHOSPHATASE 152 IU/L (46-116); ANION GAP 13 (8-16); ASPARTATE AMINO TRANSFERASE 55 U/L (10-37); BILIRUBIN,TOTAL 0.6 MG/DL (0.1-1.0); BLOOD UREA NITROGEN 5 MG/DL (7-18); BUN/CREATININE RATIO 5.2 (6.6-38.0); CALCIUM 9.5 MG/DL (8.5-10.1); CHLORIDE 106 MMOL/L (99-107); CREATININE 0.96 MG/DL (0.40-0.90); GLUCOSE 113 MG/DL (70-104); POTASSIUM 3.7 MMOL/L (3.5-5.1); SODIUM 144 MMOL/L (135-145); TOTAL CARBON DIOXIDE 24.7 MMOL/L (24-32); TOTAL PROTEIN 7.5 G/DL (6.4-8.2); eGFR 70 ML/MIN
[2019-03-31] MEDS ORDERED: LORazepam 2 mg/ml vial IV ONE (10:50)
[2019-03-31] MEDS ORDERED: iohexol 350MG/ML 100ml bottle IV ONE (11:17)
--- NOTE | 2019-03-31 11:25 | NUR ---
PT TO CT VIA WHEELCHAIR
--- NOTE | 2019-03-31 11:37 | NUR ---
PT RETURNS FROM CT
[2019-03-31 12:51] VITALS: BP 140/58
== END 2019-03-31 12:54 | disposition home or self-care (01) ==
LOC: ER 09:42
DX: R10.33 Periumbilical pain (principal); R11.2 Nausea with vomiting, unspecified; R19.7 Diarrhea, unspecified; E11.42 Type 2 diabetes mellitus with diabetic polyneuropathy; I11.0 Hypertensive heart disease with heart failure; I50.9 Heart failure, unspecified; E78.00 Pure hypercholesterolemia, unspecified; J44.9 Chronic obstructive pulmonary disease, unspecified; K21.9 Gastro-esophageal reflux disease without esophagitis; M19.90 Unspecified osteoarthritis, unspecified site; G89.29 Other chronic pain; F10.99 Alcohol use, unspecified with unspecified alcohol-induced disorder; Z86.73 Personal history of transient ischemic attack (TIA), and cerebral infarction without residual deficits; Z85.3 Personal history of malignant neoplasm of breast; Z98.61 Coronary angioplasty status; Z90.49 Acquired absence of other specified parts of digestive tract; Z90.710 Acquired absence of both cervix and uterus; Z98.890 Other specified postprocedural states; Z88.5 Allergy status to narcotic agent; Z79.82 Long term (current) use of aspirin; Z79.899 Other long term (current) drug therapy; Y90.9 Presence of alcohol in blood, level not specified
CPT/HCPCS: 36415; 74174; 80053; 85025; 96374; 96375; 99284; J2060; J2270; J2405; Q9967

== ENCOUNTER 2019-04-02 00:59 | Emergency (ER) | payer MEDICARE, MEDICAID ==
[~2019-04-02] VITALS: Ht 167.6 cm; Wt 90.9 kg
[2019-04-02 02:04] LABS: BASOPHILS # (AUTO) 0.1 X10'3 (0-0.2); BASOPHILS % (AUTO) 0.7 % (0-1); EOSINOPHILS # (AUTO) 0.1 X10'3 (0-0.9); EOSINOPHILS % (AUTO) 1.7 % (0-6); HEMATOCRIT 40.4 % (35.0-45.0); HEMOGLOBIN 13.6 g/dl (12.0-16.0); LYMPHOCYTES # (AUTO) 2.4 X10'3 (1.1-4.8); LYMPHOCYTES % (AUTO) 33.1 % (21-51); MEAN CORPUSCULAR HEMOGLOBIN 31.2 PG (27.0-31.0); MEAN CORPUSCULAR HGB CONC 33.6 g/dL (33.0-36.5); MEAN CORPUSCULAR VOLUME 92.8 FL (78-98); MEAN PLATELET VOLUME 8.4 FL (7.4-10.4); MONOCYTES # (AUTO) 0.8 X10'3 (0-0.9); MONOCYTES % (AUTO) 11.5 % (2-12); NEUTROPHILS # (AUTO) 3.8 X10'3 (1.8-7.7); PLATELET COUNT 198 X10'3 (140-440); RED BLOOD COUNT 4.35 X10'6 (4.20-5.60); RED CELL DISTRIBUTION WIDTH 14.6 % (11.5-14.5); WHITE BLOOD COUNT 7.1 X10'3 (4.5-11.0)
[2019-04-02 02:20] LABS: ALANINE AMINOTRANSFERASE 50 U/L (12-78); ALBUMIN 3.5 G/DL (3.4-5.0); ALBUMIN/GLOBULIN RATIO 1.1 (1.1-1.5); ALKALINE PHOSPHATASE 128 IU/L (46-116); ANION GAP 12 (8-16); ASPARTATE AMINO TRANSFERASE 62 U/L (10-37); BILIRUBIN,TOTAL 0.4 MG/DL (0.1-1.0); BLOOD UREA NITROGEN 13 MG/DL (7-18); BUN/CREATININE RATIO 7.3 (6.6-38.0); CALCIUM 9.2 MG/DL (8.5-10.1); CHLORIDE 103 MMOL/L (99-107); CREATININE 1.79 MG/DL (0.40-0.90); GLUCOSE 94 MG/DL (70-104); PARTIAL THROMBOPLASTIN TIME 28 SECONDS (22-32); POTASSIUM 3.3 MMOL/L (3.5-5.1); SODIUM 140 MMOL/L (135-145); TOTAL CARBON DIOXIDE 25.2 MMOL/L (24-32); TOTAL PROTEIN 6.7 G/DL (6.4-8.2); eGFR 34 ML/MIN
--- NOTE | 2019-04-02 02:40 | NUR ---
WARM BLANKET GIVEN. MD ADVISED OF PTS BP - VERBAL FOR 1L BOLUS GIVEN.
[2019-04-02] MEDS ORDERED: normal saline 1000ML IV soln IVB ONE ×3 (02:45→04:45)
[2019-04-02] MEDS ORDERED: magnesium 2GM in 50ml NS 50 ML IV ONE (03:00)
[2019-04-02] MEDS ORDERED: potassium 10mEq/100ml NS w/LIDOcaine (10mg/bag) IV ONE (03:00)
[2019-04-02] MEDS ORDERED: potassium CL 10mEq/100ml bag 100 ML IV ONE (03:05)
--- NOTE | 2019-04-02 03:25 | NUR ---
PT RESTING SUPINE ON GURNEY. NO DISTRESS NOTED. WILL CONTINUE TO MONITOR.
--- NOTE | 2019-04-02 03:31 | NUR ---
MD MADE AWARE OF PTS CONTINUED HYPOTENSION. ORDER FOR ANOTHER 1L NS BOLUS ENTERED AND NOW INFUSING.
--- NOTE | 2019-04-02 04:18 | NUR ---
AT BEDSIDE AND UPDATED ON PLAN OF CARE. PT CONTINUES TO REST. NO DISTRESS NOTED.
--- NOTE | 2019-04-02 04:57 | NUR ---
MD AGAIN MADE AWARE THAT PTS BP CONTINUES TO RUN LOW. 3RD LITER NS ORDERED AND INFUSING.
[2019-04-02 05:25] LABS: ETHANOL < 0.010 GM/DL (0.0-0.010)
--- NOTE | 2019-04-02 05:32 | NUR ---
ASSISTED PT TO BS FOR URINE SAMPLE. PT PLACED BACK IN BED AND SAMPLE SENT TO LAB.
[2019-04-02 05:47] LABS: URINE AMPHETAMINE SCREEN NEGATIVE (Neg); URINE BARBITUATE SCREEN NEGATIVE (Neg); URINE BENZODIAZEPINES SCREEN NEGATIVE (Neg); URINE CANNABINOID SCREEN NEGATIVE (Neg); URINE COCAINE SCREEN NEGATIVE (Neg); URINE METHADONE SCREEN NEGATIVE (Neg); URINE OPIATE SCREEN POSITIVE (Neg); URINE PHENCYCLIDINE SCREEN NEGATIVE (Neg)
[2019-04-02 07:01] VITALS: BP 120/63
--- NOTE | 2019-04-02 07:02 | NUR ---
PT'S AT BEDSIDE. WILL WAIT IN ROOM UNTIL PT CAN GO TO HER DOCTORS APPT AT 8AM. DR ELOISA WIGGINS.
== END 2019-04-02 07:33 | disposition home or self-care (01) ==
LOC: ER 01:01
DX: K52.9 Noninfective gastroenteritis and colitis, unspecified (principal); N17.9 Acute kidney failure, unspecified; E86.0 Dehydration; J44.9 Chronic obstructive pulmonary disease, unspecified; I50.9 Heart failure, unspecified; I11.0 Hypertensive heart disease with heart failure; K21.9 Gastro-esophageal reflux disease without esophagitis; M19.90 Unspecified osteoarthritis, unspecified site; G89.29 Other chronic pain; E11.42 Type 2 diabetes mellitus with diabetic polyneuropathy; Z86.73 Personal history of transient ischemic attack (TIA), and cerebral infarction without residual deficits; Z86.718 Personal history of other venous thrombosis and embolism; Z90.49 Acquired absence of other specified parts of digestive tract; Z90.710 Acquired absence of both cervix and uterus; Z98.890 Other specified postprocedural states; Z98.61 Coronary angioplasty status; Z88.6 Allergy status to analgesic agent; Z79.899 Other long term (current) drug therapy; Z79.82 Long term (current) use of aspirin
CPT/HCPCS: 36415; 71045; 80053; 80305; 80320; 82948; 84484; 85025; 85610; 85730; 93005; 96361; 96365; 96366; 96368; 99284; J3475; J3480; J7030

== ENCOUNTER 2019-04-07 17:08 | Emergency (ER) | payer MEDICARE, MEDICAID ==
[~2019-04-07] VITALS: Ht 167.6 cm; Wt 89.1 kg
[2019-04-07 17:52] LABS: EOSINOPHILS # (AUTO) 0.1 X10'3 (0-0.9); EOSINOPHILS % (AUTO) 3.6 % (0-6); HEMATOCRIT 35.1 % (35.0-45.0); HEMOGLOBIN 11.8 g/dl (12.0-16.0); LYMPHOCYTES # (AUTO) 1.5 X10'3 (1.1-4.8); LYMPHOCYTES % (AUTO) 40.7 % (21-51); MEAN CORPUSCULAR HEMOGLOBIN 31.4 PG (27.0-31.0); MEAN CORPUSCULAR HGB CONC 33.6 g/dL (33.0-36.5); MEAN CORPUSCULAR VOLUME 93.4 FL (78-98); MEAN PLATELET VOLUME 8.5 FL (7.4-10.4); MONOCYTES # (AUTO) 0.5 X10'3 (0-0.9); MONOCYTES % (AUTO) 12.8 % (2-12); NEUTROPHILS # (AUTO) 1.6 X10'3 (1.8-7.7); NEUTROPHILS % (AUTO) 41.9 % (42-75); PLATELET COUNT 178 X10'3 (140-440); RED BLOOD COUNT 3.76 X10'6 (4.20-5.60); RED CELL DISTRIBUTION WIDTH 14.6 % (11.5-14.5); WHITE BLOOD COUNT 3.8 X10'3 (4.5-11.0)
[2019-04-07] MEDS ORDERED: aspirin 81mg tab.chew PO ONE (18:05)
[2019-04-07 18:08] LABS: PARTIAL THROMBOPLASTIN TIME 29 SECONDS (22-32)
[2019-04-07 18:12] LABS: ALANINE AMINOTRANSFERASE 29 U/L (12-78); ALBUMIN 2.8 G/DL (3.4-5.0); ALKALINE PHOSPHATASE 88 IU/L (46-116); ANION GAP 7 (8-16); ASPARTATE AMINO TRANSFERASE 43 U/L (10-37); BILIRUBIN,TOTAL 0.2 MG/DL (0.1-1.0); BLOOD UREA NITROGEN 4 MG/DL (7-18); CALCIUM 8.2 MG/DL (8.5-10.1); CHLORIDE 110 MMOL/L (99-107); CREATININE 1.01 MG/DL (0.40-0.90); GLUCOSE 81 MG/DL (70-104); POTASSIUM 3.6 MMOL/L (3.5-5.1); SODIUM 144 MMOL/L (135-145); TOTAL CARBON DIOXIDE 26.8 MMOL/L (24-32); TOTAL PROTEIN 5.7 G/DL (6.4-8.2); eGFR 66 ML/MIN
[2019-04-07 18:42] VITALS: BP 118/72
== END 2019-04-07 18:44 | disposition home or self-care (01) ==
LOC: ER 17:09
DX: R07.89 Other chest pain (principal); I11.0 Hypertensive heart disease with heart failure; I50.9 Heart failure, unspecified; E78.00 Pure hypercholesterolemia, unspecified; J44.9 Chronic obstructive pulmonary disease, unspecified; K21.9 Gastro-esophageal reflux disease without esophagitis; M19.90 Unspecified osteoarthritis, unspecified site; G89.29 Other chronic pain; C50.919 Malignant neoplasm of unspecified site of unspecified female breast; Z86.73 Personal history of transient ischemic attack (TIA), and cerebral infarction without residual deficits; Z98.61 Coronary angioplasty status; Z90.49 Acquired absence of other specified parts of digestive tract; Z90.710 Acquired absence of both cervix and uterus; Z98.890 Other specified postprocedural states; Z88.5 Allergy status to narcotic agent; Z79.82 Long term (current) use of aspirin; Z79.899 Other long term (current) drug therapy
CPT/HCPCS: 36415; 71045; 80053; 84484; 85025; 85610; 85730; 93005; 99284

== ENCOUNTER 2019-04-10 13:52 | Emergency (ER) | payer MEDICARE, MEDICAID ==
[~2019-04-10] VITALS: Ht 167.6 cm; Wt 90.0 kg
[2019-04-10 15:05] LABS: BASOPHILS % (AUTO) 0.4 % (0-1); EOSINOPHILS # (AUTO) 0.1 X10'3 (0-0.9); EOSINOPHILS % (AUTO) 2.6 % (0-6); HEMATOCRIT 38.2 % (35.0-45.0); HEMOGLOBIN 12.7 g/dl (12.0-16.0); LYMPHOCYTES # (AUTO) 1.2 X10'3 (1.1-4.8); LYMPHOCYTES % (AUTO) 24.2 % (21-51); MEAN CORPUSCULAR HEMOGLOBIN 30.9 PG (27.0-31.0); MEAN CORPUSCULAR HGB CONC 33.3 g/dL (33.0-36.5); MEAN PLATELET VOLUME 8.5 FL (7.4-10.4); MONOCYTES # (AUTO) 0.5 X10'3 (0-0.9); MONOCYTES % (AUTO) 10.4 % (2-12); NEUTROPHILS # (AUTO) 3.2 X10'3 (1.8-7.7); NEUTROPHILS % (AUTO) 62.4 % (42-75); PLATELET COUNT 212 X10'3 (140-440); RED BLOOD COUNT 4.11 X10'6 (4.20-5.60); RED CELL DISTRIBUTION WIDTH 14.9 % (11.5-14.5); WHITE BLOOD COUNT 5.1 X10'3 (4.5-11.0)
[2019-04-10 15:12] LABS: ALBUMIN 3.3 G/DL (3.4-5.0); ANION GAP 6 (8-16); BILIRUBIN,TOTAL 0.3 MG/DL (0.1-1.0); BLOOD UREA NITROGEN 3 MG/DL (7-18); CALCIUM 9.4 MG/DL (8.5-10.1); CHLORIDE 108 MMOL/L (99-107); CREATININE 1.01 MG/DL (0.40-0.90); GLUCOSE 93 MG/DL (70-104); POTASSIUM 4.5 MMOL/L (3.5-5.1); SODIUM 143 MMOL/L (135-145); TOTAL CARBON DIOXIDE 29.4 MMOL/L (24-32); TOTAL PROTEIN 6.3 G/DL (6.4-8.2); eGFR 66 ML/MIN
[2019-04-10 15:13] LABS: ALANINE AMINOTRANSFERASE 53 U/L (12-78); ALBUMIN/GLOBULIN RATIO 1.1 (1.1-1.5); ALKALINE PHOSPHATASE 119 IU/L (46-116); ASPARTATE AMINO TRANSFERASE 72 U/L (10-37)
[2019-04-10] MEDS ORDERED: normal saline 1000ML IV soln IVB ONE (16:20)
[2019-04-10] MEDS ORDERED: metoclopramide 5 mg/ml inj IV ONE (16:20)
[2019-04-10] MEDS ORDERED: pantoprazole 40 MG vial IV ONE (16:20)
[2019-04-10 16:56] LABS: CLARITY,URINE SLIGHTLY CLOUDY (Clear); COLOR,URINE YELLOW (Yellow); GLUCOSE, URINE NEGATIVE (Neg); KETONES,URINE NEGATIVE (Neg); LEUKOCYTE ESTERASE ,URINE SMALL (Neg); NITRITES, URINE NEGATIVE (Neg); OCCULT BLOOD,URINE NEGATIVE (Neg); PROTEIN,URINE NEGATIVE (Neg); UROBILINOGEN,URINE 0.2 E.U/dL (0.2-1.0)
[2019-04-10 16:58] LABS: UA COLLECTION TYPE CLN CATCH MIDSTREAM
[2019-04-10 17:01] LABS: MUCUS STRANDS FEW /LPF (Neg); SQUAMOUS EPITHELIAL CELL,UR FEW /LPF (FEW)
[2019-04-10 17:02] LABS: RBC,URINE 0-2 /HPF (0-2); WBC,URINE 30-50 /HPF (0-4)
[2019-04-10 17:03] LABS: BACTERIA,URINE 1+ /HPF (Neg)
[2019-04-10] MEDS ORDERED: NITR100C6 PO (17:44)
[2019-04-10 17:52] LABS: C DIFF SPECIMEN=DIARRHEA? ACCEPTABLE; C DIFFICILE TOXINS A&B NEGATIVE (Neg)
[2019-04-10 17:53] LABS: C DIFF ANTIGEN NEGATIVE (NEGATIVE)
[2019-04-10 18:10] VITALS: BP 150/85
== END 2019-04-10 18:12 | disposition home or self-care (01) ==
LOC: ER 13:53
DX: N39.0 Urinary tract infection, site not specified (principal); R11.10 Vomiting, unspecified; R19.7 Diarrhea, unspecified; I11.0 Hypertensive heart disease with heart failure; I50.9 Heart failure, unspecified; E78.00 Pure hypercholesterolemia, unspecified; J44.9 Chronic obstructive pulmonary disease, unspecified; K21.9 Gastro-esophageal reflux disease without esophagitis; E11.9 Type 2 diabetes mellitus without complications; M19.90 Unspecified osteoarthritis, unspecified site; G89.29 Other chronic pain; C50.919 Malignant neoplasm of unspecified site of unspecified female breast; Z86.73 Personal history of transient ischemic attack (TIA), and cerebral infarction without residual deficits; Z98.61 Coronary angioplasty status; Z90.49 Acquired absence of other specified parts of digestive tract; Z90.710 Acquired absence of both cervix and uterus; Z98.890 Other specified postprocedural states; Z87.891 Personal history of nicotine dependence; Z79.82 Long term (current) use of aspirin; Z88.5 Allergy status to narcotic agent; Z79.899 Other long term (current) drug therapy
CPT/HCPCS: 36415; 80053; 81001; 85025; 85610; 87088; 87324; 87449; 96361; 96374; 96375; 99284; C9113; J2765; J7030

== ENCOUNTER 2019-04-13 16:53 | Observation (INO) | payer MEDICARE, MEDICAID ==
[~2019-04-13] VITALS: Ht 167.6 cm; Wt 85.6 kg
[~2019-04-13 16:53] MED LIST changes: +NITR100C6 PO
[2019-04-13 17:24] LABS: BASOPHILS % (AUTO) 0.9 % (0-1); EOSINOPHILS # (AUTO) 0.1 X10'3 (0-0.9); EOSINOPHILS % (AUTO) 2.5 % (0-6); HEMATOCRIT 35.6 % (35.0-45.0); LYMPHOCYTES # (AUTO) 1.8 X10'3 (1.1-4.8); LYMPHOCYTES % (AUTO) 36.7 % (21-51); MEAN CORPUSCULAR HEMOGLOBIN 31.9 PG (27.0-31.0); MEAN CORPUSCULAR HGB CONC 33.8 g/dL (33.0-36.5); MEAN CORPUSCULAR VOLUME 94.4 FL (78-98); MEAN PLATELET VOLUME 8.6 FL (7.4-10.4); MONOCYTES # (AUTO) 0.6 X10'3 (0-0.9); MONOCYTES % (AUTO) 11.8 % (2-12); NEUTROPHILS # (AUTO) 2.3 X10'3 (1.8-7.7); NEUTROPHILS % (AUTO) 48.1 % (42-75); PLATELET COUNT 199 X10'3 (140-440); RED BLOOD COUNT 3.77 X10'6 (4.20-5.60); RED CELL DISTRIBUTION WIDTH 14.9 % (11.5-14.5); WHITE BLOOD COUNT 4.8 X10'3 (4.5-11.0)
[2019-04-13 17:34] LABS: PARTIAL THROMBOPLASTIN TIME 29 SECONDS (22-32)
[2019-04-13 17:37] LABS: ALANINE AMINOTRANSFERASE 50 U/L (12-78); ALBUMIN 2.9 G/DL (3.4-5.0); ALBUMIN/GLOBULIN RATIO 1.1 (1.1-1.5); ALKALINE PHOSPHATASE 106 IU/L (46-116); ANION GAP 9 (8-16); ASPARTATE AMINO TRANSFERASE 65 U/L (10-37); BILIRUBIN,TOTAL 0.3 MG/DL (0.1-1.0); BLOOD UREA NITROGEN 5 MG/DL (7-18); BUN/CREATININE RATIO 3.8 (6.6-38.0); CALCIUM 8.5 MG/DL (8.5-10.1); CHLORIDE 107 MMOL/L (99-107); CREATININE 1.32 MG/DL (0.40-0.90); GLUCOSE 82 MG/DL (70-104); MAGNESIUM 1.8 MG/DL (1.5-2.4); POTASSIUM 3.4 MMOL/L (3.5-5.1); SODIUM 142 MMOL/L (135-145); TOTAL PROTEIN 5.6 G/DL (6.4-8.2); eGFR 48 ML/MIN
[2019-04-13] MEDS ORDERED: normal saline 1000ml 1,000 ML IV ONE (17:55)
[2019-04-13 18:17] LABS: CLARITY,URINE CLEAR (Clear); COLOR,URINE YELLOW (Yellow); GLUCOSE, URINE NEGATIVE (Neg); KETONES,URINE NEGATIVE (Neg); LEUKOCYTE ESTERASE ,URINE TRACE (Neg); NITRITES, URINE NEGATIVE (Neg); OCCULT BLOOD,URINE NEGATIVE (Neg); PH,URINE 6.5 (4.8-8.0); PROTEIN,URINE NEGATIVE (Neg); UROBILINOGEN,URINE 0.2 E.U/dL (0.2-1.0)
[2019-04-13 18:27] LABS: BACTERIA,URINE NONE SEEN /HPF (Neg); RBC,URINE 0-2 /HPF (0-2); SQUAMOUS EPITHELIAL CELL,UR FEW /LPF (FEW); UA COLLECTION TYPE CLN CATCH MIDSTREAM
[2019-04-13 18:28] LABS: MUCUS STRANDS FEW /LPF (Neg); TRANSITIONAL EPI CELLS,URINE FEW /HPF
[2019-04-13] MEDS ORDERED: LISI-604 PO (19:05)
[2019-04-13] MEDS ORDERED: PROC-8 (19:05)
[2019-04-13] MEDS ORDERED: ONDA4TAB12 PO (19:05)
[2019-04-13] MEDS ORDERED: LEVO50TA8 PO (19:05)
[2019-04-13] MEDS ORDERED: METO-395 PO (19:05)
[2019-04-13] MEDS ORDERED: GABA-532 PO (19:05)
[2019-04-13] MEDS ORDERED: LOPE2TAB25 PO (19:05)
[2019-04-13] MEDS ORDERED: normal saline 1000ml 1,000 ML IV SCH (19:32)
[2019-04-13] MEDS ORDERED: mag hydrox/Alum hydrox/simeth 30ml oral suspension PO PRN (19:35)
[2019-04-13] MEDS ORDERED: ondansetron/PF 4mg/2ml inj IV PRN (19:35)
[2019-04-13] MEDS ORDERED: magnesium hydroxide 30ml (MOM) UD suspension PO PRN (19:35)
[2019-04-13] MEDS ORDERED: acetaminophen 325mg tablet PO PRN (19:35)
[2019-04-13] MEDS ORDERED: loperamide 2mg capsule PO PRN (19:45)
[2019-04-13] MEDS ORDERED: albuterol 2.5 MG/3 ML nebule NEB PRN (20:20)
--- NOTE | 2019-04-13 20:30 | NUR ---
Received report from COMBAT CONTROL MANAGERROMAN Pace.
--- NOTE | 2019-04-13 20:43 | NUR ---
Patient arrived from ER via gurney. A&O, in no distress at this time. SBA to bed and VS taken.
[2019-04-13 20:44] VITALS: BP 149/76
[2019-04-13] MEDS ORDERED: mirtazapine 15mg tablet PO SCH (21:00)
[2019-04-13 22:16] LABS: HEMOGLOBIN A1C 5.5 % (4.5-6.2)
[2019-04-13] MEDS: mirtazapine 15mg tablet PO SCH (22:54)
[2019-04-13] MEDS: atorvastatin 20mg tablet PO SCH (22:54)
[2019-04-13] MEDS: heparin, porcine 5000 units/ml vial SQ SCH (22:55)
[2019-04-13] MEDS: pantoprazole 40mg Tablet.DR PO SCH (22:56)
[2019-04-13] MEDS: HYDROcodone/acetaminophen 5mg/325mg tablet PO PRN (22:58)
[2019-04-13] MEDS: pregabalin 75mg capsule PO SCH (23:59)
[2019-04-14] VITALS: BP 152/79
[2019-04-14] MEDS: HYDROcodone/acetaminophen 5mg/325mg tablet PO PRN ×3 (03:16→19:21)
[2019-04-14 06:10] LABS: BASOPHILS % (AUTO) 0.6 % (0-1); EOSINOPHILS # (AUTO) 0.2 X10'3 (0-0.9); EOSINOPHILS % (AUTO) 4.3 % (0-6); HEMATOCRIT 38.5 % (35.0-45.0); HEMOGLOBIN 12.7 g/dl (12.0-16.0); LYMPHOCYTES # (AUTO) 1.3 X10'3 (1.1-4.8); LYMPHOCYTES % (AUTO) 30.2 % (21-51); MEAN CORPUSCULAR HEMOGLOBIN 31.2 PG (27.0-31.0); MEAN CORPUSCULAR HGB CONC 32.9 g/dL (33.0-36.5); MEAN CORPUSCULAR VOLUME 94.7 FL (78-98); MEAN PLATELET VOLUME 8.9 FL (7.4-10.4); MONOCYTES # (AUTO) 0.4 X10'3 (0-0.9); MONOCYTES % (AUTO) 9.5 % (2-12); NEUTROPHILS # (AUTO) 2.4 X10'3 (1.8-7.7); NEUTROPHILS % (AUTO) 55.4 % (42-75); PLATELET COUNT 176 X10'3 (140-440); RED BLOOD COUNT 4.07 X10'6 (4.20-5.60); RED CELL DISTRIBUTION WIDTH 15.3 % (11.5-14.5); WHITE BLOOD COUNT 4.4 X10'3 (4.5-11.0)
[2019-04-14 06:18] LABS: ALANINE AMINOTRANSFERASE 56 U/L (12-78); ALBUMIN 2.8 G/DL (3.4-5.0); ALBUMIN/GLOBULIN RATIO 0.9 (1.1-1.5); ALKALINE PHOSPHATASE 112 IU/L (46-116); ANION GAP 5 (8-16); ASPARTATE AMINO TRANSFERASE 89 U/L (10-37); BILIRUBIN,TOTAL 0.3 MG/DL (0.1-1.0); BLOOD UREA NITROGEN 8 MG/DL (7-18); BUN/CREATININE RATIO 7.5 (6.6-38.0); CALCIUM 8.9 MG/DL (8.5-10.1); CHLORIDE 109 MMOL/L (99-107); CREATININE 1.06 MG/DL (0.40-0.90); GLUCOSE 87 MG/DL (70-104); SODIUM 145 MMOL/L (135-145); TOTAL CARBON DIOXIDE 30.8 MMOL/L (24-32); TOTAL PROTEIN 5.9 G/DL (6.4-8.2); eGFR 62 ML/MIN
--- NOTE | 2019-04-14 06:30 | NUR ---
Patient in room SUNITA 345. I have received report from ROMAN Santana and had the opportunity to ask questions and assume patient care.
--- NOTE | 2019-04-14 06:35 | NUR ---
Problems reprioritized. Patient report given, questions answered & plan of care reviewed with Salvador OWENS. Addendum: 04/14/19 at 0657 by Esther Goldsmith RN Report given to Manjula OWENS
--- NOTE | 2019-04-14 06:57 | NUR ---
Called MD with results of EkG's and troponins.there were no changes, and no new orders.
[2019-04-14 07:00] VITALS: BP 145/73
[2019-04-14] MEDS: levoTHYROXINE 25mcg tablet PO SCH (07:22)
[2019-04-14] MEDS: aspirin 81mg tab.chew PO SCH (07:22)
[2019-04-14] MEDS: duloxetine 30mg CAPSULE.DR PO SCH (07:23)
[2019-04-14] MEDS: pregabalin 75mg capsule PO SCH ×2 (07:23→15:51)
[2019-04-14] MEDS: docusate sod 250mg capsule PO SCH (07:23)
[2019-04-14] MEDS: hydroxychloroquine 200mg tablet PO SCH (07:24)
[2019-04-14] MEDS: clopidogrel 75mg tablet PO SCH (07:24)
[2019-04-14] MEDS: pantoprazole 40mg Tablet.DR PO SCH ×2 (07:24→19:22)
[2019-04-14] MEDS: heparin, porcine 5000 units/ml vial SQ SCH ×2 (07:25→19:23)
[2019-04-14] MEDS ORDERED: folic acid 0.4mg tablet PO SCH (08:00)
[2019-04-14] MEDS ORDERED: LORazepam 2 mg/ml vial IV PRN (08:30)
[2019-04-14] MEDS ORDERED: LORazepam 1 MG tablet PO PRN (08:30)
[2019-04-14] MEDS ORDERED: haloperidol 5mg tablet PO PRN (08:30)
[2019-04-14] MEDS ORDERED: haloperidol lactate 5mg/ml inj IM PRN (08:30)
[2019-04-14] MEDS: thiamine inj. 100 MG, folic acid inj. 2 MG in normal saline 100ml IV soln 100 ML IV SCH (09:23)
[2019-04-14] MEDS: MVI, adult No.4 with vit. K 10 ML in dextrose 5% water 500ml 500 ML IV SCH ×2 (09:25)
[2019-04-14] MEDS ORDERED: pneumococcal 23-VAL P-sac vacc 25 mcg/0.5ml vial IMVAC ONE (10:00)
[2019-04-14 11:00] VITALS: BP 143/80
--- NOTE | 2019-04-14 14:46 | NUR ---
DM/Malnutrition Consults: Pt A1C <7 and not appropriate for DM ed at this time. Pt admit w/ weakness; current strength normal, trace edema, and skin intact. PO 50-75% avg first meals and current as well as prior wts all pt stated. Pt does not meet minimum malnutrition criteria at this time. Will continue to monitor. Addendum: 04/14/19 at [address] Amended: Links added.
[2019-04-14 16:17] LABS: C DIFF ANTIGEN NEGATIVE (NEGATIVE); C DIFF SPECIMEN=DIARRHEA? ACCEPTABLE; C DIFFICILE TOXINS A&B NEGATIVE (Neg)
--- NOTE | 2019-04-14 18:36 | NUR ---
Problems reprioritized. Patient report given, questions answered & plan of care reviewed with Meghan RN.
[2019-04-14 19:30] VITALS: BP 176/88
[2019-04-14] MEDS: atorvastatin 20mg tablet PO SCH (21:45)
[2019-04-14] MEDS: diatr meglu/diatrizoate 30ml oral sol.-(3 dose) bottle PO SCH (21:45)
[2019-04-14] MEDS: mirtazapine 15mg tablet PO SCH (21:46)
[2019-04-15] VITALS: BP 156/86
[2019-04-15] MEDS: pregabalin 75mg capsule PO SCH ×2 (00:09→07:27)
[2019-04-15] MEDS: HYDROcodone/acetaminophen 5mg/325mg tablet PO PRN ×4 (00:09→13:11)
[2019-04-15 05:25] LABS: BASOPHILS % (AUTO) 0.7 % (0-1); EOSINOPHILS # (AUTO) 0.2 X10'3 (0-0.9); EOSINOPHILS % (AUTO) 5.4 % (0-6); HEMATOCRIT 39.6 % (35.0-45.0); LYMPHOCYTES # (AUTO) 1.1 X10'3 (1.1-4.8); LYMPHOCYTES % (AUTO) 31.6 % (21-51); MEAN CORPUSCULAR HGB CONC 32.8 g/dL (33.0-36.5); MEAN CORPUSCULAR VOLUME 94.6 FL (78-98); MEAN PLATELET VOLUME 9.1 FL (7.4-10.4); MONOCYTES # (AUTO) 0.3 X10'3 (0-0.9); MONOCYTES % (AUTO) 9.4 % (2-12); NEUTROPHILS # (AUTO) 1.9 X10'3 (1.8-7.7); NEUTROPHILS % (AUTO) 52.9 % (42-75); PLATELET COUNT 160 X10'3 (140-440); RED BLOOD COUNT 4.19 X10'6 (4.20-5.60); RED CELL DISTRIBUTION WIDTH 14.7 % (11.5-14.5); WHITE BLOOD COUNT 3.6 X10'3 (4.5-11.0)
[2019-04-15 05:29] LABS: ALANINE AMINOTRANSFERASE 57 U/L (12-78); ALBUMIN 3.1 G/DL (3.4-5.0); ALKALINE PHOSPHATASE 128 IU/L (46-116); ANION GAP 8 (8-16); ASPARTATE AMINO TRANSFERASE 74 U/L (10-37); BILIRUBIN,TOTAL 0.4 MG/DL (0.1-1.0); BLOOD UREA NITROGEN 9 MG/DL (7-18); BUN/CREATININE RATIO 8.3 (6.6-38.0); CALCIUM 9.1 MG/DL (8.5-10.1); CHLORIDE 109 MMOL/L (99-107); CREATININE 1.08 MG/DL (0.40-0.90); GLUCOSE 98 MG/DL (70-104); MAGNESIUM 1.7 MG/DL (1.5-2.4); PHOSPHORUS 4.1 MG/DL (2.3-4.5); POTASSIUM 3.7 MMOL/L (3.5-5.1); SODIUM 147 MMOL/L (135-145); TOTAL CARBON DIOXIDE 30.3 MMOL/L (24-32); TOTAL PROTEIN 6.3 G/DL (6.4-8.2); eGFR 61 ML/MIN
[2019-04-15 07:00] VITALS: BP 140/77
[2019-04-15] MEDS: docusate sod 250mg capsule PO SCH (07:19)
[2019-04-15] MEDS: diatr meglu/diatrizoate 30ml oral sol.-(3 dose) bottle PO SCH ×2 (07:24→10:31)
[2019-04-15] MEDS: duloxetine 30mg CAPSULE.DR PO SCH (07:27)
[2019-04-15] MEDS: aspirin 81mg tab.chew PO SCH (07:27)
[2019-04-15] MEDS: levoTHYROXINE 25mcg tablet PO SCH (07:27)
[2019-04-15] MEDS: hydroxychloroquine 200mg tablet PO SCH (07:28)
[2019-04-15] MEDS: clopidogrel 75mg tablet PO SCH (07:28)
[2019-04-15] MEDS: pantoprazole 40mg Tablet.DR PO SCH (07:28)
[2019-04-15] MEDS: heparin, porcine 5000 units/ml vial SQ SCH (07:29)
[2019-04-15] MEDS: MVI, adult No.4 with vit. K 10 ML in dextrose 5% water 500ml 500 ML IV SCH ×2 (08:00)
[2019-04-15] MEDS: thiamine inj. 100 MG, folic acid inj. 2 MG in normal saline 100ml IV soln 100 ML IV SCH (08:00)
[2019-04-15 11:00] VITALS: BP 129/96
[2019-04-15] MEDS ORDERED: METO25TA6 PO (12:20)
--- NOTE | 2019-04-15 14:56 | NUR ---
Patient discharged home via and taken from unit via wheelchair with x2 staff. PIV removed with cannula intact. Patient alert, oriented and in no apparent distress at time of discharge. Patient took all belongings down with her. Discharge instructions given to patient and time for questions and answers. Patient stated an understanding of instructions. New prescription called into [facility]. All medications including new, continued, and discontinued were discussed with patient. Patient was also provided information on MRSA due to a positive nasal MRSA swab.
[2019-04-16] MEDS ORDERED: thiamine 100mg tablet PO SCH (08:00)
[2019-04-16] MEDS ORDERED: multivitamins, therapeutics tablet PO SCH (08:00)
[2019-04-16] MEDS ORDERED: folic acid 1mg tablet PO SCH (08:00)
== END 2019-04-15 14:59 | disposition home or self-care (01) ==
LOC: ER 16:53 → INTOOBSV 20:42 → SUR 3N 20:42
PROVIDERS: ADMIT Internal Medicine; ATTEND Family Medicine
DX: I95.9 Hypotension, unspecified (principal); R42 Dizziness and giddiness; E03.9 Hypothyroidism, unspecified; J44.9 Chronic obstructive pulmonary disease, unspecified; E87.0 Hyperosmolality and hypernatremia; R19.7 Diarrhea, unspecified; E11.42 Type 2 diabetes mellitus with diabetic polyneuropathy; I11.0 Hypertensive heart disease with heart failure; I50.22 Chronic systolic (congestive) heart failure; E78.00 Pure hypercholesterolemia, unspecified; K21.9 Gastro-esophageal reflux disease without esophagitis; Z79.02 Long term (current) use of antithrombotics/antiplatelets; Z79.890 Hormone replacement therapy; Z79.899 Other long term (current) drug therapy; Z82.49 Family history of ischemic heart disease and other diseases of the circulatory system; Z85.3 Personal history of malignant neoplasm of breast; Z86.73 Personal history of transient ischemic attack (TIA), and cerebral infarction without residual deficits; Z90.710 Acquired absence of both cervix and uterus; Z96.642 Presence of left artificial hip joint; Z23 Encounter for immunization
CPT/HCPCS: 36415; 71045; 74176; 80053; 81001; 82948; 83036; 83605; 83735; 84100; 84145; 84484; 85025; 85610; 85730; 87040; 87045; 87046; 87081; 87088; 87324; 87449; 89055; 90471; 90732; 93005; 94760; 96361; 96365; 96366; 96368; 96372; 99284; G0378; J1644; J3411; J3490; J7060; Q9963; 96360; 99285; J7030

== ENCOUNTER 2019-04-15 20:30 | Emergency (ER) | payer MEDICARE, MEDICAID ==
[~2019-04-15] VITALS: Ht 167.6 cm; Wt 87.9 kg
[~2019-04-15 20:30] MED LIST changes: +GABA-532 PO; +LEVO50TA8 PO; +LISI-604 PO; +LOPE2TAB25 PO; +METO-395 PO; +ONDA4TAB12 PO; +PROC-8
--- NOTE | 2019-04-15 20:46 | NUR ---
BREA OLGUIN AT BEDSIDE.
[2019-04-15] MEDS ORDERED: ondansetron 4mg rapidly disintigrating tab PO ONE (20:50)
[2019-04-15 21:11] LABS: BASOPHILS % (AUTO) 0.6 % (0-1); EOSINOPHILS # (AUTO) 0.2 X10'3 (0-0.9); EOSINOPHILS % (AUTO) 4.3 % (0-6); HEMATOCRIT 38.4 % (35.0-45.0); HEMOGLOBIN 12.9 g/dl (12.0-16.0); LYMPHOCYTES # (AUTO) 1.5 X10'3 (1.1-4.8); LYMPHOCYTES % (AUTO) 30.7 % (21-51); MEAN CORPUSCULAR HEMOGLOBIN 31.4 PG (27.0-31.0); MEAN CORPUSCULAR HGB CONC 33.5 g/dL (33.0-36.5); MEAN CORPUSCULAR VOLUME 93.8 FL (78-98); MONOCYTES # (AUTO) 0.6 X10'3 (0-0.9); MONOCYTES % (AUTO) 11.7 % (2-12); NEUTROPHILS # (AUTO) 2.5 X10'3 (1.8-7.7); NEUTROPHILS % (AUTO) 52.7 % (42-75); PLATELET COUNT 187 X10'3 (140-440); RED CELL DISTRIBUTION WIDTH 14.6 % (11.5-14.5); WHITE BLOOD COUNT 4.8 X10'3 (4.5-11.0)
[2019-04-15 21:25] LABS: ALANINE AMINOTRANSFERASE 55 U/L (12-78); ALBUMIN 3.3 G/DL (3.4-5.0); ALKALINE PHOSPHATASE 132 IU/L (46-116); ANION GAP 9 (8-16); ASPARTATE AMINO TRANSFERASE 72 U/L (10-37); BILIRUBIN,TOTAL 0.2 MG/DL (0.1-1.0); BLOOD UREA NITROGEN 11 MG/DL (7-18); BUN/CREATININE RATIO 8.7 (6.6-38.0); CALCIUM 8.9 MG/DL (8.5-10.1); CHLORIDE 104 MMOL/L (99-107); CREATININE 1.27 MG/DL (0.40-0.90); GLUCOSE 82 MG/DL (70-104); POTASSIUM 3.6 MMOL/L (3.5-5.1); SODIUM 142 MMOL/L (135-145); TOTAL CARBON DIOXIDE 28.9 MMOL/L (24-32); TOTAL PROTEIN 6.6 G/DL (6.4-8.2); eGFR 50 ML/MIN
[2019-04-15 22:03] VITALS: BP 114/60
== END 2019-04-15 22:04 | disposition home or self-care (01) ==
LOC: ER 20:30
DX: R07.89 Other chest pain (principal); G62.9 Polyneuropathy, unspecified; I11.0 Hypertensive heart disease with heart failure; I50.9 Heart failure, unspecified; E78.00 Pure hypercholesterolemia, unspecified; J44.9 Chronic obstructive pulmonary disease, unspecified; K21.9 Gastro-esophageal reflux disease without esophagitis; E11.9 Type 2 diabetes mellitus without complications; M19.90 Unspecified osteoarthritis, unspecified site; G89.29 Other chronic pain; Z98.61 Coronary angioplasty status; Z86.73 Personal history of transient ischemic attack (TIA), and cerebral infarction without residual deficits; Z90.710 Acquired absence of both cervix and uterus; Z98.890 Other specified postprocedural states; Z56.0 Unemployment, unspecified; Z88.5 Allergy status to narcotic agent; Z79.82 Long term (current) use of aspirin; Z79.899 Other long term (current) drug therapy
CPT/HCPCS: 36415; 80053; 84484; 85025; 93005; 99283; 99284

== ENCOUNTER 2019-04-20 19:27 | Emergency (ER) | payer MEDICARE, MEDICAID ==
[~2019-04-20] VITALS: Ht 167.6 cm; Wt 89.8 kg
[~2019-04-20 19:27] MED LIST changes: -ISOS30TA6 PO; -LISI-604 PO; -LOPE2CAP PO; -METO-395 PO; -NITR100C6 PO; -ONDA4TAB9 PO
[2019-04-20 20:47] LABS: CLARITY,URINE CLEAR (Clear); COLOR,URINE YELLOW (Yellow); GLUCOSE, URINE NEGATIVE (Neg); KETONES,URINE NEGATIVE (Neg); LEUKOCYTE ESTERASE ,URINE NEGATIVE (Neg); NITRITES, URINE NEGATIVE (Neg); OCCULT BLOOD,URINE NEGATIVE (Neg); PH,URINE 5.5 (4.8-8.0); PROTEIN,URINE NEGATIVE (Neg); UROBILINOGEN,URINE 0.2 E.U/dL (0.2-1.0)
[2019-04-20 20:48] LABS: BASOPHILS # (AUTO) 0.1 X10'3 (0-0.2); BASOPHILS % (AUTO) 1.1 % (0-1); EOSINOPHILS # (AUTO) 0.2 X10'3 (0-0.9); EOSINOPHILS % (AUTO) 4.2 % (0-6); HEMATOCRIT 36.7 % (35.0-45.0); HEMOGLOBIN 12.5 g/dl (12.0-16.0); LYMPHOCYTES # (AUTO) 1.9 X10'3 (1.1-4.8); LYMPHOCYTES % (AUTO) 40.6 % (21-51); MEAN CORPUSCULAR HEMOGLOBIN 31.6 PG (27.0-31.0); MEAN CORPUSCULAR HGB CONC 33.9 g/dL (33.0-36.5); MEAN CORPUSCULAR VOLUME 93.1 FL (78-98); MEAN PLATELET VOLUME 8.5 FL (7.4-10.4); MONOCYTES # (AUTO) 0.4 X10'3 (0-0.9); MONOCYTES % (AUTO) 9.5 % (2-12); NEUTROPHILS # (AUTO) 2.1 X10'3 (1.8-7.7); NEUTROPHILS % (AUTO) 44.6 % (42-75); PLATELET COUNT 155 X10'3 (140-440); RED BLOOD COUNT 3.94 X10'6 (4.20-5.60); RED CELL DISTRIBUTION WIDTH 14.5 % (11.5-14.5); WHITE BLOOD COUNT 4.6 X10'3 (4.5-11.0)
[2019-04-20 20:53] LABS: UA COLLECTION TYPE CLN CATCH MIDSTREAM
[2019-04-20 21:05] LABS: URINE AMPHETAMINE SCREEN NEGATIVE (Neg); URINE BARBITUATE SCREEN NEGATIVE (Neg); URINE BENZODIAZEPINES SCREEN NEGATIVE (Neg); URINE CANNABINOID SCREEN NEGATIVE (Neg); URINE COCAINE SCREEN NEGATIVE (Neg); URINE METHADONE SCREEN NEGATIVE (Neg); URINE OPIATE SCREEN NEGATIVE (Neg); URINE PHENCYCLIDINE SCREEN NEGATIVE (Neg)
[2019-04-20 21:05] LABS: ACETAMINOPHEN < 2.0 UG/ML (10-30); ALANINE AMINOTRANSFERASE 27 U/L (12-78); ALBUMIN 3.4 G/DL (3.4-5.0); ALBUMIN/GLOBULIN RATIO 1.1 (1.1-1.5); ALKALINE PHOSPHATASE 112 IU/L (46-116); ANION GAP 8 (8-16); ASPARTATE AMINO TRANSFERASE 25 U/L (10-37); BILIRUBIN,TOTAL 0.3 MG/DL (0.1-1.0); BLOOD UREA NITROGEN 5 MG/DL (7-18); BUN/CREATININE RATIO 5.3 (6.6-38.0); CALCIUM 9.5 MG/DL (8.5-10.1); CHLORIDE 105 MMOL/L (99-107); CREATININE 0.95 MG/DL (0.40-0.90); ETHANOL 0.077 GM/DL (0.0-0.010); GLUCOSE 92 MG/DL (70-104); LIPASE 175 U/L (73-393); POTASSIUM 3.8 MMOL/L (3.5-5.1); SODIUM 140 MMOL/L (135-145); TOTAL CARBON DIOXIDE 27.5 MMOL/L (24-32); TOTAL PROTEIN 6.6 G/DL (6.4-8.2); eGFR 70 ML/MIN
[2019-04-20 21:54] VITALS: BP 113/72
== END 2019-04-20 21:51 | disposition home or self-care (01) ==
LOC: ER 19:27
DX: F10.920 Alcohol use, unspecified with intoxication, uncomplicated (principal); R19.7 Diarrhea, unspecified; E11.42 Type 2 diabetes mellitus with diabetic polyneuropathy; I11.0 Hypertensive heart disease with heart failure; I50.9 Heart failure, unspecified; E78.00 Pure hypercholesterolemia, unspecified; J44.9 Chronic obstructive pulmonary disease, unspecified; K21.9 Gastro-esophageal reflux disease without esophagitis; M19.90 Unspecified osteoarthritis, unspecified site; G89.29 Other chronic pain; Z86.73 Personal history of transient ischemic attack (TIA), and cerebral infarction without residual deficits; Z85.3 Personal history of malignant neoplasm of breast; Z56.0 Unemployment, unspecified; Z98.61 Coronary angioplasty status; Z90.49 Acquired absence of other specified parts of digestive tract; Z90.710 Acquired absence of both cervix and uterus; Z98.890 Other specified postprocedural states; Z88.5 Allergy status to narcotic agent; Z79.82 Long term (current) use of aspirin; Z79.899 Other long term (current) drug therapy; Y90.0 Blood alcohol level of less than 20 mg/100 ml
CPT/HCPCS: 36415; 80053; 80305; 80320; 80329; 81003; 83690; 85025; 99284

== ENCOUNTER 2019-04-30 03:00 | Emergency (ER) | payer MEDICARE, MEDICAID ==
[~2019-04-30] VITALS: Ht 167.6 cm; Wt 90.9 kg
[~2019-04-30 03:00] MED LIST changes: -DOCU-329 PO; -LEVO50TA PO; -LOPE-190 PO; -METO25TA6 PO; -ONDA4TAB6 PO; -PROC-8
[2019-04-30 03:43] LABS: BASOPHILS # (AUTO) 0.1 X10'3 (0-0.2); BASOPHILS % (AUTO) 0.8 % (0-1); EOSINOPHILS # (AUTO) 0.2 X10'3 (0-0.9); EOSINOPHILS % (AUTO) 2.2 % (0-6); HEMATOCRIT 34.3 % (35.0-45.0); HEMOGLOBIN 11.5 g/dl (12.0-16.0); LYMPHOCYTES # (AUTO) 1.4 X10'3 (1.1-4.8); LYMPHOCYTES % (AUTO) 20.3 % (21-51); MEAN CORPUSCULAR HEMOGLOBIN 31.3 PG (27.0-31.0); MEAN CORPUSCULAR HGB CONC 33.4 g/dL (33.0-36.5); MEAN CORPUSCULAR VOLUME 93.8 FL (78-98); MEAN PLATELET VOLUME 9.4 FL (7.4-10.4); MONOCYTES # (AUTO) 0.5 X10'3 (0-0.9); MONOCYTES % (AUTO) 7.4 % (2-12); NEUTROPHILS # (AUTO) 4.8 X10'3 (1.8-7.7); NEUTROPHILS % (AUTO) 69.3 % (42-75); PLATELET COUNT 131 X10'3 (140-440); RED BLOOD COUNT 3.66 X10'6 (4.20-5.60); RED CELL DISTRIBUTION WIDTH 14.3 % (11.5-14.5)
[2019-04-30 03:49] LABS: PARTIAL THROMBOPLASTIN TIME 31 SECONDS (22-32)
[2019-04-30 03:52] LABS: ALANINE AMINOTRANSFERASE 30 U/L (12-78); ALBUMIN 3.2 G/DL (3.4-5.0); ALBUMIN/GLOBULIN RATIO 1.1 (1.1-1.5); ALKALINE PHOSPHATASE 113 IU/L (46-116); ANION GAP 8 (8-16); ASPARTATE AMINO TRANSFERASE 25 U/L (10-37); BILIRUBIN,TOTAL 0.3 MG/DL (0.1-1.0); BLOOD UREA NITROGEN 10 MG/DL (7-18); BUN/CREATININE RATIO 10.3 (6.6-38.0); CALCIUM 8.8 MG/DL (8.5-10.1); CHLORIDE 111 MMOL/L (99-107); CREATININE 0.97 MG/DL (0.40-0.90); GLUCOSE 86 MG/DL (70-104); POTASSIUM 3.8 MMOL/L (3.5-5.1); SODIUM 147 MMOL/L (135-145); TOTAL CARBON DIOXIDE 27.6 MMOL/L (24-32); TOTAL PROTEIN 6.2 G/DL (6.4-8.2); eGFR 69 ML/MIN
[2019-04-30 03:53] LABS: ETHANOL < 0.010 GM/DL (0.0-0.010)
--- NOTE | 2019-04-30 05:08 | NUR ---
SPOKE TO DR. REYES. THE PLAN IS TO CONSULT WITH DR. HYLTON REGARDING HER BLOODY STOOLS POST COLONOSCOPY.
--- NOTE | 2019-04-30 06:47 | NUR ---
UP TO BATHROOM WITH WALKER AND HAD APPROX 100 CC DARK RED LIQUID STOOL IN HAT. UA OBTAINED AND SENT TO LAB.
[2019-04-30] MEDS ORDERED: HYDROcodone/acetaminophen 5mg/325mg tablet PO ONE (07:20)
[2019-04-30 07:23] VITALS: BP 170/101
[2019-04-30 07:38] LABS: HEMATOCRIT 33.7 % (35.0-45.0); HEMOGLOBIN 11.3 g/dl (12.0-16.0); MEAN CORPUSCULAR HEMOGLOBIN 31.6 PG (27.0-31.0); MEAN CORPUSCULAR HGB CONC 33.5 g/dL (33.0-36.5); MEAN CORPUSCULAR VOLUME 94.4 FL (78-98); MEAN PLATELET VOLUME 9.3 FL (7.4-10.4); PLATELET COUNT 114 X10'3 (140-440); RED BLOOD COUNT 3.57 X10'6 (4.20-5.60); RED CELL DISTRIBUTION WIDTH 14.3 % (11.5-14.5); WHITE BLOOD COUNT 5.4 X10'3 (4.5-11.0)
[2019-04-30 08:12] LABS: CLARITY,URINE CLEAR (Clear); COLOR,URINE YELLOW (Yellow); GLUCOSE, URINE NEGATIVE (Neg); KETONES,URINE NEGATIVE (Neg); LEUKOCYTE ESTERASE ,URINE NEGATIVE (Neg); NITRITES, URINE NEGATIVE (Neg); OCCULT BLOOD,URINE NEGATIVE (Neg); PROTEIN,URINE NEGATIVE (Neg); UROBILINOGEN,URINE 0.2 E.U/dL (0.2-1.0)
[2019-04-30 08:33] LABS: UA COLLECTION TYPE CLN CATCH MIDSTREAM
[2019-04-30 10:00] LABS: OCCULT BLOOD STOOL POSITIVE (Neg)
== END 2019-04-30 09:58 | disposition home or self-care (01) ==
LOC: ER 03:01
DX: K92.2 Gastrointestinal hemorrhage, unspecified (principal); R42 Dizziness and giddiness; E78.00 Pure hypercholesterolemia, unspecified; J44.9 Chronic obstructive pulmonary disease, unspecified; K21.9 Gastro-esophageal reflux disease without esophagitis; M19.90 Unspecified osteoarthritis, unspecified site; G89.29 Other chronic pain; E11.42 Type 2 diabetes mellitus with diabetic polyneuropathy; Z56.0 Unemployment, unspecified; Z90.49 Acquired absence of other specified parts of digestive tract; Z90.710 Acquired absence of both cervix and uterus; Z98.890 Other specified postprocedural states; Z90.89 Acquired absence of other organs; Z86.73 Personal history of transient ischemic attack (TIA), and cerebral infarction without residual deficits; Z95.5 Presence of coronary angioplasty implant and graft; Z88.5 Allergy status to narcotic agent; Z79.82 Long term (current) use of aspirin; Z79.899 Other long term (current) drug therapy
CPT/HCPCS: 36415; 71045; 80053; 80320; 81003; 82272; 85025; 85027; 85610; 85730; 93005; 99284

== ENCOUNTER 2019-06-23 16:07 | Emergency (ER) | payer MEDICARE, MEDICAID ==
[~2019-06-23] VITALS: Ht 167.6 cm; Wt 90.0 kg
[2019-06-23 16:48] LABS: BASOPHILS % (AUTO) 0.8 % (0-1); EOSINOPHILS # (AUTO) 0.1 X10'3 (0-0.9); EOSINOPHILS % (AUTO) 2.3 % (0-6); HEMATOCRIT 37.2 % (35.0-45.0); HEMOGLOBIN 12.4 g/dl (12.0-16.0); LYMPHOCYTES # (AUTO) 1.7 X10'3 (1.1-4.8); LYMPHOCYTES % (AUTO) 32.5 % (21-51); MEAN CORPUSCULAR HEMOGLOBIN 31.5 PG (27.0-31.0); MEAN CORPUSCULAR HGB CONC 33.4 g/dL (33.0-36.5); MEAN CORPUSCULAR VOLUME 94.4 FL (78-98); MEAN PLATELET VOLUME 9.5 FL (7.4-10.4); MONOCYTES # (AUTO) 0.7 X10'3 (0-0.9); MONOCYTES % (AUTO) 13.4 % (2-12); NEUTROPHILS # (AUTO) 2.7 X10'3 (1.8-7.7); PLATELET COUNT 164 X10'3 (140-440); RED BLOOD COUNT 3.94 X10'6 (4.20-5.60); RED CELL DISTRIBUTION WIDTH 14.8 % (11.5-14.5); WHITE BLOOD COUNT 5.4 X10'3 (4.5-11.0)
[2019-06-23 17:02] LABS: ALANINE AMINOTRANSFERASE 28 U/L (12-78); ALBUMIN 3.8 G/DL (3.4-5.0); ALKALINE PHOSPHATASE 115 IU/L (46-116); ANION GAP 7 (8-16); ASPARTATE AMINO TRANSFERASE 29 U/L (10-37); BILIRUBIN,TOTAL 0.3 MG/DL (0.1-1.0); BLOOD UREA NITROGEN 11 MG/DL (7-18); BUN/CREATININE RATIO 10.3 (6.6-38.0); CHLORIDE 105 MMOL/L (99-107); CREATININE 1.07 MG/DL (0.40-0.90); GLUCOSE 87 MG/DL (70-104); POTASSIUM 4.2 MMOL/L (3.5-5.1); SODIUM 142 MMOL/L (135-145); TOTAL CARBON DIOXIDE 29.6 MMOL/L (24-32); TOTAL PROTEIN 7.5 G/DL (6.4-8.2); eGFR 61 ML/MIN
[2019-06-23] MEDS ORDERED: ringers solution, lacted 1,000 ML IV SCH (18:10)
[2019-06-23] MEDS ORDERED: LORazepam 2 mg/ml vial IV ONE (18:10)
[2019-06-23] MEDS ORDERED: magnesium 2GM in 50ml NS 50 ML IV ONE (18:10)
--- NOTE | 2019-06-23 18:40 | NUR ---
Pt Mag and LR infusions started. Pt with no c/o nausea and no episodes of vomiting or diarrhea noted. Will continue to monitor.
--- NOTE | 2019-06-23 19:29 | NUR ---
TY, THE , CALLED TO CHECK IN ON HIS . HE STATED IF THERE ARE ANY CHANGES OR SHE IS READY TO BE RELEASED OR ADMITED PLEASE GIVE HIM A CALL [phone]
--- NOTE | 2019-06-23 19:42 | NUR ---
Pt resting comfortably in NAD. Magnesium and LR continue to infuse as ordered. Will continue to monitor.
[2019-06-23] MEDS ORDERED: morphine 4 MG/ML inj SYRINge IV ONE (20:00)
[2019-06-23] MEDS ORDERED: LORA-269 PO (20:29)
--- NOTE | 2019-06-23 20:45 | NUR ---
Contacted Nicho, her . He stated "will be there to pick her up in 20-30 minutes"
[2019-06-23 21:14] VITALS: BP 162/111
== END 2019-06-23 21:00 | disposition home or self-care (01) ==
LOC: ER 16:07
DX: F41.9 Anxiety disorder, unspecified (principal); G89.29 Other chronic pain; M62.838 Other muscle spasm; R60.0 Localized edema; E78.00 Pure hypercholesterolemia, unspecified; J44.9 Chronic obstructive pulmonary disease, unspecified; K21.9 Gastro-esophageal reflux disease without esophagitis; M19.90 Unspecified osteoarthritis, unspecified site; I11.0 Hypertensive heart disease with heart failure; I50.9 Heart failure, unspecified; E11.42 Type 2 diabetes mellitus with diabetic polyneuropathy; R19.7 Diarrhea, unspecified; Z86.73 Personal history of transient ischemic attack (TIA), and cerebral infarction without residual deficits; Z95.5 Presence of coronary angioplasty implant and graft; Z90.49 Acquired absence of other specified parts of digestive tract; Z90.710 Acquired absence of both cervix and uterus; Z98.890 Other specified postprocedural states; Z56.0 Unemployment, unspecified; Z88.5 Allergy status to narcotic agent; Z79.82 Long term (current) use of aspirin; Z79.899 Other long term (current) drug therapy
CPT/HCPCS: 36415; 71045; 80053; 84484; 85025; 93005; 96365; 96366; 96375; 99284; J2060; J2270; J3475; J7120

== ENCOUNTER 2019-06-27 13:04 | Emergency (ER) | payer MEDICARE, MEDICAID ==
[~2019-06-27] VITALS: Ht 167.6 cm; Wt 88.6 kg
[~2019-06-27 13:04] MED LIST changes: +LORA-269 PO
[2019-06-27] MEDS ORDERED: normal saline 1000ML IV soln IVB ONE (14:05)
[2019-06-27] MEDS ORDERED: ondansetron/PF 4mg/2ml inj IV ONE (14:05)
[2019-06-27 15:51] VITALS: BP 164/90
== END 2019-06-27 15:53 | disposition home or self-care (01) ==
LOC: ER 13:05
DX: R19.7 Diarrhea, unspecified (principal); R42 Dizziness and giddiness; E78.00 Pure hypercholesterolemia, unspecified; J44.9 Chronic obstructive pulmonary disease, unspecified; K21.9 Gastro-esophageal reflux disease without esophagitis; E11.9 Type 2 diabetes mellitus without complications; M19.90 Unspecified osteoarthritis, unspecified site; G89.29 Other chronic pain; I11.0 Hypertensive heart disease with heart failure; I50.9 Heart failure, unspecified; Z86.73 Personal history of transient ischemic attack (TIA), and cerebral infarction without residual deficits; Z95.5 Presence of coronary angioplasty implant and graft; Z90.49 Acquired absence of other specified parts of digestive tract; Z90.710 Acquired absence of both cervix and uterus; Z98.890 Other specified postprocedural states; Z56.0 Unemployment, unspecified; Z88.5 Allergy status to narcotic agent; Z79.82 Long term (current) use of aspirin; Z79.899 Other long term (current) drug therapy
CPT/HCPCS: 82948; 93005; 96361; 96374; 99284; J2405; J7030

== ENCOUNTER 2019-07-15 16:00 | Inpatient (IN) | payer MEDICARE, MEDICAID ==
[~2019-07-15] VITALS: Ht 167.6 cm; Wt 89.1 kg
[2019-07-15 16:38] LABS: EOSINOPHILS # (AUTO) 0.1 X10'3 (0-0.9); EOSINOPHILS % (AUTO) 3.2 % (0-6); HEMATOCRIT 36.7 % (35.0-45.0); HEMOGLOBIN 12.5 g/dl (12.0-16.0); LYMPHOCYTES # (AUTO) 1.5 X10'3 (1.1-4.8); LYMPHOCYTES % (AUTO) 40.6 % (21-51); MEAN CORPUSCULAR HEMOGLOBIN 31.9 PG (27.0-31.0); MEAN CORPUSCULAR HGB CONC 34.1 g/dL (33.0-36.5); MEAN CORPUSCULAR VOLUME 93.5 FL (78-98); MEAN PLATELET VOLUME 9.2 FL (7.4-10.4); MONOCYTES # (AUTO) 0.4 X10'3 (0-0.9); MONOCYTES % (AUTO) 10.2 % (2-12); NEUTROPHILS # (AUTO) 1.7 X10'3 (1.8-7.7); PLATELET COUNT 164 X10'3 (140-440); RED BLOOD COUNT 3.92 X10'6 (4.20-5.60); WHITE BLOOD COUNT 3.8 X10'3 (4.5-11.0)
[2019-07-15 16:48] LABS: PARTIAL THROMBOPLASTIN TIME 29 SECONDS (22-32)
[2019-07-15 16:49] LABS: ALANINE AMINOTRANSFERASE 21 U/L (12-78); ALBUMIN 3.7 G/DL (3.4-5.0); ALKALINE PHOSPHATASE 100 IU/L (46-116); ANION GAP 8 (8-16); ASPARTATE AMINO TRANSFERASE 28 U/L (10-37); BILIRUBIN,TOTAL 0.2 MG/DL (0.1-1.0); BLOOD UREA NITROGEN 12 MG/DL (7-18); BUN/CREATININE RATIO 11.2 (6.6-38.0); CALCIUM 9.5 MG/DL (8.5-10.1); CHLORIDE 104 MMOL/L (99-107); CREATININE 1.07 MG/DL (0.40-0.90); GLUCOSE 105 MG/DL (70-104); POTASSIUM 3.9 MMOL/L (3.5-5.1); SODIUM 140 MMOL/L (135-145); TOTAL CARBON DIOXIDE 27.6 MMOL/L (24-32); TOTAL PROTEIN 7.4 G/DL (6.4-8.2); eGFR 61 ML/MIN
[2019-07-15 16:53] LABS: TROPONIN I < 0.04 NG/ML (0.0-0.05)
[2019-07-15] MEDS ORDERED: aspirin 325mg tablet PO ONE ×2 (17:10→17:15)
[2019-07-15] MEDS ORDERED: LORazepam 1 MG tablet PO ONE (17:20)
[2019-07-15 17:34] LABS: CLARITY,URINE CLEAR (Clear); COLOR,URINE STRAW (Yellow); GLUCOSE, URINE NEGATIVE (Neg); KETONES,URINE NEGATIVE (Neg); LEUKOCYTE ESTERASE ,URINE SMALL (Neg); NITRITES, URINE NEGATIVE (Neg); OCCULT BLOOD,URINE NEGATIVE (Neg); PROTEIN,URINE NEGATIVE (Neg); UROBILINOGEN,URINE 0.2 E.U/dL (0.2-1.0)
[2019-07-15 17:38] LABS: UA COLLECTION TYPE CLN CATCH MIDSTREAM
[2019-07-15 17:39] LABS: MUCUS STRANDS NONE SEEN /LPF (Neg); SQUAMOUS EPITHELIAL CELL,UR FEW /LPF (FEW); TRANSITIONAL EPI CELLS,URINE FEW /HPF
[2019-07-15 17:40] LABS: RBC,URINE 0-2 /HPF (0-2); WBC,URINE 0-4 /HPF (0-4)
[2019-07-15] MEDS ORDERED: insulin Lispro (HumaLOG) vial - multi-dose SQ SCH (17:40)
[2019-07-15] MEDS ORDERED: magnesium 4gm in 100ml NS 100 ML IV PRN (17:40)
[2019-07-15] MEDS ORDERED: bisacodyl 10mg suppository rectal RC PRN (17:40)
[2019-07-15] MEDS ORDERED: ondansetron/PF 4mg/2ml inj IV PRN (17:40)
[2019-07-15] MEDS: atorvastatin 10mg tablet PO SCH (17:40)
[2019-07-15] MEDS ORDERED: HYDROcodone/acetaminophen 5mg/325mg tablet PO PRN (17:40)
[2019-07-15] MEDS ORDERED: acetaminophen 325mg tablet PO PRN ×2 (17:40)
[2019-07-15] MEDS ORDERED: magnesium 2GM in 50ml NS 50 ML IV PRN (17:40)
[2019-07-15] MEDS ORDERED: MESSAGE TO PHARMACY PO ONE (17:40)
[2019-07-15] MEDS ORDERED: potassium Cl 20 mEq SR tablet PO PRN ×2 (17:40)
[2019-07-15] MEDS ORDERED: diphenhydrAMINE 25mg capsule PO PRN (17:40)
[2019-07-15] MEDS ORDERED: magnesium hydroxide 30ml (MOM) UD suspension PO PRN (17:40)
[2019-07-15] MEDS ORDERED: morphine 2 MG/ML inj. syringe IV PRN ×2 (17:40)
[2019-07-15] MEDS ORDERED: potassium CL 10mEq/100ml bag 100 ML IV PRN ×2 (17:40)
[2019-07-15] MEDS ORDERED: mag hydrox/Alum hydrox/simeth 30ml oral suspension PO PRN (17:40)
[2019-07-15] MEDS ORDERED: dextrose 50%-water 50ml dispensing syringe IV PRN ×2 (17:40)
[2019-07-15] MEDS ORDERED: glucagon, human recombinant 1mg kit SUBCUT PRN (17:40)
[2019-07-15] MEDS ORDERED: dextrose ORAL solution 15 GM/59 ML bottle PO PRN ×2 (17:40)
[2019-07-15] MEDS: K and/or MAG REPLACEMENT MC SCH (17:40)
[2019-07-15] MEDS ORDERED: acetaminophen 650mg rectal suppository RC PRN (17:40)
[2019-07-15] MEDS ORDERED: magnesium Cl slow-release 64mg tablet PO PRN (17:40)
[2019-07-15 17:41] LABS: BACTERIA,URINE NONE SEEN /HPF (Neg); WBC CLUMPS,URINE FEW /HPF (NEGATIVE)
[2019-07-15] MEDS ORDERED: PREG200C28 PO (18:10)
[2019-07-15] MEDS ORDERED: XAL0.005OS EACHEYE (18:10)
[2019-07-15] MEDS ORDERED: ISOS60TA4 PO (18:10)
[2019-07-15] MEDS ORDERED: LISI-604 PO (18:10)
[2019-07-15] MEDS ORDERED: CARV6.253 PO (18:10)
[2019-07-15] MEDS ORDERED: METO25TA6 PO (18:10)
[2019-07-15] MEDS ORDERED: ATOR-2 PO (18:10)
[2019-07-15] MEDS ORDERED: PANT40TA4 PO (18:10)
[2019-07-15] MEDS ORDERED: LEVO88TA7 PO (18:10)
[2019-07-15] MEDS: normal saline 1000ml 1,000 ML IV SCH (18:15)
[2019-07-15 18:26] LABS: CHOL/HDL RATIO 2.2 (0.00-4.99); CHOLESTEROL 154 MG/DL (0-200); HDL CHOLESTEROL 69 MG/DL (35-60); LDL CHOLESTEROL 64 MG/DL (50-100); TRIGLYCERIDES 133 MG/DL (20-135)
[2019-07-15 18:27] LABS: HEMOGLOBIN A1C 5.5 % (4.5-6.2)
--- NOTE | 2019-07-15 20:13 | NUR ---
PT BG WAS 78, GAVE HER CARB CONTROLLED MEAL
[2019-07-15] MEDS: insulin glargine (Lantus) pen - multi-dose SQ SCH (20:16)
--- NOTE | 2019-07-15 20:34 | NUR ---
pt sitting up in bed eating her dinner
[2019-07-15] MEDS: heparin, porcine 5000 units/ml vial SQ SCH (21:13)
[2019-07-15 21:45] VITALS: BP 161/77
--- NOTE | 2019-07-15 21:45 | NUR ---
Pt smokes marijuana occasionally and drinks limerita alcohol 2-3 times per week Addendum: 07/15/19 at 2249 by Margot Su RN Amended: Links added.
[2019-07-16] MEDS: temazepam 15mg capsule PO PRN ×2 (00:32→20:59)
[2019-07-16 01:45] VITALS: BP 135/79
[2019-07-16 05:47] VITALS: BP 164/90
--- NOTE | 2019-07-16 06:23 | NUR ---
REPORT GIVEN TO MATTHEW OWENS
[2019-07-16 07:07] LABS: EOSINOPHILS # (AUTO) 0.1 X10'3 (0-0.9); EOSINOPHILS % (AUTO) 3.3 % (0-6); HEMATOCRIT 37.2 % (35.0-45.0); HEMOGLOBIN 12.4 g/dl (12.0-16.0); LYMPHOCYTES # (AUTO) 1.4 X10'3 (1.1-4.8); LYMPHOCYTES % (AUTO) 43.8 % (21-51); MEAN CORPUSCULAR HEMOGLOBIN 31.4 PG (27.0-31.0); MEAN CORPUSCULAR HGB CONC 33.4 g/dL (33.0-36.5); MEAN PLATELET VOLUME 9.6 FL (7.4-10.4); MONOCYTES # (AUTO) 0.3 X10'3 (0-0.9); MONOCYTES % (AUTO) 10.1 % (2-12); NEUTROPHILS # (AUTO) 1.3 X10'3 (1.8-7.7); NEUTROPHILS % (AUTO) 41.8 % (42-75); PLATELET COUNT 142 X10'3 (140-440); RED BLOOD COUNT 3.96 X10'6 (4.20-5.60); RED CELL DISTRIBUTION WIDTH 15.6 % (11.5-14.5); WHITE BLOOD COUNT 3.1 X10'3 (4.5-11.0)
[2019-07-16 07:33] LABS: ALANINE AMINOTRANSFERASE 19 U/L (12-78); ALBUMIN 3.7 G/DL (3.4-5.0); ALBUMIN/GLOBULIN RATIO 1.1 (1.1-1.5); ALKALINE PHOSPHATASE 88 IU/L (46-116); ANION GAP 10 (8-16); ASPARTATE AMINO TRANSFERASE 27 U/L (10-37); BILIRUBIN,TOTAL 0.4 MG/DL (0.1-1.0); BLOOD UREA NITROGEN 14 MG/DL (7-18); BUN/CREATININE RATIO 13.6 (6.6-38.0); CALCIUM 9.4 MG/DL (8.5-10.1); CHLORIDE 106 MMOL/L (99-107); CHOL/HDL RATIO 2.2 (0.00-4.99); CHOLESTEROL 151 MG/DL (0-200); CREATININE 1.03 MG/DL (0.40-0.90); GLUCOSE 86 MG/DL (70-104); HDL CHOLESTEROL 69 MG/DL (35-60); LDL CHOLESTEROL 61 MG/DL (50-100); MAGNESIUM 1.6 MG/DL (1.5-2.4); PHOSPHORUS 3.3 MG/DL (2.3-4.5); POTASSIUM 3.8 MMOL/L (3.5-5.1); SODIUM 143 MMOL/L (135-145); TOTAL CARBON DIOXIDE 27.3 MMOL/L (24-32); TOTAL PROTEIN 7.2 G/DL (6.4-8.2); TRIGLYCERIDES 150 MG/DL (20-135); eGFR 64 ML/MIN
[2019-07-16] MEDS: K and/or MAG REPLACEMENT MC SCH (08:00)
[2019-07-16] MEDS: aspirin 81mg tablet.DR PO SCH (08:26)
[2019-07-16] MEDS: atorvastatin 10mg tablet PO SCH (08:27)
[2019-07-16] MEDS: heparin, porcine 5000 units/ml vial SQ SCH ×2 (08:28→19:22)
[2019-07-16] MEDS ORDERED: pneumococcal 23-VAL P-sac vacc 25 mcg/0.5ml vial IMVAC ONE (10:00)
[2019-07-16] MEDS ORDERED: lisinopril 5mg tablet PO SCH (10:05)
[2019-07-16] MEDS ORDERED: aspirin 81mg tab.chew PO SCH (10:05)
--- NOTE | 2019-07-16 10:16 | NUR ---
DM Consult: Pt A1C <7 and not appropriate for DM ed at this time. Addendum: 07/16/19 at [address] Amended: Links added.
--- NOTE | 2019-07-16 12:10 | NUR ---
Student Medication Administration:For this medication-pass time frame 4608-5512, all medications were reviewed, administered and documented per hospital policy by Mona Ruiz. Student documentation:I have reviewed and agree with all interventions, assessments performed and documented by Mona Ruiz.
--- NOTE | 2019-07-16 12:34 | NUR ---
Spoke with Dr Sweet. Informed that MRI is down until further notice. Will repeat non contrast head CT and set up tele neuro exam with SOC after CT completed.
[2019-07-16] MEDS: CefTRIAXone/D5W-Rocephin 1gm 50 ML IV SCH (13:13)
[2019-07-16] MEDS: clopidogrel 75mg tablet PO SCH (13:13)
[2019-07-16] MEDS: pantoprazole 40mg Tablet.DR PO SCH (13:13)
[2019-07-16] MEDS: calcium carbonate/vitamin D3 tablet PO SCH ×2 (13:14→17:59)
[2019-07-16] MEDS: pregabalin 25mg capsule PO SCH ×2 (13:15→20:59)
[2019-07-16] MEDS: gabapentin 300mg capsule PO SCH ×2 (13:15→20:59)
[2019-07-16] MEDS: HYDROcodone/acetaminophen 10/325mg tab PO PRN ×2 (13:19→19:23)
[2019-07-16 14:00] VITALS: BP 160/59
[2019-07-16] MEDS: normal saline 1000ml 1,000 ML IV SCH ×2 (16:21→19:25)
[2019-07-16 18:05] VITALS: BP 171/92
--- NOTE | 2019-07-16 18:15 | NUR ---
RECEIVED REPORT FROM MATTHEW OWENS AND ASSUMED PATIENT CARE
[2019-07-16] MEDS: carvedilol 6.25mg tablet PO SCH (19:22)
[2019-07-16] MEDS: LORazepam 1 MG tablet PO PRN (19:22)
[2019-07-16] MEDS: metoprolol tartrate 25mg tablet PO SCH (19:23)
[2019-07-16] MEDS ORDERED: latanoprost 0.005% 2.5ml ophthalmic drops EACHEYE SCH (21:00)
[2019-07-16] MEDS: insulin glargine (Lantus) pen - multi-dose SQ SCH (21:00)
[2019-07-16 22:00] VITALS: BP 150/86
[2019-07-17] MEDS: HYDROcodone/acetaminophen 10/325mg tab PO PRN ×3 (03:23→14:30)
[2019-07-17] MEDS: LORazepam 1 MG tablet PO PRN (03:55)
[2019-07-17 05:37] LABS: BASOPHILS % (AUTO) 0.8 % (0-1); EOSINOPHILS # (AUTO) 0.1 X10'3 (0-0.9); EOSINOPHILS % (AUTO) 2.2 % (0-6); HEMATOCRIT 38.1 % (35.0-45.0); HEMOGLOBIN 12.9 g/dl (12.0-16.0); LYMPHOCYTES # (AUTO) 1.4 X10'3 (1.1-4.8); LYMPHOCYTES % (AUTO) 35.9 % (21-51); MEAN CORPUSCULAR HEMOGLOBIN 31.5 PG (27.0-31.0); MEAN CORPUSCULAR HGB CONC 33.9 g/dL (33.0-36.5); MEAN CORPUSCULAR VOLUME 92.9 FL (78-98); MEAN PLATELET VOLUME 9.4 FL (7.4-10.4); MONOCYTES # (AUTO) 0.5 X10'3 (0-0.9); NEUTROPHILS # (AUTO) 1.9 X10'3 (1.8-7.7); NEUTROPHILS % (AUTO) 49.1 % (42-75); PLATELET COUNT 156 X10'3 (140-440); RED CELL DISTRIBUTION WIDTH 15.2 % (11.5-14.5); WHITE BLOOD COUNT 3.8 X10'3 (4.5-11.0)
[2019-07-17 05:50] LABS: ALANINE AMINOTRANSFERASE 21 U/L (12-78); ALBUMIN 3.9 G/DL (3.4-5.0); ALBUMIN/GLOBULIN RATIO 1.1 (1.1-1.5); ALKALINE PHOSPHATASE 89 IU/L (46-116); ANION GAP 12 (8-16); ASPARTATE AMINO TRANSFERASE 25 U/L (10-37); BILIRUBIN,TOTAL 0.4 MG/DL (0.1-1.0); BLOOD UREA NITROGEN 16 MG/DL (7-18); BUN/CREATININE RATIO 14.3 (6.6-38.0); CALCIUM 9.9 MG/DL (8.5-10.1); CHLORIDE 105 MMOL/L (99-107); CREATININE 1.12 MG/DL (0.40-0.90); GLUCOSE 95 MG/DL (70-104); MAGNESIUM 1.6 MG/DL (1.5-2.4); PHOSPHORUS 4.1 MG/DL (2.3-4.5); POTASSIUM 3.9 MMOL/L (3.5-5.1); SODIUM 143 MMOL/L (135-145); TOTAL CARBON DIOXIDE 26.1 MMOL/L (24-32); TOTAL PROTEIN 7.5 G/DL (6.4-8.2); eGFR 58 ML/MIN
[2019-07-17 06:00] VITALS: BP 146/89
--- NOTE | 2019-07-17 06:00 | NUR ---
Patient in room ORTHO 4010. I have received report from Susan and had the opportunity to ask questions and assume patient care.
--- NOTE | 2019-07-17 06:24 | NUR ---
REPORT GIVEN TO CAYDEN OWENS
[2019-07-17] MEDS ORDERED: levoTHYROXINE 88mcg tablet PO SCH (07:30)
[2019-07-17] MEDS ORDERED: atorvastatin 20mg tablet PO SCH (08:00)
[2019-07-17] MEDS: K and/or MAG REPLACEMENT MC SCH (08:00)
[2019-07-17] MEDS ORDERED: isosorbide mononitrate 30mg tab.SR.24H PO SCH (08:00)
[2019-07-17] MEDS ORDERED: lisinopril 20mg tablet PO SCH (08:00)
[2019-07-17] MEDS ORDERED: duloxetine 30mg CAPSULE.DR PO SCH (08:00)
[2019-07-17] MEDS: CefTRIAXone/D5W-Rocephin 1gm 50 ML IV SCH (09:01)
[2019-07-17] MEDS: carvedilol 6.25mg tablet PO SCH (09:05)
[2019-07-17] MEDS: aspirin 81mg tablet.DR PO SCH (09:06)
[2019-07-17] MEDS: atorvastatin 10mg tablet PO SCH (09:07)
[2019-07-17] MEDS: metoprolol tartrate 25mg tablet PO SCH (09:07)
[2019-07-17] MEDS: gabapentin 300mg capsule PO SCH ×2 (09:08→12:47)
[2019-07-17] MEDS: clopidogrel 75mg tablet PO SCH (09:08)
[2019-07-17] MEDS: pantoprazole 40mg Tablet.DR PO SCH (09:08)
[2019-07-17] MEDS: pregabalin 25mg capsule PO SCH ×2 (09:08→12:48)
[2019-07-17] MEDS: heparin, porcine 5000 units/ml vial SQ SCH (09:09)
[2019-07-17] MEDS: calcium carbonate/vitamin D3 tablet PO SCH ×2 (09:09→12:46)
[2019-07-17 10:00] VITALS: BP 138/69
[2019-07-17] MEDS ORDERED: CEFD300C3 PO (12:58)
--- NOTE | 2019-07-17 13:15 | NUR ---
Discharge order in. Pt's spouse approached nurse's station to ask if "there was something we could do" regarding her discharge. Pt's spouse stated "it's been like a revolving door" and pt was just in another hospital last week. Spouse indicates he does not want pt to discharge, stating "she'll just be back here next week". Pt's spouse wants pt to go to rehab for "1-2 weeks". Pt's sister and spouse get pt back into hospital gown and inquire regarding pt being able to stay. Pt began to present as disoriented, sleepy and stated she had started having hip pain, ankle pain and wished for those issues to be addressed in regards to having hip surgery. Pt also stated she has a "fear of going home and falling". Paged regarding pt's refusal to discharge. Initiated conversation with pt multiple times. Pt was able to clearly respond, answer questions appropriately, bright eyed, smiling and engaging in conversation. Pt's sister and spouse were not present at this time.
[2019-07-17 14:00] VITALS: BP 141/87
--- NOTE | 2019-07-17 14:34 | NUR ---
PAGER ID: [phone] MESSAGE: Nadira Sweet, Mrs. Salmeron in 4010B is refusing to discharge, indicates she has hip pain, ankle pain and is afraid of falling at home. Spouse is here and does not agree with DC as well Please advise thank you Barby #[phone]
--- NOTE | 2019-07-17 16:15 | NUR ---
Pt walked with PT 300 ft. Pt is able to engage in conversation appropriately. Reviewed discharge instructions with pt. Pt verbalized understanding. Rx called in to [facility] on [address]. Pt was able to ambulate with the FWW, with stand-by assistance to the restroom. Pt was able to dress. All of pt's belongings were returned to pt. Pt is alert, oriented and does not have c/o pain or discomfort at this time. Pt was wheeled downstairs to be driven home by family.
--- NOTE | 2019-07-17 16:47 | NUR ---
PAGER ID: [phone] MESSAGE: Nadira Sweet, pt in 7520B was discharged at 16:23 Thank you Barby #[phone]
== END 2019-07-17 16:25 | disposition home health service (06) | DRG 69 ==
LOC: ER 16:01 → ED HOLD 17:48 → ORTHO 4S 21:34
PROVIDERS: ADMIT Family Medicine; ATTEND Family Medicine
PROC: 3E0234Z Introduction of Serum, Toxoid and Vaccine into Muscle, Percutaneous Approach (ICD-10-PCS; principal; 2019-07-16)
DX: G45.9 Transient cerebral ischemic attack, unspecified (principal); N39.0 Urinary tract infection, site not specified; I50.32 Chronic diastolic (congestive) heart failure; F41.9 Anxiety disorder, unspecified; E11.42 Type 2 diabetes mellitus with diabetic polyneuropathy; E78.00 Pure hypercholesterolemia, unspecified; E03.9 Hypothyroidism, unspecified; E78.5 Hyperlipidemia, unspecified; F32.9 Major depressive disorder, single episode, unspecified; G89.4 Chronic pain syndrome; R25.1 Tremor, unspecified; Z96.642 Presence of left artificial hip joint; E66.9 Obesity, unspecified; M19.90 Unspecified osteoarthritis, unspecified site; I11.0 Hypertensive heart disease with heart failure; J44.9 Chronic obstructive pulmonary disease, unspecified; K21.9 Gastro-esophageal reflux disease without esophagitis; M06.9 Rheumatoid arthritis, unspecified; Z80.3 Family history of malignant neoplasm of breast; Z82.49 Family history of ischemic heart disease and other diseases of the circulatory system; Z85.3 Personal history of malignant neoplasm of breast; Z86.73 Personal history of transient ischemic attack (TIA), and cerebral infarction without residual deficits; Z90.710 Acquired absence of both cervix and uterus; Z79.899 Other long term (current) drug therapy; Z23 Encounter for immunization
CPT/HCPCS: 36415; 70450; 70544; 70551; 71045; 80053; 80061; 81001; 82948; 83036; 83735; 84100; 84484; 85025; 85610; 85651; 85730; 87081; 87088; 90732; 92508; 92616; 93005; 93306; 93880; 97110; 97116; 97163; 97530; 99285; G0378; J0696; J1644; J1815; J7030

== ENCOUNTER 2019-07-22 11:28 | Emergency (ER) | payer MEDICARE, MEDICAID ==
[~2019-07-22] VITALS: Ht 167.6 cm; Wt 90.0 kg
[~2019-07-22 11:28] MED LIST changes: -ALBU18HF2 INH; +ATOR-2 PO; -ATOR80TA PO; +CARV6.253 PO; +CEFD300C3 PO; -FOLI0.4T2 PO; -GABA-532 PO; -HYDR-4383 PO; -HYDR200T84 PO; +ISOS60TA4 PO; -LEVO50TA8 PO; +LEVO88TA7 PO; +LISI-604 PO; -LOPE2TAB25 PO; -LORA-269 PO; -MAGN400T29 PO; -MIRT15TA PO; -ONDA4TAB12 PO; -PANT-47 PO; +PANT40TA4 PO; +PREG200C28 PO; -PREG50CA PO; -PROC-8 PO; +XAL0.005OS EACHEYE
[2019-07-22] MEDS ORDERED: ondansetron/PF 4mg/2ml inj IV ONE (13:05)
[2019-07-22] MEDS ORDERED: normal saline 1000ML IV soln IVB ONE (13:05)
[2019-07-22] MEDS ORDERED: pantoprazole 40 MG vial IV ONE (13:05)
[2019-07-22 13:50] LABS: BASOPHILS % (AUTO) 0.8 % (0-1); EOSINOPHILS # (AUTO) 0.1 X10'3 (0-0.9); EOSINOPHILS % (AUTO) 2.7 % (0-6); HEMATOCRIT 32.5 % (35.0-45.0); HEMOGLOBIN 10.9 g/dl (12.0-16.0); LYMPHOCYTES % (AUTO) 24.2 % (21-51); MEAN CORPUSCULAR HEMOGLOBIN 31.7 PG (27.0-31.0); MEAN CORPUSCULAR HGB CONC 33.6 g/dL (33.0-36.5); MEAN CORPUSCULAR VOLUME 94.5 FL (78-98); MEAN PLATELET VOLUME 9.4 FL (7.4-10.4); MONOCYTES # (AUTO) 0.5 X10'3 (0-0.9); MONOCYTES % (AUTO) 11.8 % (2-12); NEUTROPHILS # (AUTO) 2.5 X10'3 (1.8-7.7); NEUTROPHILS % (AUTO) 60.5 % (42-75); PLATELET COUNT 130 X10'3 (140-440); RED BLOOD COUNT 3.44 X10'6 (4.20-5.60); WHITE BLOOD COUNT 4.1 X10'3 (4.5-11.0)
[2019-07-22 14:04] LABS: ALANINE AMINOTRANSFERASE 23 U/L (12-78); ALBUMIN 3.3 G/DL (3.4-5.0); ALBUMIN/GLOBULIN RATIO 1.1 (1.1-1.5); ALKALINE PHOSPHATASE 99 IU/L (46-116); ANION GAP 5 (8-16); ASPARTATE AMINO TRANSFERASE 29 U/L (10-37); BILIRUBIN,TOTAL 0.3 MG/DL (0.1-1.0); BLOOD UREA NITROGEN 11 MG/DL (7-18); BUN/CREATININE RATIO 10.1 (6.6-38.0); CALCIUM 9.6 MG/DL (8.5-10.1); CHLORIDE 108 MMOL/L (99-107); CREATININE 1.09 MG/DL (0.40-0.90); GLUCOSE 85 MG/DL (70-104); POTASSIUM 3.9 MMOL/L (3.5-5.1); SODIUM 143 MMOL/L (135-145); TOTAL CARBON DIOXIDE 30.3 MMOL/L (24-32); TOTAL PROTEIN 6.3 G/DL (6.4-8.2); eGFR 60 ML/MIN
[2019-07-22 15:18] VITALS: BP 141/73
== END 2019-07-22 15:20 | disposition home or self-care (01) ==
LOC: ER 11:29
DX: K92.2 Gastrointestinal hemorrhage, unspecified (principal); D68.9 Coagulation defect, unspecified; F03.90 Unspecified dementia, unspecified severity, without behavioral disturbance, psychotic disturbance, mood disturbance, and anxiety; E11.42 Type 2 diabetes mellitus with diabetic polyneuropathy; I25.10 Atherosclerotic heart disease of native coronary artery without angina pectoris; I50.9 Heart failure, unspecified; E78.00 Pure hypercholesterolemia, unspecified; I11.0 Hypertensive heart disease with heart failure; J44.9 Chronic obstructive pulmonary disease, unspecified; K21.9 Gastro-esophageal reflux disease without esophagitis; M19.90 Unspecified osteoarthritis, unspecified site; G89.29 Other chronic pain; Z85.3 Personal history of malignant neoplasm of breast; Z98.61 Coronary angioplasty status; Z90.49 Acquired absence of other specified parts of digestive tract; Z95.1 Presence of aortocoronary bypass graft; Z90.710 Acquired absence of both cervix and uterus; Z98.890 Other specified postprocedural states; Z56.0 Unemployment, unspecified; Z79.82 Long term (current) use of aspirin; Z79.899 Other long term (current) drug therapy
CPT/HCPCS: 36415; 80053; 85025; 85610; 86885; 86900; 86901; 96374; 96375; 99284; C9113; J2405; J7040

== ENCOUNTER 2019-08-19 07:11 | Emergency (ER) | payer MEDICARE, MEDICAID ==
[~2019-08-19] VITALS: Ht 167.6 cm; Wt 87.5 kg
[~2019-08-19 07:11] MED LIST changes: -CEFD300C3 PO
--- NOTE | 2019-08-19 07:20 | NUR ---
PT AMBULATORY TO BATHROOM WITH STANDBY ASSIST PT USUALLY USES WALKER, PT TO PROVIDE URINE SAMPLE
--- NOTE | 2019-08-19 07:34 | NUR ---
PT PROVIDED URINE SAMPLE WILL BRING DOWN TO LAB FOR PROCESSING.
[2019-08-19] MEDS ORDERED: normal saline 1000ML IV soln IVB ONE (07:35)
[2019-08-19] MEDS ORDERED: ondansetron/PF 4mg/2ml inj IV ONE (07:35)
[2019-08-19 07:57] LABS: CLARITY,URINE CLEAR (Clear); COLOR,URINE YELLOW (Yellow); GLUCOSE, URINE NEGATIVE (Neg); KETONES,URINE NEGATIVE (Neg); LEUKOCYTE ESTERASE ,URINE TRACE (Neg); NITRITES, URINE NEGATIVE (Neg); OCCULT BLOOD,URINE NEGATIVE (Neg); PROTEIN,URINE NEGATIVE (Neg); UROBILINOGEN,URINE 0.2 E.U/dL (0.2-1.0)
[2019-08-19 08:00] LABS: UA COLLECTION TYPE CLN CATCH MIDSTREAM
[2019-08-19 08:01] LABS: BASOPHILS # (AUTO) 0.1 X10'3 (0-0.2); EOSINOPHILS # (AUTO) 0.1 X10'3 (0-0.9); HEMATOCRIT 42.7 % (35.0-45.0); HEMOGLOBIN 14.6 g/dl (12.0-16.0); LYMPHOCYTES % (AUTO) 19.5 % (21-51); MEAN CORPUSCULAR HEMOGLOBIN 31.6 PG (27.0-31.0); MEAN CORPUSCULAR HGB CONC 34.2 g/dL (33.0-36.5); MEAN CORPUSCULAR VOLUME 92.3 FL (78-98); MEAN PLATELET VOLUME 9.3 FL (7.4-10.4); MONOCYTES # (AUTO) 0.5 X10'3 (0-0.9); MONOCYTES % (AUTO) 10.2 % (2-12); NEUTROPHILS # (AUTO) 3.6 X10'3 (1.8-7.7); NEUTROPHILS % (AUTO) 68.3 % (42-75); PLATELET COUNT 212 X10'3 (140-440); RED BLOOD COUNT 4.63 X10'6 (4.20-5.60); RED CELL DISTRIBUTION WIDTH 14.1 % (11.5-14.5); WHITE BLOOD COUNT 5.3 X10'3 (4.5-11.0)
[2019-08-19 08:05] LABS: HYALINE CASTS 0-3 /LPF (NEGATIVE); MUCUS STRANDS FEW /LPF (Neg); SQUAMOUS EPITHELIAL CELL,UR FEW /LPF (FEW)
[2019-08-19 08:06] LABS: BACTERIA,URINE FEW /HPF (Neg); RBC,URINE 0-2 /HPF (0-2); WBC,URINE 0-4 /HPF (0-4)
[2019-08-19 08:14] LABS: ALANINE AMINOTRANSFERASE 23 U/L (12-78); ALBUMIN 4.1 G/DL (3.4-5.0); ALBUMIN/GLOBULIN RATIO 1.1 (1.1-1.5); ALKALINE PHOSPHATASE 91 IU/L (46-116); ANION GAP 12 (8-16); ASPARTATE AMINO TRANSFERASE 24 U/L (10-37); BILIRUBIN,TOTAL 0.4 MG/DL (0.1-1.0); BLOOD UREA NITROGEN 8 MG/DL (7-18); BUN/CREATININE RATIO 7.8 (6.6-38.0); CALCIUM 9.6 MG/DL (8.5-10.1); CHLORIDE 101 MMOL/L (99-107); CREATININE 1.02 MG/DL (0.40-0.90); GLUCOSE 116 MG/DL (70-104); LIPASE 567 U/L (73-393); SODIUM 141 MMOL/L (135-145); TOTAL CARBON DIOXIDE 28.1 MMOL/L (24-32); TOTAL PROTEIN 7.9 G/DL (6.4-8.2); eGFR 65 ML/MIN
[2019-08-19] MEDS ORDERED: POTASSIUM BICARB 20meq eff tab 20 MEQ TABLET.EFF PO ONE (09:10)
[2019-08-19] MEDS ORDERED: ONDA4TAB6 PO (09:25)
[2019-08-19 09:46] VITALS: BP 178/96
== END 2019-08-19 09:47 | disposition home or self-care (01) ==
LOC: ER 07:12
DX: E87.6 Hypokalemia (principal); R11.2 Nausea with vomiting, unspecified; R19.7 Diarrhea, unspecified; R10.30 Lower abdominal pain, unspecified; I25.10 Atherosclerotic heart disease of native coronary artery without angina pectoris; E78.00 Pure hypercholesterolemia, unspecified; J44.9 Chronic obstructive pulmonary disease, unspecified; K21.9 Gastro-esophageal reflux disease without esophagitis; M19.90 Unspecified osteoarthritis, unspecified site; G89.29 Other chronic pain; I11.0 Hypertensive heart disease with heart failure; I50.9 Heart failure, unspecified; E11.42 Type 2 diabetes mellitus with diabetic polyneuropathy; Z95.5 Presence of coronary angioplasty implant and graft; Z90.49 Acquired absence of other specified parts of digestive tract; Z95.1 Presence of aortocoronary bypass graft; Z90.710 Acquired absence of both cervix and uterus; Z86.73 Personal history of transient ischemic attack (TIA), and cerebral infarction without residual deficits; Z56.0 Unemployment, unspecified; Z88.5 Allergy status to narcotic agent; Z79.82 Long term (current) use of aspirin; Z79.899 Other long term (current) drug therapy
CPT/HCPCS: 36415; 80053; 81001; 83690; 85025; 87088; 96361; 96374; 99283; J2405; J7030

== ENCOUNTER 2019-08-20 13:15 | Emergency (ER) | payer MEDICARE, MEDICAID ==
[~2019-08-20] VITALS: Ht 167.6 cm; Wt 87.5 kg
[~2019-08-20 13:15] MED LIST changes: +ONDA4TAB6 PO
[2019-08-20 13:35] VITALS: BP 113/67
== END 2019-08-20 16:47 | disposition left against medical advice (07) ==
LOC: ER 13:16
DX: R10.9 Unspecified abdominal pain (principal); R11.10 Vomiting, unspecified; Z53.21 Procedure and treatment not carried out due to patient leaving prior to being seen by health care provider

== ENCOUNTER 2020-02-24 14:59 | Inpatient (IN) | payer OTHER, MEDICAID ==
[~2020-02-24] VITALS: Ht 167.6 cm; Wt 88.6 kg
[2020-02-24 15:48] LABS: BASOPHILS # (AUTO) 0.1 X10'3 (0-0.2); BASOPHILS % (AUTO) 1.1 % (0-1); EOSINOPHILS # (AUTO) 0.1 X10'3 (0-0.9); HEMATOCRIT 47.7 % (35.0-45.0); LYMPHOCYTES # (AUTO) 1.4 X10'3 (1.1-4.8); LYMPHOCYTES % (AUTO) 22.7 % (21-51); MEAN CORPUSCULAR HEMOGLOBIN 29.2 PG (27.0-31.0); MEAN CORPUSCULAR HGB CONC 33.5 g/dL (33.0-36.5); MEAN CORPUSCULAR VOLUME 87.2 FL (78-98); MONOCYTES # (AUTO) 0.5 X10'3 (0-0.9); MONOCYTES % (AUTO) 8.5 % (2-12); NEUTROPHILS % (AUTO) 65.7 % (42-75); PLATELET COUNT 235 X10'3 (140-440); RED BLOOD COUNT 5.47 X10'6 (4.20-5.60); RED CELL DISTRIBUTION WIDTH 16.4 % (11.5-14.5); WHITE BLOOD COUNT 6.1 X10'3 (4.5-11.0)
--- NOTE | 2020-02-24 15:55 | NUR ---
Per Dr Jimenez hold additional aspirin since patient is on plavix.
[2020-02-24 15:59] LABS: PARTIAL THROMBOPLASTIN TIME 33 SECONDS (22-32)
[2020-02-24 16:01] LABS: ALANINE AMINOTRANSFERASE 21 U/L (12-78); ALBUMIN 3.6 G/DL (3.4-5.0); ALBUMIN/GLOBULIN RATIO 0.8 (1.1-1.5); ALKALINE PHOSPHATASE 88 IU/L (46-116); ANION GAP 14 (8-16); ASPARTATE AMINO TRANSFERASE 28 U/L (10-37); BILIRUBIN,TOTAL 0.4 MG/DL (0.1-1.0); BLOOD UREA NITROGEN 14 MG/DL (7-18); BUN/CREATININE RATIO 9.5 (6.6-38.0); CALCIUM 10.5 MG/DL (8.5-10.1); CHLORIDE 99 MMOL/L (99-107); CREATININE 1.47 MG/DL (0.40-0.90); GLUCOSE 176 MG/DL (70-104); POTASSIUM 3.2 MMOL/L (3.5-5.1); SODIUM 136 MMOL/L (135-145); TOTAL CARBON DIOXIDE 22.7 MMOL/L (24-32); TOTAL PROTEIN 7.9 G/DL (6.4-8.2); eGFR 42 ML/MIN
[2020-02-24] MEDS ORDERED: BRIM5DRO16 EACHEYE (16:14)
[2020-02-24] MEDS ORDERED: AMIT25TA9 PO (16:14)
[2020-02-24] MEDS ORDERED: ISOS120T13 PO (16:14)
[2020-02-24] MEDS ORDERED: TRAZ-251 PO (16:14)
[2020-02-24] MEDS ORDERED: potassium Cl 20 mEq SR tablet PO ONE (16:50)
[2020-02-24] MEDS ORDERED: heparin 25,000 UNIT/250ml bag 250 ML IV SCH (17:22)
[2020-02-24] MEDS ORDERED: aminophylline 250mg/10ml inj. IV PRN (17:25)
[2020-02-24] MEDS ORDERED: regadenoson 0.4mg/5ml syringe IV PRN (17:25)
[2020-02-24] MEDS ORDERED: mag hydrox/Alum hydrox/simeth 30ml oral suspension PO PRN (17:25)
[2020-02-24] MEDS ORDERED: magnesium 4gm in 100ml NS 100 ML IV PRN (17:25)
[2020-02-24] MEDS ORDERED: acetaminophen 325mg tablet PO PRN (17:25)
[2020-02-24] MEDS ORDERED: nitroGLYCERIN 0.4mg SUBLingual tab SL PRN ×2 (17:25→21:20)
[2020-02-24] MEDS ORDERED: magnesium 2GM in 50ml NS 50 ML IV PRN (17:25)
[2020-02-24] MEDS ORDERED: heparin 10,000 units/1 ML INJ IV PRN (17:25)
[2020-02-24] MEDS ORDERED: potassium Cl 20 mEq SR tablet PO PRN (17:25)
[2020-02-24] MEDS ORDERED: metoprolol tartrate 1mg/ml inj IV PRN (17:25)
[2020-02-24] MEDS ORDERED: heparin 10,000 units/1 ML INJ IV ONE (17:25)
[2020-02-24] MEDS ORDERED: docusate sod 100mg capsule PO PRN (17:25)
[2020-02-24] MEDS ORDERED: morphine 2 MG/ML inj. syringe IV PRN ×2 (17:25)
[2020-02-24] MEDS ORDERED: ondansetron/PF 4mg/2ml inj IV PRN (17:25)
[2020-02-24] MEDS ORDERED: potassium CL 10mEq/100ml bag 100 ML IV PRN ×2 (17:25)
[2020-02-24] MEDS ORDERED: ipratropium/albuterol 3ml nebule NEB PRN (17:50)
[2020-02-24] MEDS ORDERED: MESSAGE TO PHARMACY PO ONE (17:50)
[2020-02-24] MEDS ORDERED: dextrose ORAL solution 15 GM/59 ML bottle PO PRN (17:50)
[2020-02-24] MEDS ORDERED: glucagon, human recombinant 1mg kit SUBCUT PRN (17:50)
[2020-02-24] MEDS ORDERED: dextrose 50%-water 50ml dispensing syringe IV PRN ×2 (17:50)
[2020-02-24] MEDS ORDERED: insulin Lispro (HumaLOG) vial - multi-dose SQ SCH (17:50)
[2020-02-24 18:26] LABS: HEMOGLOBIN A1C 5.9 % (4.5-6.2)
--- NOTE | 2020-02-24 19:31 | NUR ---
Patient in room ED 5. I have received report from Ceferino OWENS and had the opportunity to ask questions and assume patient care.
[2020-02-24 19:40] VITALS: BP 125/74
[2020-02-24] MEDS: brimonidine 0.2% 5 ML ophthalmic drops EACHEYE SCH (20:00)
[2020-02-24] MEDS: K and/or MAG REPLACEMENT MC SCH (20:00)
[2020-02-24] MEDS: pregabalin 75mg capsule PO SCH (20:49)
[2020-02-24] MEDS: carvedilol 6.25mg tablet PO SCH (20:50)
[2020-02-24] MEDS: pregabalin 25mg capsule PO SCH (20:50)
[2020-02-24] MEDS: calcium carbonate/vitamin D3 tablet PO SCH (20:50)
[2020-02-24] MEDS: latanoprost 0.005% 2.5ml ophthalmic drops EACHEYE SCH (20:50)
[2020-02-24] MEDS: amitriptyline 25mg tablet PO SCH (20:54)
[2020-02-24] MEDS: insulin glargine (Lantus) pen - multi-dose SQ SCH (21:00)
[2020-02-24 22:00] VITALS: BP 120/79
[2020-02-25] VITALS (15 sets, daily range): BP systolic 60–141; BP diastolic 33–88
--- NOTE | 2020-02-25 00:08 | NUR ---
Called PTT of "no numerical value" to Dr Young. order to stop gtt and recheck in one hour.
[2020-02-25 01:46] LABS: BASOPHILS # (AUTO) 0.1 X10'3 (0-0.2); BASOPHILS % (AUTO) 1.1 % (0-1); EOSINOPHILS # (AUTO) 0.1 X10'3 (0-0.9); EOSINOPHILS % (AUTO) 2.3 % (0-6); HEMATOCRIT 46.1 % (35.0-45.0); HEMOGLOBIN 15.4 g/dl (12.0-16.0); LYMPHOCYTES # (AUTO) 1.7 X10'3 (1.1-4.8); LYMPHOCYTES % (AUTO) 29.2 % (21-51); MEAN CORPUSCULAR HEMOGLOBIN 29.3 PG (27.0-31.0); MEAN CORPUSCULAR HGB CONC 33.3 g/dL (33.0-36.5); MEAN CORPUSCULAR VOLUME 87.8 FL (78-98); MEAN PLATELET VOLUME 9.1 FL (7.4-10.4); MONOCYTES # (AUTO) 0.6 X10'3 (0-0.9); NEUTROPHILS # (AUTO) 3.4 X10'3 (1.8-7.7); NEUTROPHILS % (AUTO) 57.4 % (42-75); PLATELET COUNT 201 X10'3 (140-440); RED BLOOD COUNT 5.25 X10'6 (4.20-5.60); RED CELL DISTRIBUTION WIDTH 16.5 % (11.5-14.5)
[2020-02-25 03:45] LABS: ALANINE AMINOTRANSFERASE 19 U/L (12-78); ALBUMIN 3.6 G/DL (3.4-5.0); ALBUMIN/GLOBULIN RATIO 0.8 (1.1-1.5); ALKALINE PHOSPHATASE 86 IU/L (46-116); ANION GAP 10 (8-16); ASPARTATE AMINO TRANSFERASE 26 U/L (10-37); BILIRUBIN,TOTAL 0.4 MG/DL (0.1-1.0); BLOOD UREA NITROGEN 12 MG/DL (7-18); BUN/CREATININE RATIO 10.3 (6.6-38.0); CALCIUM 10.6 MG/DL (8.5-10.1); CHLORIDE 101 MMOL/L (99-107); CREATININE 1.16 MG/DL (0.40-0.90); GLUCOSE 94 MG/DL (70-104); POTASSIUM 3.5 MMOL/L (3.5-5.1); SODIUM 139 MMOL/L (135-145); TOTAL CARBON DIOXIDE 27.8 MMOL/L (24-32); TOTAL PROTEIN 7.9 G/DL (6.4-8.2); eGFR 56 ML/MIN
[2020-02-25 03:48] LABS: CHOL/HDL RATIO 3.6 (0.00-4.99); CHOLESTEROL 200 MG/DL (0-200); HDL CHOLESTEROL 55 MG/DL (35-60); LDL CHOLESTEROL 119 MG/DL (50-100); MAGNESIUM 1.8 MG/DL (1.5-2.4); TRIGLYCERIDES 128 MG/DL (20-135)
--- NOTE | 2020-02-25 06:23 | NUR ---
Problems reprioritized. Patient report given, questions answered & plan of care reviewed with Trudi OWENS.
--- NOTE | 2020-02-25 06:29 | NUR ---
Problems reprioritized. Patient report given, questions answered & plan of care reviewed with Padmini OWENS.
--- NOTE | 2020-02-25 06:45 | NUR ---
Patient in room PCU 3014. I have received report from Lynnette OWENS and had the opportunity to ask questions and assume patient care.
[2020-02-25] MEDS: atorvastatin 20mg tablet PO SCH (07:33)
[2020-02-25] MEDS: pantoprazole 40mg Tablet.DR PO SCH (07:34)
[2020-02-25] MEDS: levoTHYROXINE 88mcg tablet PO SCH (07:34)
[2020-02-25] MEDS: carvedilol 6.25mg tablet PO SCH ×2 (07:34→19:42)
[2020-02-25] MEDS: isosorbide mononitrate 30mg tab.SR.24H PO SCH (07:34)
[2020-02-25] MEDS: lisinopril 5mg tablet PO SCH (07:34)
[2020-02-25] MEDS: calcium carbonate/vitamin D3 tablet PO SCH ×2 (07:34→20:02)
[2020-02-25] MEDS: brimonidine 0.2% 5 ML ophthalmic drops EACHEYE SCH ×2 (08:00→19:41)
[2020-02-25] MEDS: K and/or MAG REPLACEMENT MC SCH ×2 (08:00→19:41)
[2020-02-25] MEDS: pregabalin 25mg capsule PO SCH ×3 (08:00→20:03)
[2020-02-25] MEDS: traZODone 50mg tablet PO SCH (08:00)
[2020-02-25] MEDS: pregabalin 75mg capsule PO SCH ×3 (08:00→20:03)
--- NOTE | 2020-02-25 08:00 | NUR ---
Held patients Lyrica and Trazadone this am. Patient very drowsy but does wake up, answers questions. Discussed patients medications being held with patient and patient verbalized understanding and was in agreement with holding medication at this time. Will continue to monitor patient.
--- NOTE | 2020-02-25 09:20 | NUR ---
transported pt on to [facility] for stress test. pt c/o of nausea during transport, pt on heparin gtt, while getting zofran medication pt became unresponsive in . rapid respond was called. pt had eyes open during unresponsive time approximally 5 mins, checked vitals, pt had a weak radial pulse, checked tele monitor, HR 64, RR 23, with ekg: NSR. helped arrived, Devin RN moved pt from to [facility]. camera, rapid respond and code teams arrived and resumed care. primary rn was notified. primary doctor present and resumed care.
--- NOTE | 2020-02-25 09:28 | NUR ---
Called Dominique in Nuc Med and advised patients PTT came back at 49
[2020-02-25 09:41] LABS: ABG BASE EXCESS -3.9 mmol/L (-2.0-2.0); ABG HCO3 20.2 mmol/L (22.0-26.0); ABG OXYGEN SATURATION 97.8 % (94-97); ABG PCO2 (T) 34.4 mmHg (32.0-45.0); ALLEN'S TEST POSITIVE; FCOHb 0.4 % (0.0-3.9); FLOW 4 L/min; FMetHb 0.1 % (0.0-1.5); FO2Hb 97.3 % (94-97)
--- NOTE | 2020-02-25 10:16 | NUR ---
PAGER ID: [phone] MESSAGE: Arpita [phone] Filomena Salmeron [id number] BP 71/43 HR 80 Please call
[2020-02-25] MEDS ORDERED: normal saline 500ml IV soln 500 ML IV ONE (10:20)
--- NOTE | 2020-02-25 10:23 | NUR ---
Dr Ko called back stated to DC heparin gtt. Give patient 500ML NS bolus now.
[2020-02-25] MEDS: acetaminophen 325mg tablet PO PRN (11:26)
--- NOTE | 2020-02-25 11:32 | NUR ---
Dr Ko aware patients Nicho would like him to call and advise on patients condition and plan.
--- NOTE | 2020-02-25 12:44 | NUR ---
PAGER ID: [phone] MESSAGE: Padmini PCU [phone] Re: Jaron 3014B BP 103/88 Can patient have her Lyrica please call Addendum: 02/25/20 at 1358 by Padmini Ingram RN Dr Ko spoke to rex Patton and stated he would have to re-evaluate medication and then let us know
[2020-02-25] MEDS: dextrose ORAL solution 15 GM/59 ML bottle PO PRN (15:49)
[2020-02-25] MEDS ORDERED: normal saline 1000ml 1,000 ML IVB ONE (15:56)
--- NOTE | 2020-02-25 15:58 | NUR ---
Paged Dr Ko patients BP is 67/45 HR 75 on Vitals machine, 60/40 Manual Patient has a headache and states she feels dizzy, placed in trendelenberg Received orders from Dr Ko for 1L NS bolus, Replace Blood glucose per protocol and start Maintenance fluids D5W at 80ml/hr
[2020-02-25] MEDS ORDERED: dextrose 5%-water 1,000 ML IV SCH (16:00)
--- NOTE | 2020-02-25 16:38 | NUR ---
Called patients per her request to let him know that her blood sugar and blood pressure has dropped again and that we are giving her extra fluids and medication to help increase her blood sugars. All questions answered and Nicho stated he did get to speak with Dr Ko today who answered his questions as well.
--- NOTE | 2020-02-25 17:42 | NUR ---
PAGER ID: [phone] MESSAGE: Padmini Preethi [phone] Re: Jaron last pressure 82/48 after bolus also had to give another 1/2 amp D50 for BG 58 now 103 Addendum: 02/25/20 at 1751 by Padmini Ingram RN Dr Maikel petty will start patient on Midodrine
[2020-02-25] MEDS: midodrine tablet 2.5 MG TABLET PO SCH ×2 (18:14→23:52)
--- NOTE | 2020-02-25 18:22 | NUR ---
Problems reprioritized. Patient report given, questions answered & plan of care reviewed with Alethea OWENS.
--- NOTE | 2020-02-25 18:23 | NUR ---
Patient in room PCU 3014. I have received report from Padmini OWENS and had the opportunity to ask questions and assume patient care.
[2020-02-25] MEDS: latanoprost 0.005% 2.5ml ophthalmic drops EACHEYE SCH (19:42)
[2020-02-25] MEDS: amitriptyline 25mg tablet PO SCH (20:03)
--- NOTE | 2020-02-25 20:14 | NUR ---
PAGER ID: [phone] MESSAGE: Dwain Mcrae [phone]: Patient has been having high BPs all day. BP came down from 192/98 to 152/87 after IV hydralazine. Can we DC his NS that's running at 100ml/hr? -Lynnette OWENS [phone] Addendum: 02/25/20 at 2048 by Calli Blanc RN wrong pt
[2020-02-25] MEDS: insulin glargine (Lantus) pen - multi-dose SQ SCH (20:39)
--- NOTE | 2020-02-25 20:49 | NUR ---
PAGER ID: [phone] MESSAGE: Iza Salmeron [id number]:Pt has had multiple episodes of hypoglyemia.Currently running D5 @80ml/hr and ate a full meal.BG was still 46 after this.Administered an amp of D50 which brought it up to 125.Possibly change fluids to D10? -Lynnette OWENS [phone]
[2020-02-25] MEDS: Dextrose 10%-water IV solution 1,000 ML IV SCH (21:04)
[2020-02-26] VITALS (8 sets, daily range): BP systolic 88–154; BP diastolic 49–83
--- NOTE | 2020-02-26 06:23 | NUR ---
Patient in room PCU 3014. I have received report from Lynnette OWENS and had the opportunity to ask questions and assume patient care.
--- NOTE | 2020-02-26 06:27 | NUR ---
Problems reprioritized. Patient report given, questions answered & plan of care reviewed with Ingrid OWENS.
[2020-02-26 06:45] LABS: BASOPHILS % (AUTO) 0.9 % (0-1); EOSINOPHILS # (AUTO) 0.1 X10'3 (0-0.9); EOSINOPHILS % (AUTO) 2.6 % (0-6); HEMATOCRIT 40.3 % (35.0-45.0); HEMOGLOBIN 13.2 g/dl (12.0-16.0); LYMPHOCYTES # (AUTO) 1.1 X10'3 (1.1-4.8); LYMPHOCYTES % (AUTO) 24.2 % (21-51); MEAN CORPUSCULAR HEMOGLOBIN 28.5 PG (27.0-31.0); MEAN CORPUSCULAR HGB CONC 32.6 g/dL (33.0-36.5); MEAN CORPUSCULAR VOLUME 87.2 FL (78-98); MEAN PLATELET VOLUME 9.4 FL (7.4-10.4); MONOCYTES # (AUTO) 0.5 X10'3 (0-0.9); MONOCYTES % (AUTO) 10.4 % (2-12); NEUTROPHILS # (AUTO) 2.8 X10'3 (1.8-7.7); NEUTROPHILS % (AUTO) 61.9 % (42-75); PLATELET COUNT 162 X10'3 (140-440); RED BLOOD COUNT 4.62 X10'6 (4.20-5.60); RED CELL DISTRIBUTION WIDTH 16.5 % (11.5-14.5); WHITE BLOOD COUNT 4.5 X10'3 (4.5-11.0)
[2020-02-26 07:00] LABS: ALANINE AMINOTRANSFERASE 16 U/L (12-78); ALBUMIN/GLOBULIN RATIO 0.9 (1.1-1.5); ALKALINE PHOSPHATASE 72 IU/L (46-116); ANION GAP 9 (8-16); ASPARTATE AMINO TRANSFERASE 22 U/L (10-37); BILIRUBIN,TOTAL 0.3 MG/DL (0.1-1.0); BLOOD UREA NITROGEN 8 MG/DL (7-18); BUN/CREATININE RATIO 7.3 (6.6-38.0); CHLORIDE 108 MMOL/L (99-107); GLUCOSE 120 MG/DL (70-104); MAGNESIUM 1.6 MG/DL (1.5-2.4); POTASSIUM 3.3 MMOL/L (3.5-5.1); SODIUM 143 MMOL/L (135-145); TOTAL CARBON DIOXIDE 25.9 MMOL/L (24-32); TOTAL PROTEIN 6.5 G/DL (6.4-8.2); eGFR 59 ML/MIN
[2020-02-26] MEDS: brimonidine 0.2% 5 ML ophthalmic drops EACHEYE SCH ×2 (07:10→20:31)
[2020-02-26] MEDS: aspirin 81mg tab.chew PO SCH (07:10)
[2020-02-26] MEDS: clopidogrel 75mg tablet PO SCH (07:11)
[2020-02-26] MEDS: pregabalin 25mg capsule PO SCH ×3 (07:11→20:53)
[2020-02-26] MEDS: levoTHYROXINE 88mcg tablet PO SCH (07:11)
[2020-02-26] MEDS: pantoprazole 40mg Tablet.DR PO SCH (07:12)
[2020-02-26] MEDS: pregabalin 75mg capsule PO SCH ×3 (07:12→20:53)
[2020-02-26] MEDS: calcium carbonate/vitamin D3 tablet PO SCH ×2 (07:12→20:31)
[2020-02-26] MEDS: atorvastatin 20mg tablet PO SCH (07:12)
[2020-02-26] MEDS: midodrine tablet 2.5 MG TABLET PO SCH ×2 (07:12→16:42)
[2020-02-26] MEDS: carvedilol 6.25mg tablet PO SCH ×2 (07:19→20:00)
[2020-02-26] MEDS: isosorbide mononitrate 30mg tab.SR.24H PO SCH (07:20)
[2020-02-26] MEDS: lisinopril 5mg tablet PO SCH (07:20)
[2020-02-26] MEDS: traZODone 50mg tablet PO SCH (07:20)
[2020-02-26] MEDS: K and/or MAG REPLACEMENT MC SCH ×2 (07:46→20:00)
[2020-02-26] MEDS: potassium Cl 20 mEq SR tablet PO PRN ×2 (07:53→14:05)
[2020-02-26] MEDS: acetaminophen 325mg tablet PO PRN ×2 (07:53→14:05)
[2020-02-26] MEDS: Dextrose 10%-water IV solution 1,000 ML IV SCH ×2 (08:58→22:12)
--- NOTE | 2020-02-26 14:56 | NUR ---
Cardiac diet consult: Pt admit with NSTEMI with PMH that includes CHF, HLD, and T2DM. Current A1c is 5.9%, highest A1c was 6.1% in March 2018 per records, DM education not warranted at this time. Current lipid panel with WNL except for elevated LDL of 119 mg/dL. Pt seen at bedside provided with written and verbal heart healthy nutrition therapy education. Malnutrition consult: Pt unsure of wt loss and reports decreased appetite per malnutrition risk screen with RN. Pt reports fluctuating UBW, previously weighing close to 200 lbs however reports 45 lb wt loss in the last six months and believes she weighs around 140 lbs. Pt states wt loss is r/t poor appetite resulting in poor PO intake and reports usually consumes two meals a day. Pt states she had gained weight and stopped snacking in order to lose weight however is wanting to eat more now to gain weight. Pt with scaled wt hx of 188 lbs taken 04/15/19 with a standing scale, current documented weight is 195 lbs however isn't scaled. Pt does not appear to weigh reported 140 lbs and is currently with 75-100% PO intake on heart healthy CHO controlled diet meeting nutrient needs. Pt would benefit from diet liberalization to just heart healthy given A1c of 5.9% and no significantly elevated BG levels during admission. Pt with no documented decrease in muscle strength or significant edema. No visible fat or muscle wasting. Pt currently lacks a minimum of two criteria for malnutrition at this time. Pt provided with RD contact information as well as ONS coupons for if pt having low PO intake following discharge. Pt requests yogurt BIDBD and cottage cheese q lunch, d/w dietary. All of patient's questions were answered at this time. Will continue to follow. Addendum: 02/26/20 at [address] Amended: Links added.
[2020-02-26] MEDS ORDERED: HYDROcodone/acetaminophen 5mg/325mg tablet PO PRN (15:10)
[2020-02-26] MEDS: dextrose ORAL solution 15 GM/59 ML bottle PO PRN ×4 (15:16→22:36)
--- NOTE | 2020-02-26 15:45 | NUR ---
Pt's blood sugar was 70, gave one 15Gm glucsose shot, waited 15 minutes, rechecked blood sugar, it came up to 129.
--- NOTE | 2020-02-26 17:58 | NUR ---
Patients blood sugar was 61, gave oral glucose 15 grams, will recheck in 15 minutes Addendum: 02/26/20 at 1815 by Divine Kincaid RN Blood sugar recheck was 77, patient asymptomatic and eating dinner
--- NOTE | 2020-02-26 18:03 | NUR ---
Problems reprioritized. Patient report given, questions answered & plan of care reviewed with Lynnette OWENS.
--- NOTE | 2020-02-26 18:21 | NUR ---
Patient in room PCU 3014. I have received report from Ingrid OWENS and had the opportunity to ask questions and assume patient care.
[2020-02-26] MEDS ORDERED: glucagon, human recombinant 1mg kit SUBCUT ONE (19:40)
[2020-02-26] MEDS: latanoprost 0.005% 2.5ml ophthalmic drops EACHEYE SCH (20:32)
[2020-02-26] MEDS: amitriptyline 25mg tablet PO SCH (20:53)
[2020-02-26] MEDS: insulin glargine (Lantus) pen - multi-dose SQ SCH (20:54)
[2020-02-27] MEDS: midodrine tablet 2.5 MG TABLET PO SCH ×3 (00:06→15:28)
[2020-02-27 01:54] VITALS: BP 102/68
[2020-02-27 06:00] VITALS: BP 123/65
[2020-02-27 06:06] LABS: ALANINE AMINOTRANSFERASE 17 U/L (12-78); ALBUMIN/GLOBULIN RATIO 0.9 (1.1-1.5); ALKALINE PHOSPHATASE 70 IU/L (46-116); ANION GAP 11 (8-16); ASPARTATE AMINO TRANSFERASE 30 U/L (10-37); BILIRUBIN,TOTAL 0.3 MG/DL (0.1-1.0); BLOOD UREA NITROGEN 8 MG/DL (7-18); BUN/CREATININE RATIO 8.2 (6.6-38.0); CALCIUM 9.7 MG/DL (8.5-10.1); CHLORIDE 105 MMOL/L (99-107); CREATININE 0.98 MG/DL (0.40-0.90); GLUCOSE 93 MG/DL (70-104); MAGNESIUM 1.3 MG/DL (1.5-2.4); SODIUM 139 MMOL/L (135-145); TOTAL CARBON DIOXIDE 23.2 MMOL/L (24-32); TOTAL PROTEIN 6.5 G/DL (6.4-8.2); eGFR 68 ML/MIN
[2020-02-27 06:17] LABS: POTASSIUM 4.1 MMOL/L (3.5-5.1)
--- NOTE | 2020-02-27 06:17 | NUR ---
Problems reprioritized. Patient report given, questions answered & plan of care reviewed with Martina OWENS.
--- NOTE | 2020-02-27 06:20 | NUR ---
Patient in room PCU 3014. I have received report from ROMAN Church and had the opportunity to ask questions and assume patient care. Gave pt a snack for her blood sugar of 76, will continue to monitor hourly.
[2020-02-27 07:22] LABS: BASOPHILS % (AUTO) 1.2 % (0-1); EOSINOPHILS # (AUTO) 0.1 X10'3 (0-0.9); EOSINOPHILS % (AUTO) 3.7 % (0-6); HEMATOCRIT 44.2 % (35.0-45.0); HEMOGLOBIN 14.5 g/dl (12.0-16.0); LYMPHOCYTES # (AUTO) 1.1 X10'3 (1.1-4.8); MEAN CORPUSCULAR HEMOGLOBIN 28.9 PG (27.0-31.0); MEAN CORPUSCULAR HGB CONC 32.8 g/dL (33.0-36.5); MEAN PLATELET VOLUME 9.8 FL (7.4-10.4); MONOCYTES # (AUTO) 0.4 X10'3 (0-0.9); MONOCYTES % (AUTO) 11.5 % (2-12); NEUTROPHILS % (AUTO) 53.6 % (42-75); PLATELET COUNT 167 X10'3 (140-440); RED BLOOD COUNT 5.03 X10'6 (4.20-5.60); RED CELL DISTRIBUTION WIDTH 16.8 % (11.5-14.5); WHITE BLOOD COUNT 3.8 X10'3 (4.5-11.0)
[2020-02-27] MEDS: lisinopril 5mg tablet PO SCH (08:00)
[2020-02-27] MEDS: carvedilol 6.25mg tablet PO SCH (08:12)
[2020-02-27] MEDS: atorvastatin 20mg tablet PO SCH (08:12)
[2020-02-27] MEDS: traZODone 50mg tablet PO SCH (08:13)
[2020-02-27] MEDS: clopidogrel 75mg tablet PO SCH (08:13)
[2020-02-27] MEDS: pantoprazole 40mg Tablet.DR PO SCH (08:13)
[2020-02-27] MEDS: calcium carbonate/vitamin D3 tablet PO SCH ×2 (08:13→20:21)
[2020-02-27] MEDS: isosorbide mononitrate 30mg tab.SR.24H PO SCH (08:13)
[2020-02-27] MEDS: levoTHYROXINE 88mcg tablet PO SCH (08:13)
[2020-02-27] MEDS: aspirin 81mg tab.chew PO SCH (08:14)
[2020-02-27] MEDS: brimonidine 0.2% 5 ML ophthalmic drops EACHEYE SCH ×2 (08:15→20:22)
[2020-02-27] MEDS: magnesium Cl slow-release 64mg tablet PO PRN (08:25)
[2020-02-27] MEDS: K and/or MAG REPLACEMENT MC SCH ×2 (08:26→20:00)
[2020-02-27] MEDS: pregabalin 25mg capsule PO SCH ×3 (10:18→20:21)
[2020-02-27] MEDS: pregabalin 75mg capsule PO SCH ×3 (10:18→20:21)
[2020-02-27 11:00] VITALS: BP 120/66
[2020-02-27 15:00] VITALS: BP 101/73
[2020-02-27] MEDS: dextrose ORAL solution 15 GM/59 ML bottle PO PRN (15:44)
--- NOTE | 2020-02-27 16:13 | NUR ---
Pt's blood sugar was 49 at 1500, gave dose of Glucagon 1mg/1ml per MD orders, gave a snack, rechecked blood sugar, was 54, gave pt a 15Gm glucose shot and another snack, waited another 15 minutes, pt's blood sugar came up to 86, will continue to monitor.
--- NOTE | 2020-02-27 18:23 | NUR ---
Problems reprioritized. Patient report given, questions answered & plan of care reviewed with ROMAN Stroud. Explained to nurse pt is getting Q1H accuchecks due to blood sugars dropping, and pt needs one more dose of Slow Mag 128mg due to Mag level being 1.3, I already administered one dose.
[2020-02-27 19:00] VITALS: BP 108/65
[2020-02-27] MEDS: amitriptyline 25mg tablet PO SCH (20:21)
[2020-02-27] MEDS: latanoprost 0.005% 2.5ml ophthalmic drops EACHEYE SCH (20:22)
[2020-02-27] MEDS: insulin glargine (Lantus) pen - multi-dose SQ SCH (21:00)
[2020-02-27 23:00] VITALS: BP 93/59
[2020-02-28] MEDS: midodrine tablet 2.5 MG TABLET PO SCH ×2 (00:07→07:42)
[2020-02-28 03:00] VITALS: BP 105/57
[2020-02-28 06:00] VITALS: BP 121/75
--- NOTE | 2020-02-28 06:19 | NUR ---
Patient in room PCU 3014. I have received report from ROMAN Stroud and had the opportunity to ask questions and assume patient care. Pt sleeping comfortably.
[2020-02-28] MEDS: dextrose ORAL solution 15 GM/59 ML bottle PO PRN ×2 (06:26→07:07)
[2020-02-28 06:30] LABS: BASOPHILS % (AUTO) 1.1 % (0-1); EOSINOPHILS # (AUTO) 0.2 X10'3 (0-0.9); EOSINOPHILS % (AUTO) 3.7 % (0-6); HEMATOCRIT 37.8 % (35.0-45.0); HEMOGLOBIN 12.3 g/dl (12.0-16.0); LYMPHOCYTES # (AUTO) 1.5 X10'3 (1.1-4.8); LYMPHOCYTES % (AUTO) 35.3 % (21-51); MEAN CORPUSCULAR HEMOGLOBIN 28.5 PG (27.0-31.0); MEAN CORPUSCULAR HGB CONC 32.6 g/dL (33.0-36.5); MEAN CORPUSCULAR VOLUME 87.5 FL (78-98); MEAN PLATELET VOLUME 9.6 FL (7.4-10.4); MONOCYTES # (AUTO) 0.5 X10'3 (0-0.9); MONOCYTES % (AUTO) 11.4 % (2-12); NEUTROPHILS # (AUTO) 2.1 X10'3 (1.8-7.7); NEUTROPHILS % (AUTO) 48.5 % (42-75); PLATELET COUNT 164 X10'3 (140-440); RED BLOOD COUNT 4.32 X10'6 (4.20-5.60); RED CELL DISTRIBUTION WIDTH 16.7 % (11.5-14.5); WHITE BLOOD COUNT 4.3 X10'3 (4.5-11.0)
[2020-02-28 06:36] LABS: ALANINE AMINOTRANSFERASE 21 U/L (12-78); ALBUMIN/GLOBULIN RATIO 0.8 (1.1-1.5); ALKALINE PHOSPHATASE 75 IU/L (46-116); ANION GAP 6 (8-16); ASPARTATE AMINO TRANSFERASE 25 U/L (10-37); BILIRUBIN,TOTAL 0.2 MG/DL (0.1-1.0); BLOOD UREA NITROGEN 11 MG/DL (7-18); BUN/CREATININE RATIO 10.2 (6.6-38.0); CALCIUM 10.2 MG/DL (8.5-10.1); CHLORIDE 104 MMOL/L (99-107); CREATININE 1.08 MG/DL (0.40-0.90); GLUCOSE 91 MG/DL (70-104); MAGNESIUM 1.4 MG/DL (1.5-2.4); POTASSIUM 4.1 MMOL/L (3.5-5.1); SODIUM 140 MMOL/L (135-145); TOTAL CARBON DIOXIDE 29.7 MMOL/L (24-32); TOTAL PROTEIN 6.6 G/DL (6.4-8.2); eGFR 61 ML/MIN
[2020-02-28] MEDS: atorvastatin 20mg tablet PO SCH (07:42)
[2020-02-28] MEDS: levoTHYROXINE 88mcg tablet PO SCH (07:42)
[2020-02-28] MEDS: isosorbide mononitrate 30mg tab.SR.24H PO SCH (07:42)
[2020-02-28] MEDS: traZODone 50mg tablet PO SCH (07:42)
[2020-02-28] MEDS: calcium carbonate/vitamin D3 tablet PO SCH (07:42)
[2020-02-28] MEDS: magnesium Cl slow-release 64mg tablet PO PRN (07:42)
[2020-02-28] MEDS: pregabalin 75mg capsule PO SCH (07:43)
[2020-02-28] MEDS: pregabalin 25mg capsule PO SCH (07:43)
[2020-02-28] MEDS: aspirin 81mg tab.chew PO SCH (07:43)
[2020-02-28] MEDS: brimonidine 0.2% 5 ML ophthalmic drops EACHEYE SCH (07:48)
[2020-02-28] MEDS: clopidogrel 75mg tablet PO SCH (07:48)
[2020-02-28] MEDS: pantoprazole 40mg Tablet.DR PO SCH (07:48)
[2020-02-28] MEDS: K and/or MAG REPLACEMENT MC SCH (08:00)
[2020-02-28] MEDS ORDERED: midodrine 5mg tablet PO SCH (08:55)
[2020-02-28 11:00] VITALS: BP 95/59
[2020-02-28] MEDS ORDERED: pregabalin 25mg capsule PO SCH (13:00)
[2020-02-28] MEDS ORDERED: LYR25C PO (14:42)
[2020-02-28] MEDS ORDERED: MIDO5TAB4 PO (14:42)
[2020-02-28 15:00] VITALS: BP 104/54
--- NOTE | 2020-02-28 17:25 | NUR ---
Pt stable for discharge per MD orders. All belongings were collected and sent with pt. Discharge instructions were given to pt, and daughter. New rx's called into [facility] on [address]. Tele discontinued, telescope repairer notified. Extended PIV discontinued, cannula intact. Wheeled to lobby, helped pt into personal vehicle.
== END 2020-02-28 17:21 | disposition home or self-care (01) | DRG 281 ==
LOC: ER 15:00 → ED HOLD 17:22 → PCU 3S 19:44
PROVIDERS: ADMIT Family Medicine; ATTEND Family Medicine
DX: I21.4 Non-ST elevation (NSTEMI) myocardial infarction (principal); I50.22 Chronic systolic (congestive) heart failure; I13.0 Hypertensive heart and chronic kidney disease with heart failure and stage 1 through stage 4 chronic kidney disease, or unspecified chronic kidney disease; G93.40 Encephalopathy, unspecified; E87.6 Hypokalemia; E11.649 Type 2 diabetes mellitus with hypoglycemia without coma; E03.9 Hypothyroidism, unspecified; E11.22 Type 2 diabetes mellitus with diabetic chronic kidney disease; E11.42 Type 2 diabetes mellitus with diabetic polyneuropathy; E78.00 Pure hypercholesterolemia, unspecified; E78.5 Hyperlipidemia, unspecified; E83.52 Hypercalcemia; F03.90 Unspecified dementia, unspecified severity, without behavioral disturbance, psychotic disturbance, mood disturbance, and anxiety; F32.9 Major depressive disorder, single episode, unspecified; F41.9 Anxiety disorder, unspecified; G89.4 Chronic pain syndrome; Z96.642 Presence of left artificial hip joint; K21.9 Gastro-esophageal reflux disease without esophagitis; K80.20 Calculus of gallbladder without cholecystitis without obstruction; M19.90 Unspecified osteoarthritis, unspecified site; I25.110 Atherosclerotic heart disease of native coronary artery with unstable angina pectoris; J44.9 Chronic obstructive pulmonary disease, unspecified; M06.9 Rheumatoid arthritis, unspecified; N18.3 Chronic kidney disease, stage 3 (moderate); Z79.82 Long term (current) use of aspirin; Z79.84 Long term (current) use of oral hypoglycemic drugs; Z80.3 Family history of malignant neoplasm of breast; Z82.49 Family history of ischemic heart disease and other diseases of the circulatory system; Z85.3 Personal history of malignant neoplasm of breast; Z86.73 Personal history of transient ischemic attack (TIA), and cerebral infarction without residual deficits; Z90.710 Acquired absence of both cervix and uterus; Z79.899 Other long term (current) drug therapy; Z88.5 Allergy status to narcotic agent; Z95.1 Presence of aortocoronary bypass graft
CPT/HCPCS: 36415; 36600; 70450; 71045; 80053; 80061; 82803; 82948; 83036; 83735; 83880; 84443; 84484; 85018; 85025; 85610; 85730; 87081; 93005; 93306; 94760; 96374; 97161; 97530; 99291; A9500; G0378; J1610; J1644; J1815; J7030; J7040; J7070

== ENCOUNTER 2020-03-02 12:23 | Emergency (ER) | payer MEDICARE, MEDICAID ==
[~2020-03-02 12:23] MED LIST changes: +AMIT25TA9 PO; +BRIM5DRO16 EACHEYE; -CALC-1197 PO; -CARV6.253 PO; -DULO60CA65 PO; +ISOS120T13 PO; -ISOS60TA4 PO; +LYR25C PO; +MIDO5TAB4 PO; -ONDA4TAB6 PO; -PREG200C28 PO; +TRAZ-251 PO
[2020-03-02 12:52] LABS: BASOPHILS % (AUTO) 0.9 % (0-1); EOSINOPHILS # (AUTO) 0.1 X10'3 (0-0.9); EOSINOPHILS % (AUTO) 3.5 % (0-6); HEMATOCRIT 30.1 % (35.0-45.0); HEMOGLOBIN 9.9 g/dl (12.0-16.0); LYMPHOCYTES # (AUTO) 0.9 X10'3 (1.1-4.8); LYMPHOCYTES % (AUTO) 24.8 % (21-51); MEAN CORPUSCULAR HEMOGLOBIN 28.6 PG (27.0-31.0); MEAN CORPUSCULAR HGB CONC 32.9 g/dL (33.0-36.5); MEAN PLATELET VOLUME 9.1 FL (7.4-10.4); MONOCYTES # (AUTO) 0.3 X10'3 (0-0.9); MONOCYTES % (AUTO) 8.9 % (2-12); NEUTROPHILS # (AUTO) 2.3 X10'3 (1.8-7.7); NEUTROPHILS % (AUTO) 61.9 % (42-75); PLATELET COUNT 148 X10'3 (140-440); RED BLOOD COUNT 3.46 X10'6 (4.20-5.60); RED CELL DISTRIBUTION WIDTH 16.5 % (11.5-14.5); WHITE BLOOD COUNT 3.7 X10'3 (4.5-11.0)
[2020-03-02 13:09] LABS: ALANINE AMINOTRANSFERASE 15 U/L (12-78); ALBUMIN 3.1 G/DL (3.4-5.0); ALKALINE PHOSPHATASE 69 IU/L (46-116); ANION GAP 8 (8-16); ASPARTATE AMINO TRANSFERASE 18 U/L (10-37); BILIRUBIN,TOTAL 0.2 MG/DL (0.1-1.0); BLOOD UREA NITROGEN 12 MG/DL (7-18); BUN/CREATININE RATIO 9.8 (6.6-38.0); CALCIUM 8.5 MG/DL (8.5-10.1); CHLORIDE 106 MMOL/L (99-107); CREATININE 1.23 MG/DL (0.40-0.90); GLUCOSE 120 MG/DL (70-104); POTASSIUM 3.8 MMOL/L (3.5-5.1); SODIUM 140 MMOL/L (135-145); TOTAL CARBON DIOXIDE 26.3 MMOL/L (24-32); TOTAL PROTEIN 6.2 G/DL (6.4-8.2); eGFR 52 ML/MIN
[2020-03-02 13:53] LABS: D-DIMER 1.11 MG/L FEU (0-0.50)
[2020-03-02] MEDS ORDERED: AZIT-63 PO (13:53)
[2020-03-02] MEDS ORDERED: HYDR-3965 PO (13:53)
[2020-03-02] MEDS ORDERED: iohexol 350MG/ML 100ml bottle IV ONE (14:42)
[2020-03-02 15:30] VITALS: BP 156/84
== END 2020-03-02 17:03 | disposition home or self-care (01) ==
LOC: ER 12:24
DX: R09.1 Pleurisy (principal); J20.9 Acute bronchitis, unspecified; R07.89 Other chest pain; R06.02 Shortness of breath; F03.90 Unspecified dementia, unspecified severity, without behavioral disturbance, psychotic disturbance, mood disturbance, and anxiety; I25.10 Atherosclerotic heart disease of native coronary artery without angina pectoris; I50.9 Heart failure, unspecified; E78.00 Pure hypercholesterolemia, unspecified; I11.0 Hypertensive heart disease with heart failure; J44.9 Chronic obstructive pulmonary disease, unspecified; K21.9 Gastro-esophageal reflux disease without esophagitis; E11.42 Type 2 diabetes mellitus with diabetic polyneuropathy; M19.90 Unspecified osteoarthritis, unspecified site; G89.29 Other chronic pain; Z90.710 Acquired absence of both cervix and uterus; Z90.49 Acquired absence of other specified parts of digestive tract; Z98.61 Coronary angioplasty status; Z98.890 Other specified postprocedural states; Z86.73 Personal history of transient ischemic attack (TIA), and cerebral infarction without residual deficits; Z88.5 Allergy status to narcotic agent; Z79.82 Long term (current) use of aspirin; Z79.2 Long term (current) use of antibiotics; Z79.899 Other long term (current) drug therapy
CPT/HCPCS: 36415; 71045; 71275; 80053; 84145; 84484; 85025; 85379; 87635; 93005; 99285; C9803; Q9967

== ENCOUNTER 2020-03-05 14:18 | Emergency (ER) | payer MEDICARE, MEDICAID ==
[~2020-03-05] VITALS: Ht 167.6 cm; Wt 86.0 kg
[~2020-03-05 14:18] MED LIST changes: +AZIT-63 PO; +HYDR-3965 PO
--- NOTE | 2020-03-05 14:41 | NUR ---
xray at bedside
[2020-03-05 15:03] LABS: BASOPHILS % (AUTO) 0.4 % (0-1); EOSINOPHILS # (AUTO) 0.1 X10'3 (0-0.9); HEMATOCRIT 33.4 % (35.0-45.0); LYMPHOCYTES % (AUTO) 11.8 % (21-51); MEAN CORPUSCULAR HEMOGLOBIN 28.9 PG (27.0-31.0); MEAN CORPUSCULAR HGB CONC 33.1 g/dL (33.0-36.5); MEAN CORPUSCULAR VOLUME 87.3 FL (78-98); MEAN PLATELET VOLUME 8.9 FL (7.4-10.4); MONOCYTES # (AUTO) 0.5 X10'3 (0-0.9); MONOCYTES % (AUTO) 5.4 % (2-12); NEUTROPHILS % (AUTO) 81.4 % (42-75); PLATELET COUNT 158 X10'3 (140-440); RED BLOOD COUNT 3.82 X10'6 (4.20-5.60); RED CELL DISTRIBUTION WIDTH 16.3 % (11.5-14.5); WHITE BLOOD COUNT 8.6 X10'3 (4.5-11.0)
[2020-03-05 15:14] LABS: ALANINE AMINOTRANSFERASE 14 U/L (12-78); ALBUMIN 3.2 G/DL (3.4-5.0); ALBUMIN/GLOBULIN RATIO 0.9 (1.1-1.5); ALKALINE PHOSPHATASE 75 IU/L (46-116); ANION GAP 13 (8-16); ASPARTATE AMINO TRANSFERASE 26 U/L (10-37); BILIRUBIN,TOTAL 0.4 MG/DL (0.1-1.0); BLOOD UREA NITROGEN 6 MG/DL (7-18); BUN/CREATININE RATIO 5.9 (6.6-38.0); CALCIUM 8.9 MG/DL (8.5-10.1); CHLORIDE 103 MMOL/L (99-107); CREATININE 1.01 MG/DL (0.40-0.90); GLUCOSE 80 MG/DL (70-104); POTASSIUM 3.1 MMOL/L (3.5-5.1); SODIUM 141 MMOL/L (135-145); TOTAL CARBON DIOXIDE 25.1 MMOL/L (24-32); TOTAL PROTEIN 6.7 G/DL (6.4-8.2); eGFR 65 ML/MIN
[2020-03-05 15:43] LABS: CLARITY,URINE CLEAR (Clear); COLOR,URINE STRAW (Yellow); GLUCOSE, URINE NEGATIVE (Neg); KETONES,URINE NEGATIVE (Neg); LEUKOCYTE ESTERASE ,URINE NEGATIVE (Neg); NITRITES, URINE NEGATIVE (Neg); OCCULT BLOOD,URINE NEGATIVE (Neg); PH,URINE 5.5 (4.8-8.0); PROTEIN,URINE NEGATIVE (Neg); UROBILINOGEN,URINE 0.2 E.U/dL (0.2-1.0)
[2020-03-05 15:49] LABS: D-DIMER 1.06 MG/L FEU (0-0.50)
[2020-03-05 16:00] LABS: UA COLLECTION TYPE STRAIGHT CATH
--- NOTE | 2020-03-05 16:14 | NUR ---
spoke to pt daughter taken verbal consent from pt to talk and share information if needed,pt daughter finesse [phone] asked how her mother doing informed taht pt is stable ,resting in her bed and pt stated that she will call her daughter.
[2020-03-05] MEDS ORDERED: furosemide 20MG tablet PO ONE (16:35)
[2020-03-05] MEDS ORDERED: FURO-150 PO (16:38)
[2020-03-05 17:03] VITALS: BP 142/80
== END 2020-03-05 17:05 | disposition home or self-care (01) ==
LOC: ER 14:19
DX: I50.22 Chronic systolic (congestive) heart failure (principal); F03.90 Unspecified dementia, unspecified severity, without behavioral disturbance, psychotic disturbance, mood disturbance, and anxiety; E11.42 Type 2 diabetes mellitus with diabetic polyneuropathy; I25.10 Atherosclerotic heart disease of native coronary artery without angina pectoris; E78.00 Pure hypercholesterolemia, unspecified; I11.0 Hypertensive heart disease with heart failure; J44.9 Chronic obstructive pulmonary disease, unspecified; K21.9 Gastro-esophageal reflux disease without esophagitis; M19.90 Unspecified osteoarthritis, unspecified site; G89.29 Other chronic pain; Z86.73 Personal history of transient ischemic attack (TIA), and cerebral infarction without residual deficits; Z98.61 Coronary angioplasty status; Z95.1 Presence of aortocoronary bypass graft; Z90.710 Acquired absence of both cervix and uterus; Z98.890 Other specified postprocedural states; Z56.0 Unemployment, unspecified; Z79.82 Long term (current) use of aspirin; Z79.2 Long term (current) use of antibiotics; Z79.899 Other long term (current) drug therapy
CPT/HCPCS: 36415; 71045; 80053; 81003; 83880; 84484; 85025; 85379; 93005; 99285